=== PATIENT | female | born 1945 ===

== ENCOUNTER 2016-06-13 15:13 | Emergency (ER) | payer MEDICARE, OTHER ==
[2016-06-13 15:14] VITALS: BMI 19.8
[2016-06-13 15:20] VITALS: BP 151/53; PULSE 75; RESP 16; TEMP 98.3; O2SAT 98
--- NOTE | 2016-06-13 15:47 | ED PDOC ---
HPI: Trauma/Fall - HPI Time Seen by Provider: 06/13/16 15:22 Chief Complaint (Nursing): Lower Extremity Problem/Injury Chief Complaint (Provider): left hand pain History Per: Patient, Family (daughter) History/Exam Limitations: no limitations Onset/Duration Of Symptoms: Days (x3) Location Of Injury: Right: Knee, Left: Elbow, Hand, Knee Severity: Mild Additional Complaint(s): Patient is a 71 year old female presenting to the ED complaining left hand pain status post fall x3 days ago. Patient reports she fell onto her left outstretched arm. Hand pain is associated with elbow pain, bilateral knee pain, and rib pain. Denies head injury, dizziness, headache, numbness, or tingling. PMD: Jhoan Anthony Past Medical History Reviewed: Historical Data, Nursing Documentation, Vital Signs Vital Signs: Last Vital Signs Temp 98.3 F 06/13/16 15:17 Pulse 75 06/13/16 15:17 Resp 16 06/13/16 15:17 BP 151/53 H 06/13/16 15:17 Pulse Ox 98 06/13/16 15:17 - Medical History PMH: Arthritis, HTN, Hypercholesterolemia, Chronic Kidney Disease (HD M/W/F) Denies: CHF, COPD, HIV, Hypothyroidism, Rheumatoid Arthritis - Surgical History Surgical History: Appendectomy, Cholecystectomy, Coronary Stent - Family History Family History: States: No Known Family Hx - Home Medications Home Medications: Ambulatory Orders Medication Instructions Recorded Clopidogrel [Plavix] 75 mg PO DAILY #0 tab 01/23/15 Folic Acid 1 mg PO DAILY #0 tab 01/23/15 Gabapentin [Neurontin] 300 mg PO TID #0 cap 01/23/15 Aspirin [Ecotrin] 81 mg PO DAILY 09/09/15 Isosorbide Dinitrate 30 mg PO DAILY 09/09/15 Lisinopril [Zestril] 10 mg PO DAILY 09/09/15 Repaglinide [Prandin] 0.5 mg PO ACTID 09/09/15 Sevelamer Carbonate [Renvela] 2,400 mg PO TID 09/09/15 amLODIPine [Norvasc] 10 mg PO DAILY 09/09/15 Acetaminophen/Codeine 1 tab PO Q8 PRN 11/27/15 [Tylenol/Codeine 300 MG/30 MG] Ferrous Sulfate [Feosol] 1 tab PO DAILY 11/27/15 Isosorbide Mononitrate [Imdur] 1 tab PO DAILY 11/27/15 Labetalol [Trandate] 100 mg PO DAILY 11/27/15 [id number] Ethyl Esters 1 GM 1 gm PO DAILY 11/27/15 [Lovaza] Sucralfate [Carafate Tab] 1 tab PO TID 11/27/15 Ciprofloxacin [Cipro] 1 tab PO BID 11/28/15 Famotidine [Heartburn Prevention] 1 tab PO DAILY 11/28/15 levoFLOXacin [Levaquin] 500 mg PO DAILY #0 tab 11/29/15 Acetaminophen [Tylenol 325mg tab] 325 mg PO BID #30 tab 06/13/16 - Allergies Allergies/Adverse Reactions: Allergies Allergy/AdvReac Type Severity Reaction Status Date / Time No Known Allergies Allergy Verified 06/13/16 15:16 Review of Systems ROS Statement: Except As Marked, All Systems Reviewed And Found Negative Constitutional: Negative for: Fever Musculoskeletal: Positive for: Hand Pain (left), Other (bilateral knee pain left elbow pain rib pain ) Neurological: Negative for: Numbness Physical Exam - Reviewed Nursing Documentation Reviewed: Yes Vital Signs Reviewed: Yes - Physical Exam Appears: Positive for: Well, Non-toxic, No Acute Distress Head Exam: Positive for: ATRAUMATIC, NORMAL INSPECTION, NORMOCEPHALIC Skin: Positive for: Normal Color, Warm, DRY Eye Exam: Positive for: Normal appearance, EOMI Neck: Positive for: Normal, Painless ROM, Supple Cardiovascular/Chest: Positive for: Regular Rate, Rhythm. Negative for: Chest Non Tender (tenderness to anterior rib 6 and rib 7), Gallop, Murmur Respiratory: Positive for: Normal Breath Sounds. Negative for: Accessory Muscle Use, Rhonchi, Respiratory Distress Pulses-Dorsalis Pedis (L): 2+ Pulses-Dorsalis Pedis (R): 2+ Pulses-Radial (L): 2+ Pulses-Radial (R): 2+ Extremity: Positive for: Tenderness (to left hand ), Capillary Refill (less than 2 seconds), Swelling (left hand swelling to the ulnar aspect), Other (knee bilateral full ROM no tenderness no erythema ). Negative for: Normal ROM ( limited ROM to left hand ) Neurologic/Psych: Positive for: Alert, Oriented - ECG O2 Sat by Pulse Oximetry: 98 (RA) Pulse Ox Interpretation: Normal - Radiology X-Ray: Interpreted by Me (no fx to hand and to ribs) Medical Decision Making Medical Decision Making: Time: 15:25 Impression: 71 y/o female multi-trauma s/p fall Plan: XR Ribs XR left hand no acute fracture noted ribs or hand pt given splint velcro for hand support and advised to f.u with pmd warm compress to area for bruising and ahces pt advised against anything binding to ribs. though no fx noted on xray sm fx may be missed advised to continue f.u with pmd for PFTs if needed Scribe Attestation: Documented by Misha Patel acting as a scribe for HORACIO Reese. Provider Attestation: All medical record entries made by the Scribe were at my direction and personally dictated by me. I have reviewed the chart and agree that the record accurately reflects my personal performance of the history, physical exam, medical decision making, and the department course for this patient. I have also personally directed, reviewed, and agree with the discharge instructions and disposition. Disposition - Clinical Impression Clinical Impression: Hand injury, Rib contusion - Patient ED Disposition Is Patient to be Admitted: No Counseled Patient/Family Regarding: Studies Performed, Diagnosis, Need For Followup, Rx Given - Disposition Disposition: Routine/Home Disposition Time: 16:43 Condition: STABLE Prescriptions: Acetaminophen [Tylenol 325mg tab] 325 mg PO BID #30 tab Instructions: Rib Contusion (ED), Hematoma (ED) Print Language: SAUDI ARABIAN
--- NOTE | 2016-06-13 16:53 | RAD ---
PROCEDURE: Left Hand Radiographs. HISTORY: FOOSH injury 4d ago COMPARISON: None. FINDINGS: BONES: No apparent fracture. Osteopenia. Old fracture of the base of the 5th proximal phalanx JOINTS: [id number] degenerative changes. SOFT TISSUES: Vascular calcifications. Mild generalized soft tissue swelling. OTHER FINDINGS: None. IMPRESSION: No apparent fracture.
--- NOTE | 2016-06-13 17:12 | RAD ---
PROCEDURE: Radiographs of the chest and bilateral ribs HISTORY: rib injury after fall 4dago/pain with deep breath COMPARISON: 11/29/2015. TECHNIQUE: Frontal radiograph of the chest and multiple oblique radiographs of the bilateral ribs were obtained. FINDINGS: RIGHT RIBS: No fracture or focal lesion visualized. LEFT RIBS: No fracture or focal lesion visualized. LUNGS: Clear. PLEURA: No pneumothorax or pleural fluid. CARDIOVASCULAR: Normal sized heart. No pulmonary vascular congestion. OTHER FINDINGS: Eft presumed vascular stent in the left axilla. Possible coronary artery stent. IMPRESSION: No definite rib fracture.
== END 2016-06-13 17:15 | disposition home or self-care (01) ==
LOC: H.ER 15:13
DX: S69.92XA Unspecified injury of left wrist, hand and finger(s), initial encounter (principal); M25.561 Pain in right knee; M25.562 Pain in left knee; S20.219A Contusion of unspecified front wall of thorax, initial encounter; W19.XXXA Unspecified fall, initial encounter; Y92.89 Other specified places as the place of occurrence of the external cause; E78.00 Pure hypercholesterolemia, unspecified; I12.9 Hypertensive chronic kidney disease with stage 1 through stage 4 chronic kidney disease, or unspecified chronic kidney disease; Z79.82 Long term (current) use of aspirin; Z95.5 Presence of coronary angioplasty implant and graft

== ENCOUNTER 2016-07-29 15:52 | Emergency (ER) | payer MEDICARE, OTHER ==
[2016-07-29 19:55] VITALS: BMI 23.0
[2016-07-29 20:04] VITALS: BP 132/55; PULSE 68; RESP 16; TEMP 97.9; O2SAT 99
--- NOTE | 2016-07-29 20:13 | ED PDOC ---
HPI: Abdomen Time Seen by Provider: 07/29/16 19:00 Chief Complaint (Nursing): Abdominal Pain Chief Complaint (Provider): abdominal pain History Per: Patient History/Exam Limitations: no limitations Onset/Duration Of Symptoms: Days (4x) Current Symptoms Are (Timing): Still Present Severity: Moderate Associated Symptoms: denies: Fever, Nausea, Vomiting Additional Complaint(s): 71 year old female with a pertinent medical history of HTN, diabetes, and end stage renal disease (dialysis Tuesday, Tuesday, and Tuesday) presents to the ED with complaints of abdominal pain accompanied by distension that started 4x days ago. She denies having a fever, nausea, and vomiting. back hematoma PMD: Jhoan Anthony MD Past Medical History Reviewed: Historical Data, Nursing Documentation, Vital Signs Vital Signs: Last Vital Signs Temp 97.9 F 07/29/16 20:00 Pulse 68 07/29/16 20:00 Resp 16 07/29/16 20:00 BP 132/55 L 07/29/16 20:00 Pulse Ox 99 07/29/16 23:30 - Medical History PMH: Arthritis, HTN, Hypercholesterolemia, Chronic Kidney Disease (HD M/W/F) Denies: CHF, COPD, HIV, Hypothyroidism, Rheumatoid Arthritis - Surgical History Surgical History: Appendectomy, Cholecystectomy, Coronary Stent - Family History Family History: States: Unknown Family Hx - Social History Current smoker - smoking cessation education provided: No Alcohol: None Drugs: Denies - Home Medications Home Medications: Ambulatory Orders Medication Instructions Recorded Clopidogrel [Plavix] 75 mg PO DAILY #0 tab 01/23/15 Folic Acid 1 mg PO DAILY #0 tab 01/23/15 Gabapentin [Neurontin] 300 mg PO TID #0 cap 01/23/15 Aspirin [Ecotrin] 81 mg PO DAILY 09/09/15 Isosorbide Dinitrate 30 mg PO DAILY 09/09/15 Lisinopril [Zestril] 10 mg PO DAILY 09/09/15 Repaglinide [Prandin] 0.5 mg PO ACTID 09/09/15 Sevelamer Carbonate [Renvela] 2,400 mg PO TID 09/09/15 amLODIPine [Norvasc] 10 mg PO DAILY 09/09/15 Acetaminophen/Codeine 1 tab PO Q8 PRN 11/27/15 [Tylenol/Codeine 300 MG/30 MG] Ferrous Sulfate [Feosol] 1 tab PO DAILY 11/27/15 Isosorbide Mononitrate [Imdur] 1 tab PO DAILY 11/27/15 Labetalol [Trandate] 100 mg PO DAILY 11/27/15 [id number] Ethyl Esters 1 GM 1 gm PO DAILY 11/27/15 [Lovaza] Sucralfate [Carafate Tab] 1 tab PO TID 11/27/15 Ciprofloxacin [Cipro] 1 tab PO BID 11/28/15 Famotidine [Heartburn Prevention] 1 tab PO DAILY 11/28/15 levoFLOXacin [Levaquin] 500 mg PO DAILY #0 tab 11/29/15 Acetaminophen [Tylenol 325mg tab] 325 mg PO BID #30 tab 06/13/16 Naproxen [Naprosyn Tab] 375 mg PO TID #30 tab 06/13/16 - Allergies Allergies/Adverse Reactions: Allergies Allergy/AdvReac Type Severity Reaction Status Date / Time No Known Allergies Allergy Verified 06/13/16 15:16 Review of Systems ROS Statement: Except As Marked, All Systems Reviewed And Found Negative Constitutional: Negative for: Fever Gastrointestinal: Positive for: Abdominal Pain (distension). Negative for: Nausea, Vomiting, Diarrhea Physical Exam - Reviewed Nursing Documentation Reviewed: Yes Vital Signs Reviewed: Yes - Physical Exam Appears: Positive for: Well, Non-toxic, No Acute Distress Head Exam: Positive for: ATRAUMATIC, NORMOCEPHALIC Skin: Positive for: Normal Color, Warm, Dry Cardiovascular/Chest: Positive for: Regular Rate, Rhythm Respiratory: Positive for: Normal Breath Sounds. Negative for: Respiratory Distress Gastrointestinal/Abdominal: Positive for: Tenderness (diffuse tenderness), Distended Extremity: Positive for: Other (left upper extremity: fistula) Neurologic/Psych: Positive for: Alert, Oriented (3x) - Laboratory Results Result Diagrams: 07/29/16 21:47 07/29/16 21:47 - ECG O2 Sat by Pulse Oximetry: 99 (RA) Pulse Ox Interpretation: Normal Medical Decision Making Medical Decision Makin:00 Initial impression: 71 year old female with abdominal pain and distension Initial plan: * labs * CT abdomen and pelvis w/o PO or IV contrast * reevaluation Scribe Attestation: Documented by Teresa Nguyễn, acting as a scribe for Virginia Herrera MD. Provider Scribe Attestation: All medical record entries made by the Scribe were at my direction and personally dictated by me. I have reviewed the chart and agree that the record accurately reflects my personal performance of the history, physical exam, medical decision making, and the department course for this patient. I have also personally directed, reviewed, and agree with the discharge instructions and disposition. Disposition - Clinical Impression Clinical Impression: Abdominal pain - Disposition Referrals: Jhoan Anthony MD [Primary Care Provider] - Condition: IMPROVED Additional Instructions: follow up with your primary doctor tomorrow return to the ED with any worsening or concerning symptoms Instructions: Abdominal Pain (ED) Print Language: RWANDAN
[2016-07-29 21:51] LABS: BASO % 0.8 % (0.0-2.0); EOS # 0.2 K/uL (0.0-0.7); EOS % 6.6 % (0.0-4.0); HEMATOCRIT 33.8 % (34.0-47.0); LYMPH # 1.3 K/uL (1.0-4.3); LYMPH % 37.4 % (20.0-40.0); MEAN CELL VOLUME 93.6 fl (81.0-99.0); MEAN CORPUSCULAR HEMOGLOBIN 30.1 pg (27.0-31.0); MEAN CORPUSCULAR HGB CONC 32.2 g/dL (33.0-37.0); MONO # 0.3 K/uL (0.0-0.8); MONO % 9.8 % (0.0-10.0); NEUT # 1.6 K/uL (1.8-7.0); NEUT % 45.4 % (50.0-75.0); NRBC % 0.1 % (0.0-0.0); RED CELL DISTRIBUTION WIDTH 15.9 % (11.5-14.5); WHITE BLOOD COUNT 3.4 K/uL (4.8-10.8)
[2016-07-29 22:05] LABS: ALB/GLOB RATIO 1.5 (1.0-2.1); BILIRUBIN,TOTAL 0.6 mg/dl (0.2-1.3); CALCIUM 9.4 mg/dL (8.4-10.2); POTASSIUM 4.2 MMOL/L (3.6-5.0); TOTAL PROTEIN 8.1 G/DL (6.3-8.2)
--- NOTE | 2016-07-29 22:58 | CT ---
EXAM: CT Abdomen and Pelvis Without Intravenous Contrast CLINICAL HISTORY: 71 years old, female; Pain; Abdominal pain; Generalized; Additional info: Abd pain TECHNIQUE: Axial computed tomography images of the abdomen and pelvis without intravenous contrast. This CT exam was performed using one or more of the following dose reduction techniques: automated exposure control, adjustment of the mA and/or kV according to patient size, and/or use of iterative reconstruction technique. Coronal and sagittal reformatted images were created and reviewed. EXAM DATE/TIME: 07/29/2016 9:39 PM COMPARISON: CT - ABD PELVIS W/O PO OR IV CONT 11/27/2015 9:28:30 PM FINDINGS: Cholecystectomy clips are present. There is intrahepatic duct dilation similar to prior likely secondary to cholecystectomy. The spleen and pancreas appear grossly normal on this non-contrast study. There is mild bilateral perinephric stranding similar to prior. There are non obstructing renal calculi.No hydronephrosis. No obstructing calculi. There is air in the urinary bladder. The colon is distended with stool consistent with constipation. The patient appears to be status post appendectomy. Evidence of prior surgery at L4-5 unchanged from prior. Compression fracture with anterior wedging L1 unchanged from prior. There are atherosclerotic changes of the aorta similar to prior. Again seen are calcifications in the subcutaneous fat of buttocks presumably injection granulomas. On images 138 through 146, series 4, there is a rounded approximately 4 x 2 cm soft tissue density in the subcutaneous fat of the right buttock with stranding in the adjacent fat. I suspect hematoma. Correlation with history of trauma to this region is recommended. IMPRESSION: Cholecystectomy with mild intrahepatic duct dilation similar to prior. Air in urinary bladder.Recommend correlation with urinalysis to exclude infectious etiology. Constipation. Probable small subcutaneous hematoma right buttock as discussed above.
== END 2016-07-30 00:05 | disposition home or self-care (01) ==
LOC: H.ER 15:52
DX: R10.84 Generalized abdominal pain (principal); I10 Essential (primary) hypertension; E11.9 Type 2 diabetes mellitus without complications; N18.6 End stage renal disease; Z90.49 Acquired absence of other specified parts of digestive tract

== ENCOUNTER 2016-08-09 14:05 | Inpatient (IN) | payer MEDICARE, OTHER ==
[2016-08-09 14:06] VITALS: BMI 23.0
[2016-08-09 15:17] LABS: BASO % 0.7 % (0.0-2.0); EOS # 0.2 K/uL (0.0-0.7); EOS % 5.1 % (0.0-4.0); HEMATOCRIT 29.5 % (34.0-47.0); LYMPH # 1.4 K/uL (1.0-4.3); LYMPH % 30.9 % (20.0-40.0); MEAN CELL VOLUME 93.9 fl (81.0-99.0); MEAN CORPUSCULAR HEMOGLOBIN 30.7 pg (27.0-31.0); MEAN CORPUSCULAR HGB CONC 32.8 g/dL (33.0-37.0); MEAN PLATELET VOLUME 8.4 fl (7.2-11.7); MONO # 0.3 K/uL (0.0-0.8); MONO % 6.6 % (0.0-10.0); NEUT # 2.7 K/uL (1.8-7.0); NEUT % 56.7 % (50.0-75.0); NRBC % 0.1 % (0.0-0.0); RED CELL DISTRIBUTION WIDTH 15.8 % (11.5-14.5); WHITE BLOOD COUNT 4.7 K/uL (4.8-10.8)
[2016-08-09 15:21] LABS: ALB/GLOB RATIO 1.6 (1.0-2.1); ALKALINE PHOSPHATASE 79 U/L (38-126); ALT/SGPT 34 U/L (9-52); AST/SGOT 48 U/L (14-36); BILIRUBIN,TOTAL 0.5 mg/dl (0.2-1.3); CALCIUM 8.9 mg/dL (8.4-10.2); CARBON DIOXIDE 21 mmol/L (22-30); CHLORIDE 102 mmol/L (98-107); GFR AFRICAN-AMERICAN 7; GLUCOSE,RANDOM 91 mg/dL (65-105); SODIUM 137 mmol/l (132-148); TOTAL PROTEIN 6.8 G/DL (6.3-8.2)
--- NOTE | 2016-08-09 15:23 | RAD ---
HISTORY: CP COMPARISON: 06/13/2016 FINDINGS: LUNGS: Mild increased pulmonary vascular congestion. PLEURA: No significant pleural effusion identified, no pneumothorax apparent.Biapical pleural parenchymal thickening noted. CARDIOVASCULAR: Mildly enlarged cardiomediastinal silhouette. Coronary artery stent. These findings are stable since the prior radiograph from 06/13/2016. OSSEOUS STRUCTURES: The osseous structures demonstrate degenerative changes. VISUALIZED UPPER ABDOMEN: Upper abdomen is suboptimally evaluated. OTHER FINDINGS: Presumed vascular stent in the left axilla. IMPRESSION: Mild increased pulmonary vascular congestion. Other findings as above.
[2016-08-09 15:25] LABS: BLOOD UREA NITROGEN 100 mg/dl (7-17)
[2016-08-09 15:26] LABS: PARTIAL THROMBOPLASTIN TIME 20.9 SECONDS (23.3-32.5)
[2016-08-09] MEDS ORDERED: Sod Polystyrene Sulf 15 gm/60 ml Oral Susp PO STA (15:35)
[2016-08-09] MEDS ORDERED: Albuterol 0.083% Inhal Sol (2.5 mg/3 mL) UD INH STA (15:35)
[2016-08-09 15:36] LABS: POTASSIUM 6.1 MMOL/L (3.6-5.0)
[2016-08-09] MEDS ORDERED: Dextrose 50% SYRINGE Inj (50 ml) IVP STA ×3 (15:36→18:16)
[2016-08-09] MEDS ORDERED: Insulin Regular 100 units/ml IVP STA (15:36)
[2016-08-09] MEDS ORDERED: Albuterol 0.083% Inhal Sol (2.5 mg/3 mL) UD ONE (15:55)
[2016-08-09] MEDS ORDERED: Insulin Regular 100 units/ml ONE (15:56)
[2016-08-09] MEDS ORDERED: Dextrose 50% SYRINGE Inj (50 ml) ONE ×3 (15:57→18:05)
[2016-08-09] MEDS ORDERED: Sod Polystyrene Sulf 15 gm/60 ml Oral Susp ONE (15:57)
--- NOTE | 2016-08-09 16:04 | ED PDOC ---
HPI: Chest Pain Time Seen by Provider: 08/09/16 14:30 Chief Complaint (Nursing): Chest Pain Chief Complaint (Provider): Chest Pain History Per: Patient History/Exam Limitations: no limitations Onset/Duration Of Symptoms: Days (ongoing for a few months) Current Symptoms Are (Timing): Still Present Severity: Moderate Associated Symptoms: Other (lower back pain; denies weakness, paresthesias, or recent trauma). denies: Dyspnea Exacerbating Factors: Movement, Other (ambulation) Additional Complaint(s): Geraldine Nash is a 71 year old female, with a past medical history of chronic renal disease, in which she is scheduled for dialysis every Tuesday, Tuesday, and Tuesday, coronary artery disease, inclusive of a coronary stent placement, and hypertension, who presents to the emergency department for the evaluation of chest pain, radiating to her lower back since 1 week ago, that the patient has been experiencing for a few months. Ambulation and movement reportedly exacerbate her lower back pain. Denies dyspnea, weakness, paresthesias, or recent trauma. Of note, patient was due for dialysis today; however, came into the emergency room instead for her pain. PMD: Jhoan Anthony Past Medical History Reviewed: Historical Data, Nursing Documentation, Vital Signs Vital Signs: Last Vital Signs Temp 97.7 F 08/09/16 14:12 Pulse 64 08/09/16 14:35 Resp 18 08/09/16 14:12 BP 122/57 L 08/09/16 16:12 Pulse Ox 99 08/09/16 16:32 - Medical History PMH: Arthritis, CAD, HTN, Hypercholesterolemia, Chronic Kidney Disease (HD M/W/F ) Denies: CHF, COPD, HIV, Hypothyroidism, Rheumatoid Arthritis Other PMH: Myocardial Infarction (x2), Pyelonephritis - Surgical History Surgical History: Appendectomy, Cholecystectomy, Coronary Stent Other surgeries: Hysterectomy - Family History Family History: States: No Known Family Hx - Social History Current smoker - smoking cessation education provided: No Ex-Smoker (has not smoked in the last 12 months): No Alcohol: None Drugs: Denies - Home Medications Home Medications: Ambulatory Orders Medication Instructions Recorded amLODIPine [Norvasc] 10 mg PO DAILY 08/09/16 - Allergies Allergies/Adverse Reactions: Allergies Allergy/AdvReac Type Severity Reaction Status Date / Time No Known Allergies Allergy Verified 06/13/16 15:16 PRAKASH Risk Score for UA/NSTEMI - PRAKASH Risk Score Age > 64: YES 3 or more CAD Risk Factors: YES Known CAD (Stenosis greater than 50%): YES Aspirin use in past 7 days: YES Severe Angina: NO EKG ST changes greater than 0.5mm: NO Positive Cardiac Marker: NO PRAKASH Score: 4 Risk %: 20% Review of Systems ROS Statement: Except As Marked, All Systems Reviewed And Found Negative Cardiovascular: Positive for: Chest Pain Respiratory: Negative for: Shortness of Breath Musculoskeletal: Positive for: Back Pain (lower) Neurological: Negative for: Weakness, Other (paresthesias) Physical Exam - Reviewed Nursing Documentation Reviewed: Yes Vital Signs Reviewed: Yes - Physical Exam Appears: Positive for: Well, Non-toxic, No Acute Distress Head Exam: Positive for: ATRAUMATIC, NORMOCEPHALIC Skin: Positive for: Normal Color, Warm Cardiovascular/Chest: Positive for: Regular Rate, Rhythm. Negative for: Chest Non Tender (midsternal tenderness to palpations), Murmur Respiratory: Positive for: Normal Breath Sounds. Negative for: Wheezing, Respiratory Distress Gastrointestinal/Abdominal: Positive for: Normal Exam, Soft. Negative for: Tenderness, Guarding, Rebound Back: Positive for: Normal Inspection, Other (b/l lower back tenderness to palpations). Negative for: L CVA Tenderness, R CVA Tenderness, Vertebral Tenderness Extremity: Positive for: Normal ROM. Negative for: Tenderness, Swelling Neurologic/Psych: Positive for: Alert, Oriented. Negative for: Motor/Sensory Deficits - Laboratory Results Result Diagrams: 08/09/16 14:55 08/09/16 14:55 - ECG Interpretation Of ECG: SR @ 64, LAD, RBBB (unchanged from 11/27/15). O2 Sat by Pulse Oximetry: 99 (RA) Pulse Ox Interpretation: Normal - Radiology X-Ray: Read By Radiologist (Mild increased pulmonary vascular congestion. Other findings as above.) - CT Scan/US CT L-spine Other Rad Studies (CT/US): Read By Radiologist Other Rad Interpretation: Pending. - Physician Consult Information Physician Contacted: Jm Ta Outcome Of Conversation: Call RN for emergent HD. Medical Decision Making Medical Decision Makin:30 Initial Impression: Chest wall pain, lower back pain Initial Plan: * CT Lumbar Spine w/o Contrast * Chest X-Ray * Electrocardiogram (x2) * Complete Blood Count * Comprehensive Metabolic Panel * Prothrombin Time * Partial Thromboplastin Time * Troponin I * Urinalysis * Albuterol 0.083% 2.5 mg INH * Aspirin 325 mg PO * Dextrose 50% ml IVP * HumuLIN R 10 units IVP * Lasix 40 mg IVP * Sodium Polystyrene Sulfonate 30 gm PO * Peak Flow Pre/Post Treatment * Reevaluation 15:21 Chest X-Ray Results FINDINGS: Lungs: Mild increased pulmonary vascular congestion. Pleura: No significant pleural effusion identified, no pneumothorax apparent. Biapical pleural parenchymal thickening noted. Cardiovascular: Mildly enlarged cardiomediastinal silhouette. Coronary artery stent. These findings are stable since the prior radiograph from 06/13/2016. Osseous Structures: The osseous structures demonstrate degenerative changes. Visualed Upper Abdomen: Upper abdomen is suboptimally evaluated. OTHER FINDINGS: Presumed vascular stent in the left axilla. IMPRESSION: Mild increased pulmonary vascular congestion. Other findings as above. 17:08 CT Lumbar Spine Results FINDINGS: Vertebrae: Mildly exaggerated lumbar lordosis. Disruption of the superior endplate of the vertebral body remains unchanged since 11/27/2015. Near complete effacement of the T12-L1 intervertebral disc space. Intervertebral disc spacer noted at L4- L5. Vacuum disc phenomenon at L5-S1. Discs/Spinal Canal/Neural Foramina: L1-2: Posterior disc osteophyte ridge. No definite foraminal narrowing. L2-3: Concentric disc bulge without definite neural foraminal narrowing. L3-4: Concentric disc bulge with mild bilateral neural foraminal narrowing. L4-5: Postsurgical changes. L5-S1: Concentric disc bulge associated with osteophytic ridge leading to mild to moderate bilateral neural foraminal narrowing. Paraspinal Soft Tissues: Paraspinal musculature appears relatively unremarkable. OTHER FINDINGS: Extensive atherosclerotic calcification throughout the abdominal aorta. Atrophic kidneys seen bilaterally. Possible cysts in the right kidney. Both adrenal glands appear unremarkable. Partially visualized hiatal hernia. Visualized portions of the liver appears unremarkable. Visualized portions of the bowel appears unremarkable. Surgical material in the right lower quadrant of the abdomen. IMPRESSION: Degenerative changes as described above involving the lumbar spine. Intervertebral disc spaces noted at L4-L5. Disruption of superior endplate of the L1 vertebral body, stable since 11/27/2015. Scribe Attestation: Documented by Livan Lyman, acting as a scribe for Mary Membreno MD. Provider Scribe Attestation: All medical record entries made by the Scribe were at my direction and personally dictated by me. I have reviewed the chart and agree that the record accurately reflects my personal performance of the history, physical exam, medical decision making, and the department course for this patient. I have also personally directed, reviewed, and agree with the discharge instructions and disposition. Disposition - Clinical Impression Clinical Impression: Chest pain, Low back pain, Hyperkalemia, ESRD on dialysis - Patient ED Disposition Is Patient to be Admitted: Yes - Disposition Disposition Time: 16:32 Condition: STABLE
--- NOTE | 2016-08-09 17:09 | CT ---
PROCEDURE: CT Lumbar Spine without contrast HISTORY: Bilateral low back pain COMPARISON: CT abdomen pelvis from 07/29/2016 and from 11/27/2015. TECHNIQUE: Axial computed tomography images were obtained of the lumbar spine without the use of intravenous contrast. Coronal and sagittal reformatted images were created and reviewed. Radiation dose: Total exam DLP = 725.96 mGy-cm. This CT exam was performed using one or more of the following dose reduction techniques: Automated exposure control, adjustment of the mA and/or kV according to patient size, and/or use of iterative reconstruction technique. FINDINGS: VERTEBRAE: Mildly exaggerated lumbar lordosis. Disruption of the superior endplate of the vertebral body remains unchanged since 11/27/2015. Near complete effacement of the T12-L1 intervertebral disc space. Intervertebral disc spacer noted at L4-L5. Vacuum disc phenomenon at L5-S1. DISCS/SPINAL CANAL/NEURAL FORAMINA: L1-2: Posterior disc osteophyte ridge. No definite foraminal narrowing. L2-3: Concentric disc bulge without definite neural foraminal narrowing. L3-4: Concentric disc bulge with mild bilateral neural foraminal narrowing. L4-5: Postsurgical changes. L5-S1: Concentric disc bulge associated with osteophytic ridge leading to mild to moderate bilateral neural foraminal narrowing. PARASPINAL SOFT TISSUES: Paraspinal musculature appears relatively unremarkable. OTHER FINDINGS: Extensive atherosclerotic calcification throughout the abdominal aorta. Atrophic kidneys seen bilaterally. Possible cysts in the right kidney. Both adrenal glands appear unremarkable. Partially visualized hiatal hernia. Visualized portions of the liver appears unremarkable. Visualized portions of the bowel appears unremarkable. Surgical material in the right lower quadrant of the abdomen. IMPRESSION: Degenerative changes as described above involving the lumbar spine. Intervertebral disc spaces noted at L4-L5. Disruption of superior endplate of the L1 vertebral body, stable since 11/27/2015.
[2016-08-10 05:27] LABS: ABG ALLEN TEST YES; ARTERIAL BLOOD GAS HCO3 29.6 mmol/L (21-28); ARTERIAL BLOOD GAS O2 CAPACITY 14.5 mL/dL (16-24); ARTERIAL BLOOD GAS PH 7.39 (7.35-7.45); ARTERIAL BLOOD GAS PO2 68 mm/Hg (80-100); ARTERIAL BLOOD HGB O2 SAT 93.9 % (95.0-98.0); CARBOXYHEMOGLOBIN 1.2 % (0.5-1.5); HHB 3.4 % (0.0-5.0); METHEMOGLOBIN 1.5 % (0.0-3.0)
[2016-08-10 06:54] LABS: BASO % 0.7 % (0.0-2.0); EOS # 0.2 K/uL (0.0-0.7); EOS % 3.9 % (0.0-4.0); LYMPH # 0.9 K/uL (1.0-4.3); LYMPH % 19.7 % (20.0-40.0); MEAN CELL VOLUME 92.8 fl (81.0-99.0); MEAN CORPUSCULAR HEMOGLOBIN 30.9 pg (27.0-31.0); MEAN CORPUSCULAR HGB CONC 33.4 g/dL (33.0-37.0); MEAN PLATELET VOLUME 8.4 fl (7.2-11.7); MONO # 0.3 K/uL (0.0-0.8); MONO % 5.8 % (0.0-10.0); NEUT # 3.2 K/uL (1.8-7.0); NEUT % 69.9 % (50.0-75.0); NRBC % 0.1 % (0.0-0.0); RED CELL DISTRIBUTION WIDTH 15.7 % (11.5-14.5); WHITE BLOOD COUNT 4.6 K/uL (4.8-10.8)
[2016-08-10 07:10] LABS: ALB/GLOB RATIO 1.5 (1.0-2.1); BILIRUBIN,TOTAL 0.6 mg/dl (0.2-1.3); CALCIUM 8.6 mg/dL (8.4-10.2); TOTAL PROTEIN 6.9 G/DL (6.3-8.2)
--- NOTE | 2016-08-10 08:06 | CARD ---
APPROVED REPORT EKG Measurement Heart [id number] <Conclusion> Sinus rhythm with 1st degree AV block Left axis deviation Right bundle branch block Abnormal ECG
[2016-08-10] MEDS ORDERED: Patient's Own Med (Isosorbide Dinitrate [Isosorbide Dinitrate] 30 MG) PO SCH (09:00)
[2016-08-10] MEDS: Omega-3-Acid Ethyl Esters 1 GM Cap PO SCH (10:29)
--- NOTE | 2016-08-10 10:30 | CP.PCM.CON ---
History of Present Illness - History of Present Illness History of Present Illness: Patient is a 71 years of age female came to the emergency room complaining of low back pain and atypical chest pain patient did not go for dialysis and she came to the emergency room. She was fond to have high potassium I BUN/ creatinine and admitted for further evaluation. Patient known to me with end- stage renal disease on maintenance dialysis Tuesday. And emergency dialysis was called then last night because of the hyperkalemia and perform uncompleted and tolerated very well. Eric has long history complaining of low back pain with history of osteoarthritis of the spine and perhaps disc disease she has been follow-up by her primary doctor and I'm not sure if she has been seen by orthopedic as well. He has history of coronary artery disease was a previous stent placement and history of hypertension Review of Systems - Constitutional Constitutional: Fatigue, Weakness. absent: Anorexia, Daytime Sleepiness - EENT Eyes: As Per HPI Ears: As Per HPI Nose/Mouth/Throat: As Per HPI - Cardiovascular Cardiovascular: Chest Pain. absent: Chest Pain at Rest, Dyspnea, Dyspnea on Exertion, Edema, Leg Edema, Syncope - Respiratory Respiratory: Chest Congestion. absent: Excessive Mucous Production - Gastrointestinal Gastrointestinal: absent: Abdominal Pain, Bloating, Coffee Ground Emesis, Diarrhea, Nausea - Musculoskeletal Musculoskeletal: Arthralgias, Back Pain, Neck Pain - Integumentary Integumentary: As Per HPI - Neurological Neurological: As Per HPI. absent: Confusion, Focal Weakness, Tremor, Vertigo - Psychiatric Psychiatric: As Per HPI Past Patient History - Past Medical History & Family History Past Medical History?: Yes - Past Social History Smoking Status: Former Smoker - CARDIAC Hx Congestive Heart Failure: No Hx Hypercholesterolemia: Yes Hx Hypertension: Yes - PULMONARY Hx Chronic Obstructive Pulmonary Disease (COPD): No - NEUROLOGICAL HX Cerebrovascular Accident: No - HEENT Hx HEENT Problems: No - RENAL Hx Chronic Kidney Disease: Yes (HD M/W/F) - ENDOCRINE/METABOLIC Hx Hypothyroidism: No - HEMATOLOGICAL/ONCOLOGICAL Hx Human Immunodeficiency Virus (HIV): No - INTEGUMENTARY Hx Dermatological Problems: No - MUSCULOSKELETAL/RHEUMATOLOGICAL Hx Arthritis: Yes Hx Falls: Yes Hx Rheumatoid Arthritis: No - GASTROINTESTINAL Hx Gastrointestinal Disorders: No - GENITOURINARY/GYNECOLOGICAL Hx Genitourinary Disorders: No - PSYCHIATRIC Hx Psychophysiologic Disorder: No Hx Substance Use: No - SURGICAL HISTORY Hx Appendectomy: Yes Hx Cholecystectomy: Yes Hx Coronary Stent: Yes - ANESTHESIA Hx Anesthesia: Yes Hx Anesthesia Reactions: No Hx Malignant Hyperthermia: No Meds Allergies/Adverse Reactions: Allergies Allergy/AdvReac Type Severity Reaction Status Date / Time No Known Allergies Allergy Verified 06/13/16 15:16 - Medications Medications: Current Medications Amlodipine Besylate (Norvasc) 10 mg PO DAILY [facility] Aspirin (Aspirin Chewable) 81 mg PO DAILY [facility] Famotidine (Pepcid) 20 mg PO DAILY [facility] Ferrous Sulfate (Feosol) 325 mg PO DAILY [facility] Folic Acid (Folic Acid) 1 mg PO DAILY [facility] Gabapentin (Neurontin) 300 mg PO TID [facility] Heparin Sodium (Porcine) (Heparin) 5,000 units SC Q8 [facility] PRN Reason: Protocol Last Admin: 08/10/16 01:08 Dose: 5,000 units Isosorbide Mononitrate (Imdur) 30 mg PO DAILY [facility] Labetalol HCl (Trandate) 100 mg PO BID [facility] Lisinopril (Zestril) 10 mg PO DAILY [facility] [id number] Ethyl Esters (Lovaza) 1 gm PO DAILY [facility] Oxycodone/Acetaminophen (Percocet 5/325 Mg Tab) 1 tab PO DAILY PRN PRN Reason: Pain, Mild (1-3) Stop: 08/13/16 09:01 Repaglinide (Prandin) 0.5 mg PO DAILY [facility] Sevelamer HCl (Renagel) 2,400 mg PO TID [facility] Sucralfate (Carafate Tab) 1 gm PO TID [facility] Temazepam (Restoril) 30 mg PO HS [facility] Last Admin: 08/10/16 01:20 Dose: 30 mg Physical Exam - Constitutional Appears: No Acute Distress - ENT Exam ENT Exam: Mucous Membranes Moist - Respiratory Exam Respiratory Exam: NORMAL BREATHING PATTERN. absent: Chest Wall Tenderness - Cardiovascular Exam Cardiovascular Exam: REGULAR RHYTHM. absent: Rubs - GI/Abdominal Exam GI & Abdominal Exam: Normal Bowel Sounds - Extremities Exam Extremities exam: Negative for: calf tenderness - Back Exam Back exam: absent: CVA tenderness (L), CVA tenderness (R) - Neurological Exam Neurological exam: Alert Results - Vital Signs Recent Vital Signs: Last Vital Signs Temp 98.2 F 08/10/16 08:16 Pulse 84 08/10/16 08:16 Resp 18 08/10/16 08:16 BP 149/66 08/10/16 08:16 Pulse Ox 100 08/10/16 08:16 - Labs Result Diagrams: 08/10/16 05:15 08/10/16 05:15 Labs: Laboratory Results - last 24 hr 08/09/16 08/09/16 08/09/16 18:10 18:35 21:37 WBC RBC Hgb Hct MCV MCH MCHC RDW Plt Count MPV Neut % (Auto) Lymph % (Auto) Duval % (Auto) Eos % (Auto) Baso % (Auto) Neut # Lymph # Duval # Eos # Baso # APTT pCO2 pO2 HCO3 ABG pH ABG Total CO2 ABG O2 Saturation ABG O2 Content ABG Base Excess ABG Hemoglobin ABG Carboxyhemoglobin POC ABG HHb (Measured) ABG Methemoglobin ABG O2 Capacity Zac Test A-a O2 Difference Hgb O2 Saturation FiO2 Sodium Potassium Chloride Carbon Dioxide Anion Gap BUN Creatinine Est GFR ( Amer) Est GFR (Non-Af Amer) POC Glucose (mg/dL) 36 L* 226 H 139 H Random Glucose Calcium Total Bilirubin AST ALT Alkaline Phosphatase Troponin I Total Protein Albumin Globulin Albumin/Globulin Ratio 08/10/16 08/10/16 08/10/16 00:30 05:15 05:15 WBC 4.6 L RBC 3.45 L Hgb 10.7 L Hct 32.0 L MCV 92.8 MCH 30.9 MCHC 33.4 RDW 15.7 H Plt Count 144 MPV 8.4 Neut % (Auto) 69.9 Lymph % (Auto) 19.7 L Duval % (Auto) 5.8 Eos % (Auto) 3.9 Baso % (Auto) 0.7 Neut # 3.2 Lymph # 0.9 L Duval # 0.3 Eos # 0.2 Baso # 0.0 APTT 21.3 L pCO2 pO2 HCO3 ABG pH ABG Total CO2 ABG O2 Saturation ABG O2 Content ABG Base Excess ABG Hemoglobin ABG Carboxyhemoglobin POC ABG HHb (Measured) ABG Methemoglobin ABG O2 Capacity Zac Test A-a O2 Difference Hgb O2 Saturation FiO2 Sodium Potassium Chloride Carbon Dioxide Anion Gap BUN Creatinine Est GFR ( Amer) Est GFR (Non-Af Amer) POC Glucose (mg/dL) Random Glucose Calcium Total Bilirubin AST ALT Alkaline Phosphatase Troponin I < 0.0120 Total Protein Albumin Globulin Albumin/Globulin Ratio 08/10/16 08/10/16 08/10/16 05:15 05:15 05:24 WBC RBC Hgb Hct MCV MCH MCHC RDW Plt Count MPV Neut % (Auto) Lymph % (Auto) Duval % (Auto) Eos % (Auto) Baso % (Auto) Neut # Lymph # Duval # Eos # Baso # APTT pCO2 53 H pO2 68 L HCO3 29.6 H ABG pH 7.39 ABG Total CO2 33.7 H ABG O2 Saturation 96.5 ABG O2 Content 14.0 L ABG Base Excess 6.0 H ABG Hemoglobin 10.6 L ABG Carboxyhemoglobin 1.2 POC ABG HHb (Measured) 3.4 ABG Methemoglobin 1.5 ABG O2 Capacity 14.5 L Zac Test Yes A-a O2 Difference 15.0 Hgb O2 Saturation 93.9 L FiO2 21.0 Sodium 137 Potassium 4.0 Chloride 96 L Carbon Dioxide 29 Anion Gap 16 BUN 35 H Creatinine 3.7 H Est GFR ( Amer) 15 Est GFR (Non-Af Amer) 12 POC Glucose (mg/dL) Random Glucose 101 Calcium 8.6 Total Bilirubin 0.6 AST 269 H D ALT 145 H D Alkaline Phosphatase 141 H D Troponin I < 0.0120 Total Protein 6.9 Albumin 4.2 Globulin 2.8 Albumin/Globulin Ratio 1.5 08/10/16 05:54 WBC RBC Hgb Hct MCV MCH MCHC RDW Plt Count MPV Neut % (Auto) Lymph % (Auto) Duval % (Auto) Eos % (Auto) Baso % (Auto) Neut # Lymph # Duval # Eos # Baso # APTT pCO2 pO2 HCO3 ABG pH ABG Total CO2 ABG O2 Saturation ABG O2 Content ABG Base Excess ABG Hemoglobin ABG Carboxyhemoglobin POC ABG HHb (Measured) ABG Methemoglobin ABG O2 Capacity Zac Test A-a O2 Difference Hgb O2 Saturation FiO2 Sodium Potassium Chloride Carbon Dioxide Anion Gap BUN Creatinine Est GFR ( Amer) Est GFR (Non-Af Amer) POC Glucose (mg/dL) 105 Random Glucose Calcium Total Bilirubin AST ALT Alkaline Phosphatase Troponin I Total Protein Albumin Globulin Albumin/Globulin Ratio Assessment & Plan (1) ESRD on dialysis Assessment and Plan: Patient with end stage renal disease she missed her dialysis yesterday as outpatient and she came with hyperkalemia high BUN/creatinine and creatinine required dialysis to be done with ultrafiltration approximately 2500 mL potassium bath 2 mEq Patient tolerated hemodialysis well Repeat chemistry today potassium is okay and BU and creatinine came down I believe patient to be seen by [address] she has CT scan of the lumbosacral spine see the report also noted that liver enzyme became abnormal overnight has to be repeated and the proceed from there Status: Chronic (2) Low back pain Status: Acute
[2016-08-10 12:30] LABS: ALB/GLOB RATIO 1.5 (1.0-2.1); BILIRUBIN,TOTAL 0.6 mg/dl (0.2-1.3); CALCIUM 8.1 mg/dL (8.4-10.2); POTASSIUM 4.6 MMOL/L (3.6-5.0); TOTAL PROTEIN 6.9 G/DL (6.3-8.2)
--- NOTE | 2016-08-10 16:04 | CARD ---
APPROVED REPORT EKG Measurement Heart [id number] <Conclusion> Normal sinus rhythm Right bundle branch block Left anterior fascicular block Bifascicular block Abnormal ECG
[2016-08-10] MEDS: Insulin Lispro (humaLOG) 100 Units/ml Inj SC SCH ×2 (16:52→22:09)
[2016-08-10] MEDS: Oxycodone/Acetaminophen 5/325 mg Tab PO PRN (21:00)
--- NOTE | 2016-08-10 23:34 | CP.PCM.HP ---
History of Present Illness - History of Present Illness History of Present Illness: A 71 yr old female with hx of DM, HTN, ESRD on HD , who is dependant on ADL\ IDLS uses walker at home came with hx of feeling tired and chest pain for few days, no radiation , left side ,sudden onset, dull ache denies fall\travel, SOB. denies leg swelling,fever. labs noted-high LFTS., K-6.2,due for HD last night. son at bed side Present on Admission - Present on Admission Any Indicators Present on Admission: No Review of Systems - Constitutional Constitutional: Fatigue. absent: Anorexia, Fever, Frequent Falls, Weight Loss - EENT Nose/Mouth/Throat: absent: Nasal Congestion, Dysphagia, Sore Throat - Cardiovascular Cardiovascular: Chest Pain. absent: Edema, Leg Edema, Paroxysmal Nocturnal Dyspnea - Respiratory Respiratory: absent: Cough, Wheezing, Chest Congestion, Excessive Mucous Production - Gastrointestinal Gastrointestinal: Dysphagia. absent: Abdominal Pain, Diarrhea, Dyspepsia, Nausea, Vomiting - Musculoskeletal Musculoskeletal: Arthralgias, Limited Range of Motion, Myalgias. absent: Neck Pain - Integumentary Integumentary: absent: Sores - Neurological Neurological: Disequilibrium. absent: Focal Weakness, Headaches, Paresthesias, Vertigo - Psychiatric Psychiatric: absent: Hallucinations, Mood Swings - Endocrine Endocrine: absent: Flushing, Palpitations - Hematologic/Lymphatic Hematologic: absent: Easy Bleeding, Lymphadenopathy Past Patient History - Past Medical History & Family History Past Medical History?: Yes - Past Social History Smoking Status: Former Smoker - CARDIAC Hx Congestive Heart Failure: No Hx Hypercholesterolemia: Yes Hx Hypertension: Yes - PULMONARY Hx Chronic Obstructive Pulmonary Disease (COPD): No - NEUROLOGICAL HX Cerebrovascular Accident: No - HEENT Hx HEENT Problems: No - RENAL Hx Chronic Kidney Disease: Yes (HD M/W/F) - ENDOCRINE/METABOLIC Hx Hypothyroidism: No - HEMATOLOGICAL/ONCOLOGICAL Hx Human Immunodeficiency Virus (HIV): No - INTEGUMENTARY Hx Dermatological Problems: No - MUSCULOSKELETAL/RHEUMATOLOGICAL Hx Arthritis: Yes Hx Falls: Yes Hx Rheumatoid Arthritis: No - GASTROINTESTINAL Hx Gastrointestinal Disorders: No - GENITOURINARY/GYNECOLOGICAL Hx Genitourinary Disorders: No - PSYCHIATRIC Hx Psychophysiologic Disorder: No Hx Substance Use: No - SURGICAL HISTORY Hx Appendectomy: Yes Hx Cholecystectomy: Yes Hx Coronary Stent: Yes - ANESTHESIA Hx Anesthesia: Yes Hx Anesthesia Reactions: No Hx Malignant Hyperthermia: No Meds Allergies/Adverse Reactions: Allergies Allergy/AdvReac Type Severity Reaction Status Date / Time No Known Allergies Allergy Verified 06/13/16 15:16 Physical Exam - Constitutional Appears: No Acute Distress - Head Exam Head Exam: NORMAL INSPECTION - Eye Exam Eye Exam: EOMI, PERRL. absent: Scleral icterus Pupil Exam: PERRL - ENT Exam ENT Exam: Normal Exam - Neck Exam Neck exam: Negative for: Lymphadenopathy - Respiratory Exam Respiratory Exam: Clear to Auscultation Bilateral, NORMAL BREATHING PATTERN. absent: Rales, Wheezes - Cardiovascular Exam Cardiovascular Exam: REGULAR RHYTHM, +S1, +S2, Systolic Murmur - GI/Abdominal Exam GI & Abdominal Exam: Normal Bowel Sounds, Soft. absent: Tenderness - Extremities Exam Extremities exam: Negative for: pedal edema Additional comments: 1 + b\l pedal pulse left [id number] - Psychiatric Exam Psychiatric exam: Normal Affect, Normal Mood - Skin Skin Exam: Intact Results - Vital Signs Recent Vital Signs: Last Vital Signs Temp 98.5 F 08/10/16 20:03 Pulse 71 08/10/16 20:03 Resp 18 08/10/16 20:03 BP 97/57 L 08/10/16 20:03 Pulse Ox 96 08/10/16 20:03 - Labs Result Diagrams: 08/10/16 05:15 08/10/16 11:50 Labs: Laboratory Results - last 24 hr 08/09/16 08/09/16 08/10/16 18:10 18:35 00:30 WBC RBC Hgb Hct MCV MCH MCHC RDW Plt Count MPV Neut % (Auto) Lymph % (Auto) Fisher % (Auto) Eos % (Auto) Baso % (Auto) Neut # Lymph # Fisher # Eos # Baso # APTT pCO2 pO2 HCO3 ABG pH ABG Total CO2 ABG O2 Saturation ABG O2 Content ABG Base Excess ABG Hemoglobin ABG Carboxyhemoglobin POC ABG HHb (Measured) ABG Methemoglobin ABG O2 Capacity Zac Test A-a O2 Difference Hgb O2 Saturation FiO2 Sodium Potassium Chloride Carbon Dioxide Anion Gap BUN Creatinine Est GFR ( Amer) Est GFR (Non-Af Amer) POC Glucose (mg/dL) 36 L* 226 H Random Glucose Hemoglobin A1c Calcium Total Bilirubin AST ALT Alkaline Phosphatase Troponin I Total Protein Albumin Globulin Albumin/Globulin Ratio Hepatitis A IgM Ab Negative Hep Bs Antigen Negative Hep B Core IgM Ab Negative Hepatitis C Antibody Negative 08/10/16 08/10/16 08/10/16 00:30 04:20 05:15 WBC RBC Hgb Hct MCV MCH MCHC RDW Plt Count MPV Neut % (Auto) Lymph % (Auto) Fisher % (Auto) Eos % (Auto) Baso % (Auto) Neut # Lymph # Fisher # Eos # Baso # APTT 21.3 L pCO2 pO2 HCO3 ABG pH ABG Total CO2 ABG O2 Saturation ABG O2 Content ABG Base Excess ABG Hemoglobin ABG Carboxyhemoglobin POC ABG HHb (Measured) ABG Methemoglobin ABG O2 Capacity Zac Test A-a O2 Difference Hgb O2 Saturation FiO2 Sodium Potassium Chloride Carbon Dioxide Anion Gap BUN Creatinine Est GFR ( Amer) Est GFR (Non-Af Amer) POC Glucose (mg/dL) Random Glucose Hemoglobin A1c Calcium Total Bilirubin AST ALT Alkaline Phosphatase Troponin I < 0.0120 < 0.0120 Total Protein Albumin Globulin Albumin/Globulin Ratio Hepatitis A IgM Ab Hep Bs Antigen Hep B Core IgM Ab Hepatitis C Antibody 08/10/16 08/10/16 08/10/16 05:15 05:15 05:15 WBC 4.6 L RBC 3.45 L Hgb 10.7 L Hct 32.0 L MCV 92.8 MCH 30.9 MCHC 33.4 RDW 15.7 H Plt Count 144 MPV 8.4 Neut % (Auto) 69.9 Lymph % (Auto) 19.7 L Fisher % (Auto) 5.8 Eos % (Auto) 3.9 Baso % (Auto) 0.7 Neut # 3.2 Lymph # 0.9 L Fisher # 0.3 Eos # 0.2 Baso # 0.0 APTT pCO2 pO2 HCO3 ABG pH ABG Total CO2 ABG O2 Saturation ABG O2 Content ABG Base Excess ABG Hemoglobin ABG Carboxyhemoglobin POC ABG HHb (Measured) ABG Methemoglobin ABG O2 Capacity Zac Test A-a O2 Difference Hgb O2 Saturation FiO2 Sodium 137 Potassium 4.0 Chloride 96 L Carbon Dioxide 29 Anion Gap 16 BUN 35 H Creatinine 3.7 H Est GFR ( Amer) 15 Est GFR (Non-Af Amer) 12 POC Glucose (mg/dL) Random Glucose 101 Hemoglobin A1c 5.9 Calcium 8.6 Total Bilirubin 0.6 AST 269 H D ALT 145 H D Alkaline Phosphatase 141 H D Troponin I Total Protein 6.9 Albumin 4.2 Globulin 2.8 Albumin/Globulin Ratio 1.5 Hepatitis A IgM Ab Hep Bs Antigen Hep B Core IgM Ab Hepatitis C Antibody 08/10/16 08/10/16 08/10/16 05:15 05:24 05:54 WBC RBC Hgb Hct MCV MCH MCHC RDW Plt Count MPV Neut % (Auto) Lymph % (Auto) Fisher % (Auto) Eos % (Auto) Baso % (Auto) Neut # Lymph # Fisher # Eos # Baso # APTT pCO2 53 H pO2 68 L HCO3 29.6 H ABG pH 7.39 ABG Total CO2 33.7 H ABG O2 Saturation 96.5 ABG O2 Content 14.0 L ABG Base Excess 6.0 H ABG Hemoglobin 10.6 L ABG Carboxyhemoglobin 1.2 POC ABG HHb (Measured) 3.4 ABG Methemoglobin 1.5 ABG O2 Capacity 14.5 L Zac Test Yes A-a O2 Difference 15.0 Hgb O2 Saturation 93.9 L FiO2 21.0 Sodium Potassium Chloride Carbon Dioxide Anion Gap BUN Creatinine Est GFR ( Amer) Est GFR (Non-Af Amer) POC Glucose (mg/dL) 105 Random Glucose Hemoglobin A1c Calcium Total Bilirubin AST ALT Alkaline Phosphatase Troponin I < 0.0120 Total Protein Albumin Globulin Albumin/Globulin Ratio Hepatitis A IgM Ab Hep Bs Antigen Hep B Core IgM Ab Hepatitis C Antibody 08/10/16 08/10/16 08/10/16 11:50 12:14 15:53 WBC RBC Hgb Hct MCV MCH MCHC RDW Plt Count MPV Neut % (Auto) Lymph % (Auto) Fisher % (Auto) Eos % (Auto) Baso % (Auto) Neut # Lymph # Fisher # Eos # Baso # APTT pCO2 pO2 HCO3 ABG pH ABG Total CO2 ABG O2 Saturation ABG O2 Content ABG Base Excess ABG Hemoglobin ABG Carboxyhemoglobin POC ABG HHb (Measured) ABG Methemoglobin ABG O2 Capacity Zac Test A-a O2 Difference Hgb O2 Saturation FiO2 Sodium 136 Potassium 4.6 Chloride 96 L Carbon Dioxide 28 Anion Gap 17 BUN 38 H Creatinine 4.0 H Est GFR ( Amer) 13 Est GFR (Non-Af Amer) 11 POC Glucose (mg/dL) 247 H 340 H Random Glucose 186 H Hemoglobin A1c Calcium 8.1 L Total Bilirubin 0.6 AST 189 H D ALT 162 H Alkaline Phosphatase 150 H Troponin I Total Protein 6.9 Albumin 4.1 Globulin 2.8 Albumin/Globulin Ratio 1.5 Hepatitis A IgM Ab Hep Bs Antigen Hep B Core IgM Ab Hepatitis C Antibody 08/10/16 21:23 WBC RBC Hgb Hct MCV MCH MCHC RDW Plt Count MPV Neut % (Auto) Lymph % (Auto) Fisher % (Auto) Eos % (Auto) Baso % (Auto) Neut # Lymph # Fisher # Eos # Baso # APTT pCO2 pO2 HCO3 ABG pH ABG Total CO2 ABG O2 Saturation ABG O2 Content ABG Base Excess ABG Hemoglobin ABG Carboxyhemoglobin POC ABG HHb (Measured) ABG Methemoglobin ABG O2 Capacity Zac Test A-a O2 Difference Hgb O2 Saturation FiO2 Sodium Potassium Chloride Carbon Dioxide Anion Gap BUN Creatinine Est GFR ( Amer) Est GFR (Non-Af Amer) POC Glucose (mg/dL) 104 Random Glucose Hemoglobin A1c Calcium Total Bilirubin AST ALT Alkaline Phosphatase Troponin I Total Protein Albumin Globulin Albumin/Globulin Ratio Hepatitis A IgM Ab Hep Bs Antigen Hep B Core IgM Ab Hepatitis C Antibody - EKG Data EKG Interpreted by: Other EKG shows normal: Sinus rhythm Rate: Normal - Imaging and Cardiology Chest x-ray Status: Report reviewed by me Assessment & Plan (1) Chest pain Status: Acute (2) Hepatitis Status: Acute (3) HTN (hypertension) Status: Chronic (4) Hyperkalemia Status: Acute (5) Diabetes mellitus Status: Chronic (6) ESRD (end stage renal disease) on dialysis Status: Chronic - Assessment and Plan (Free Text) Plan: 1. likley muscular pain meds trops\EKG 2. resume meds RISS renal diet 3. u\s abdomen- hep B\C negative moitor LFTS 4. k- HD. Decision To Admit - Pt Status Changed To: Hospital Disposition Of: Inpatient - Admit Certification Admit to Inpatient:: After my assessment, the patient will require hospitalization for at least two midnights. This is because of the severity of symptoms shown, intensity of services needed, and/or the medical risk in this patient being treated as an outpatient. - . Bed Request Type: Telemetry Admitting Physician: Katy Reyes
[2016-08-11] MEDS: Insulin Lispro (humaLOG) 100 Units/ml Inj SC SCH ×4 (06:55→22:35)
[2016-08-11] MEDS ORDERED: Dextrose 50% SYRINGE Inj (50 ml) ONE (08:26)
[2016-08-11] MEDS ORDERED: Dextrose 50% SYRINGE Inj (50 ml) IVP ONE (08:34)
--- NOTE | 2016-08-11 09:03 | PCM.RRTMUL ---
[employer] Nurse Assessment - Situation [employer] Responder Arrival Time:: 08:31 Location:: telemetry 4 cassatt - IV IV Inserted during [employer]?: No - Respiratory Oxygen Delivery Method:: Room Air Was the Patient Ventilated with Bag/Mask 100% O2?: No Secretions Suctioned?: No Was the Patient Intubated?: No Was the Patient Placed on a Ventilator?: No - Vital Signs Blood Pressure:: 125/70 Pulse Rate:: 86 Respiratory Rate:: 18 Temperature:: 98.2 F - Jevon Coma Scale Coma Scale Eye Opening:: Spontaneous Coma Scale Motor:: Obeys Commands Movement Coma Scale Verbal:: Oriented Coma Scale Total:: 15 I.Reason for [employer] - A) Acute Change in Patient: Subjective: [employer] was called today in the morning for a 71 yo , f, PMhx/o DM, HTN, ESRD on HD admitted for chest pain, who was NPO last night for US study today in the morning. When patient was brought back to her bed inside her room , nurse noticed that patient was unresponsive and Blood sugar was 37 mg/dl. On responder arrival patient was lethargic, unresponsive to verbal stimuli, and mild responsive to sternal rub. Nurse denies patient's symptoms before the event like chest pain, SOB, N, V, D, dizziness. las hemodyalisis on tuesday Initial VS: BP: 151/53 HR: 105 b/min RR: 16 resp / min. PE GA: lethargic, unresponsive to verbal stimuli, and mild responsive to sternal rub. CV: RRR. + S1, S2, No M/R/G. Chest: CTA, no rhonchi, wheezing, rales Abd: Soft, No TD, no guarding, no rebound TD Neuro: Lethargic, unresponsive to verbal stimuli, and mild responsive to sternal rub. unable to detect motor deficit now. no facial droop Impression: AMS associated to Hypoglycemia Plan: D50 % IV x 1 stat After D50 % infusion patient awake, alert, oriented, speech fluid requesting breakfast and states that had hypoglycemia. Denies chest pain, SOB, palpitation. Accucheck post D50 %: 225mg/dl End [employer] - A) Initial Vital Signs: Blood Pressure: 151/53 Pulse Rate: 105 Respiratory Rate: 16 - B) Neurological Status (Select all that apply): Lethargic - C) Respiratory Oxygen Delivery Method: Room Air - Head Head Exam: ATRAUMATIC, NORMOCEPHALIC - Cardiovascular Exam Cardiovascular Exam: REGULAR RHYTHM, +S1, +S2. absent: Murmur - GI/Abdominal Exam GI & Abdominal Exam: Soft, Normal Bowel Sounds. absent: Tenderness - Extremities Exam Extremities Exam: Normal Inspection
[2016-08-11] MEDS: Omega-3-Acid Ethyl Esters 1 GM Cap PO SCH (10:24)
[2016-08-11] MEDS ORDERED: Epoetin Alfa 20000 UNIT/ML Inj IV SCH (11:25)
--- NOTE | 2016-08-11 11:31 | CP.PCM.PN ---
Subjective - Date & Time of Evaluation Date of Evaluation: 08/11/16 Time of Evaluation: 11:29 - Subjective Subjective: Patient sitting in bed appeared to be comfortable Patient complaining of low back pain chronic in nature CT scan of the lumbosacral spine noted , see the report No chest pain no shortness of breath Objective - Vital Signs/Intake and Output Vital Signs (last 24 hours): Temp Pulse Resp BP Pulse Ox 98.2 F 105 H 16 151/53 H 98 08/11/16 10:30 08/11/16 10:30 08/11/16 10:30 08/11/16 10:30 08/11/16 08:02 Intake and Output: 08/11/16 08/11/16 06:59 18:59 Intake Total 600 Balance 600 - Medications Medications: Current Medications Amlodipine Besylate (Norvasc) 10 mg PO DAILY [facility] Last Admin: 08/11/16 10:25 Dose: 10 mg Aspirin (Aspirin Chewable) 81 mg PO DAILY [facility] Last Admin: 08/11/16 10:23 Dose: 81 mg Docusate Sodium (Colace) 100 mg PO BID [facility] Last Admin: 08/11/16 10:22 Dose: 100 mg Epoetin Suraj (Procrit) 8,000 unit IV F [facility] Famotidine (Pepcid) 20 mg PO DAILY [facility] Last Admin: 08/11/16 10:23 Dose: 20 mg Ferrous Sulfate (Feosol) 325 mg PO DAILY [facility] Last Admin: 08/11/16 10:25 Dose: 325 mg Folic Acid (Folic Acid) 1 mg PO DAILY [facility] Last Admin: 08/11/16 10:25 Dose: 1 mg Gabapentin (Neurontin) 300 mg PO TID [facility] Last Admin: 08/11/16 10:24 Dose: 300 mg Heparin Sodium (Porcine) (Heparin) 5,000 units SC Q8 [facility] PRN Reason: Protocol Last Admin: 08/11/16 01:12 Dose: 5,000 units Insulin Human Lispro (Humalog) 0 units SC ACHS [facility] PRN Reason: Protocol Last Admin: 08/11/16 06:55 Dose: 2 u Isosorbide Mononitrate (Imdur) 30 mg PO DAILY [facility] Last Admin: 08/11/16 10:25 Dose: 30 mg Labetalol HCl (Trandate) 100 mg PO BID [facility] Last Admin: 08/11/16 10:23 Dose: 100 mg Lisinopril (Zestril) 10 mg PO DAILY [facility] Last Admin: 08/11/16 10:25 Dose: 10 mg Idvjz-3-Oqqi Ethyl Esters (Lovaza) 1 gm PO DAILY [facility] Last Admin: 08/11/16 10:24 Dose: 1 gm Oxycodone/Acetaminophen (Percocet 5/325 Mg Tab) 1 tab PO DAILY PRN PRN Reason: Pain, Mild (1-3) Stop: 08/13/16 09:01 Last Admin: 08/10/16 21:00 Dose: 1 tab Repaglinide (Prandin) 0.5 mg PO DAILY [facility] Last Admin: 08/11/16 10:23 Dose: 0.5 mg Sevelamer HCl (Renagel) 2,400 mg PO TID [facility] Last Admin: 08/11/16 10:24 Dose: 2,400 mg Sucralfate (Carafate Tab) 1 gm PO TID [facility] Last Admin: 08/10/16 16:52 Dose: 1 gm Temazepam (Restoril) 30 mg PO HS [facility] Last Admin: 08/10/16 22:11 Dose: 30 mg - Labs Labs: 08/10/16 05:15 08/10/16 11:50 PT 10.5 SECONDS (9.6-11.2) 08/09/16 14:55 INR 1.01 (0.92-1.08) 08/09/16 14:55 APTT 21.3 SECONDS (23.3-32.5) L 08/10/16 05:15 - Constitutional Appears: No Acute Distress - ENT Exam ENT Exam: Mucous Membranes Moist - Respiratory Exam Respiratory Exam: NORMAL BREATHING PATTERN - Cardiovascular Exam Cardiovascular Exam: REGULAR RHYTHM. absent: Rubs - GI/Abdominal Exam GI & Abdominal Exam: Normal Bowel Sounds - Extremities Exam Extremities Exam: absent: Calf Tenderness - Back Exam Back Exam: absent: CVA tenderness (L), CVA tenderness (R) - Neurological Exam Neurological Exam: Alert Assessment and Plan (1) ESRD on dialysis Assessment & Plan: End stage renal disease patient receiving hemodialysis right now tolerating well ultrafiltration about 2000 mL as tolerated Serum bath 2 mEq No back pain patient has CT scan of the lumbosacral spine as the primary team for follow-up and management Abnormal liver enzyme which a new finding she came was normal liver function test and became elevated. Patient has ultrasound of the abdomen also need hepatitis profile including B and C Status: Chronic (2) Low back pain Status: Chronic
--- NOTE | 2016-08-11 12:14 | US ---
HISTORY: elevated lft COMPARISON: 11/30/2015. TECHNIQUE: Sonographic evaluation of the abdomen. FINDINGS: LIVER: Measures cm. Normal echogenicity of the liver parenchyma. No mass. No intrahepatic bile duct dilatation. GALLBLADDER: Absent. COMMON BILE DUCT: Measures 13 millimeters mm. No stones. No dilatation. PANCREAS: Unremarkable as visualized. No mass. 3 millimeter pancreatic duct. RIGHT KIDNEY: Measures cm. Normal echogenicity. No calculus, mass, or hydronephrosis. 1.2 centimeter right upper pole renal cyst. LEFT KIDNEY: Measures cm. Normal echogenicity. No calculus, mass, or hydronephrosis. SPLEEN: Normal in size and contour. No mass. AORTA: No aneurysmal dilatation. IVC: Unremarkable. OTHER FINDINGS: None. IMPRESSION: Dilated common bile duct which may be secondary to post cholecystectomy state, there is slight prominence of the pancreatic duct as well. No significant change since prior exam
[2016-08-11] MEDS: Oxycodone/Acetaminophen 5/325 mg Tab PO PRN (12:30)
[2016-08-11 14:50] LABS: ALB/GLOB RATIO 1.4 (1.0-2.1); BILIRUBIN,TOTAL 0.4 mg/dl (0.2-1.3); TOTAL PROTEIN 6.5 G/DL (6.3-8.2)
--- NOTE | 2016-08-11 22:44 | CP.PCM.PN ---
Subjective - Date & Time of Evaluation Date of Evaluation: 08/11/16 Time of Evaluation: 15:00 - Subjective Subjective: events noted, hypoglycemic episodic .feeling better. denies other complaints. u\s abdomen- mild CBD dialation, no acute pathology. suraj-FP- normal. LFTS-coming down you3r-5.9, on RISS,prandin Objective - Vital Signs/Intake and Output Vital Signs (last 24 hours): Temp Pulse Resp BP Pulse Ox 97.9 F 83 18 124/66 97 08/11/16 20:00 08/11/16 20:00 08/11/16 20:00 08/11/16 20:00 08/11/16 20:00 Intake and Output: 08/11/16 08/12/16 18:59 06:59 Intake Total 2440 Balance 2440 - Medications Medications: Current Medications Amlodipine Besylate (Norvasc) 10 mg PO DAILY [facility] Last Admin: 08/11/16 10:25 Dose: 10 mg Aspirin (Aspirin Chewable) 81 mg PO DAILY [facility] Last Admin: 08/11/16 10:23 Dose: 81 mg Docusate Sodium (Colace) 100 mg PO BID [facility] Last Admin: 08/11/16 17:08 Dose: 100 mg Epoetin Suraj (Procrit) 8,000 unit IV MWF [facility] Last Admin: 08/11/16 14:43 Dose: 8,000 unit Famotidine (Pepcid) 20 mg PO DAILY [facility] Last Admin: 08/11/16 10:23 Dose: 20 mg Ferrous Sulfate (Feosol) 325 mg PO DAILY [facility] Last Admin: 08/11/16 10:25 Dose: 325 mg Folic Acid (Folic Acid) 1 mg PO DAILY [facility] Last Admin: 08/11/16 10:25 Dose: 1 mg Gabapentin (Neurontin) 300 mg PO TID [facility] Last Admin: 08/11/16 17:08 Dose: 300 mg Heparin Sodium (Porcine) (Heparin) 5,000 units SC Q8 [facility] PRN Reason: Protocol Last Admin: 08/11/16 17:09 Dose: 5,000 units Insulin Human Lispro (Humalog) 0 units SC ACHS [facility] PRN Reason: Protocol Last Admin: 08/11/16 22:35 Dose: Not Given Isosorbide Mononitrate (Imdur) 30 mg PO DAILY [facility] Last Admin: 08/11/16 10:25 Dose: 30 mg Labetalol HCl (Trandate) 100 mg PO BID [facility] Last Admin: 08/11/16 17:09 Dose: Not Given Lisinopril (Zestril) 10 mg PO DAILY [facility] Last Admin: 08/11/16 10:25 Dose: 10 mg Tzqkx-2-Ydwr Ethyl Esters (Lovaza) 1 gm PO DAILY [facility] Last Admin: 08/11/16 10:24 Dose: 1 gm Oxycodone/Acetaminophen (Percocet 5/325 Mg Tab) 1 tab PO DAILY PRN PRN Reason: Pain, Mild (1-3) Stop: 08/13/16 09:01 Last Admin: 08/11/16 12:30 Dose: 1 tab Sevelamer HCl (Renagel) 2,400 mg PO TID [facility] Last Admin: 08/11/16 17:09 Dose: 2,400 mg Sitagliptin Phosphate (Januvia) 25 mg PO DAILY [facility] Sucralfate (Carafate Tab) 1 gm PO TID [facility] Last Admin: 08/11/16 17:08 Dose: 1 gm Temazepam (Restoril) 30 mg PO HS [facility] Last Admin: 08/11/16 22:37 Dose: 30 mg - Labs Labs: 08/10/16 05:15 08/10/16 11:50 PT 10.5 SECONDS (9.6-11.2) 08/09/16 14:55 INR 1.01 (0.92-1.08) 08/09/16 14:55 APTT 21.3 SECONDS (23.3-32.5) L 08/10/16 05:15 Assessment and Plan (1) Chest pain Status: Resolved (2) Hepatitis Status: Acute (3) HTN (hypertension) Status: Chronic (4) Hyperkalemia Status: Resolved (5) Diabetes mellitus Assessment & Plan: d\c prandin and coverage add januvia monitor BS Status: Chronic (6) ESRD (end stage renal disease) on dialysis Status: Chronic
[2016-08-12] MEDS: Oxycodone/Acetaminophen 5/325 mg Tab PO PRN (05:05)
[2016-08-12] MEDS: Insulin Lispro (humaLOG) 100 Units/ml Inj SC SCH (06:34)
[2016-08-12 07:22] LABS: ALB/GLOB RATIO 1.4 (1.0-2.1); BILIRUBIN,TOTAL 0.4 mg/dl (0.2-1.3); CALCIUM 8.6 mg/dL (8.4-10.2); TOTAL PROTEIN 6.7 G/DL (6.3-8.2)
[2016-08-12 08:21] VITALS: RESP 18
[2016-08-12] MEDS: Omega-3-Acid Ethyl Esters 1 GM Cap PO SCH (08:31)
--- NOTE | 2016-08-12 09:19 | CP.PCM.PN ---
Subjective - Date & Time of Evaluation Date of Evaluation: 08/12/16 Time of Evaluation: 09:17 - Subjective Subjective: Patient feeling good she completed hemodialysis yesterday again No significant changes Vital signs stable Chronic low back pain and related to radiculopathy perhaps Significant improvement in liver enzyme , near-normal Physical exam Vital sign noted in stable Chest clear Heart no rubs Abdomen soft Extremity no edema Impression and plan Continue hemodialysis as outpatient Tuesday Improving liver enzyme almost near normal No back pain need to chronic management and referral to pain management as outpatient patient stated that she has been seen primary care physician as outpatient Objective - Vital Signs/Intake and Output Vital Signs (last 24 hours): Temp Pulse Resp BP Pulse Ox 98.5 F 72 18 132/56 L 98 08/12/16 08:21 08/12/16 08:34 08/12/16 08:21 08/12/16 08:34 08/12/16 08:21 Intake and Output: 08/12/16 08/12/16 06:59 18:59 Intake Total 2440 Balance 2440 - Medications Medications: Current Medications Amlodipine Besylate (Norvasc) 10 mg PO DAILY [facility] Last Admin: 08/12/16 08:32 Dose: 10 mg Aspirin (Aspirin Chewable) 81 mg PO DAILY [facility] Last Admin: 08/12/16 08:29 Dose: 81 mg Docusate Sodium (Colace) 100 mg PO BID [facility] Last Admin: 08/12/16 08:29 Dose: 100 mg Epoetin Suraj (Procrit) 8,000 unit IV MWF [facility] Last Admin: 08/11/16 14:43 Dose: 8,000 unit Famotidine (Pepcid) 20 mg PO DAILY [facility] Last Admin: 08/12/16 08:33 Dose: 20 mg Ferrous Sulfate (Feosol) 325 mg PO DAILY [facility] Last Admin: 08/12/16 08:29 Dose: 325 mg Folic Acid (Folic Acid) 1 mg PO DAILY [facility] Last Admin: 08/12/16 08:30 Dose: 1 mg Gabapentin (Neurontin) 300 mg PO TID [facility] Last Admin: 08/12/16 08:32 Dose: 300 mg Heparin Sodium (Porcine) (Heparin) 5,000 units SC Q8 [facility] PRN Reason: Protocol Last Admin: 08/12/16 08:30 Dose: 5,000 units Insulin Human Lispro (Humalog) 0 units SC ACHS [facility] PRN Reason: Protocol Last Admin: 08/12/16 06:34 Dose: Not Given Isosorbide Mononitrate (Imdur) 30 mg PO DAILY [facility] Last Admin: 08/12/16 08:31 Dose: 30 mg Labetalol HCl (Trandate) 100 mg PO BID [facility] Last Admin: 08/12/16 08:33 Dose: 100 mg Lisinopril (Zestril) 10 mg PO DAILY [facility] Last Admin: 08/12/16 08:34 Dose: 10 mg Ugzhd-5-Mynx Ethyl Esters (Lovaza) 1 gm PO DAILY [facility] Last Admin: 08/12/16 08:31 Dose: 1 gm Oxycodone/Acetaminophen (Percocet 5/325 Mg Tab) 1 tab PO DAILY PRN PRN Reason: Pain, Mild (1-3) Stop: 08/13/16 09:01 Last Admin: 08/12/16 05:05 Dose: 1 tab Sevelamer HCl (Renagel) 2,400 mg PO TID [facility] Last Admin: 08/12/16 08:33 Dose: 2,400 mg Sitagliptin Phosphate (Januvia) 25 mg PO DAILY [facility] Last Admin: 08/12/16 08:31 Dose: 25 mg Sucralfate (Carafate Tab) 1 gm PO TID [facility] Last Admin: 08/12/16 08:29 Dose: 1 gm Temazepam (Restoril) 30 mg PO HS [facility] Last Admin: 08/11/16 22:37 Dose: 30 mg - Labs Labs: 08/10/16 05:15 08/12/16 06:30 PT 10.5 SECONDS (9.6-11.2) 08/09/16 14:55 INR 1.01 (0.92-1.08) 08/09/16 14:55 APTT 21.3 SECONDS (23.3-32.5) L 08/10/16 05:15 Assessment and Plan (1) ESRD on dialysis Status: Chronic (2) Low back pain Status: Chronic
[2016-08-12 12:31] VITALS: BP 131/57; PULSE 88; TEMP 97.9; O2SAT 99
--- NOTE | 2016-08-12 20:21 | CP.PCM.DIS ---
Provider - Provider Date of Admission: 08/09/16 16:20 Attending physician: Katy Reyes MD Time Spent in preparation of Discharge (in minutes): 30 Diagnosis - Discharge Diagnosis (1) Chest pain Status: Resolved (2) Hepatitis Status: Acute (3) HTN (hypertension) Status: Chronic (4) Hyperkalemia Status: Resolved (5) Diabetes mellitus Status: Chronic (6) ESRD (end stage renal disease) on dialysis Status: Chronic Hospital Course - Lab Results Lab Results: Most Recent Lab Values WBC 4.6 K/uL (4.8-10.8) L 08/10/16 05:15 RBC 3.45 Mil/uL (3.80-5.20) L 08/10/16 05:15 Hgb 10.7 g/dL (12.0-16.0) L 08/10/16 05:15 Hct 32.0 % (34.0-47.0) L 08/10/16 05:15 MCV 92.8 fl (81.0-99.0) 08/10/16 05:15 MCH 30.9 pg (27.0-31.0) 08/10/16 05:15 MCHC 33.4 g/dL (33.0-37.0) 08/10/16 05:15 RDW 15.7 % (11.5-14.5) H 08/10/16 05:15 Plt Count 144 K/uL (130-400) 08/10/16 05:15 MPV 8.4 fl (7.2-11.7) 08/10/16 05:15 Neut % (Auto) 69.9 % (50.0-75.0) 08/10/16 05:15 Lymph % (Auto) 19.7 % (20.0-40.0) L 08/10/16 05:15 Addison % (Auto) 5.8 % (0.0-10.0) 08/10/16 05:15 Eos % (Auto) 3.9 % (0.0-4.0) 08/10/16 05:15 Baso % (Auto) 0.7 % (0.0-2.0) 08/10/16 05:15 Neut # 3.2 K/uL (1.8-7.0) 08/10/16 05:15 Lymph # 0.9 K/uL (1.0-4.3) L 08/10/16 05:15 Addison # 0.3 K/uL (0.0-0.8) 08/10/16 05:15 Eos # 0.2 K/uL (0.0-0.7) 08/10/16 05:15 Baso # 0.0 K/uL (0.0-0.2) 08/10/16 05:15 PT 10.5 SECONDS (9.6-11.2) 08/09/16 14:55 INR 1.01 (0.92-1.08) 08/09/16 14:55 APTT 21.3 SECONDS (23.3-32.5) L 08/10/16 05:15 pCO2 53 mm/Hg (35-45) H 08/10/16 05:24 pO2 68 mm/Hg (80-100) L 08/10/16 05:24 HCO3 29.6 mmol/L (21-28) H 08/10/16 05:24 ABG pH 7.39 (7.35-7.45) 08/10/16 05:24 ABG Total CO2 33.7 mmol/L (22-28) H 08/10/16 05:24 ABG O2 Saturation 96.5 % (95-98) 08/10/16 05:24 ABG O2 Content 14.0 ML/dL (15-23) L 08/10/16 05:24 ABG Base Excess 6.0 mmol/L (-2.0-3.0) H 08/10/16 05:24 ABG Hemoglobin 10.6 g/dL (11.7-17.4) L 08/10/16 05:24 ABG Carboxyhemoglobin 1.2 % (0.5-1.5) 08/10/16 05:24 POC ABG HHb (Measured) 3.4 % (0.0-5.0) 08/10/16 05:24 ABG Methemoglobin 1.5 % (0.0-3.0) 08/10/16 05:24 ABG O2 Capacity 14.5 mL/dL (16-24) L 08/10/16 05:24 Zac Test Yes 08/10/16 05:24 A-a O2 Difference 15.0 mm/Hg 08/10/16 05:24 Hgb O2 Saturation 93.9 % (95.0-98.0) L 08/10/16 05:24 FiO2 21.0 % 08/10/16 05:24 Sodium 138 mmol/l (132-148) 08/12/16 06:30 Potassium 4.0 MMOL/L (3.6-5.0) 08/12/16 06:30 Chloride 101 mmol/L (98-107) 08/12/16 06:30 Carbon Dioxide 25 mmol/L (22-30) 08/12/16 06:30 Anion Gap 16 (10-20) 08/12/16 06:30 BUN 28 mg/dl (7-17) H 08/12/16 06:30 Creatinine 3.8 mg/dL (0.7-1.2) H 08/12/16 06:30 Est GFR ( Amer) 14 08/12/16 06:30 Est GFR (Non-Af Amer) 12 08/12/16 06:30 POC Glucose (mg/dL) 203 mg/dL (65-110) H 08/12/16 11:54 Random Glucose 104 mg/dL (65-105) 08/12/16 06:30 Hemoglobin A1c 5.9 % (4.2-6.5) 08/11/16 07:29 Calcium 8.6 mg/dL (8.4-10.2) 08/12/16 06:30 Total Bilirubin 0.4 mg/dl (0.2-1.3) 08/12/16 06:30 Direct Bilirubin 0.4 mg/ml (0.0-0.4) 08/11/16 14:39 AST 54 U/L (14-36) H D 08/12/16 06:30 ALT 94 U/L (9-52) H 08/12/16 06:30 Alkaline Phosphatase 122 U/L (38-126) 08/12/16 06:30 Troponin I < 0.0120 ng/mL (0.00-0.120) 08/10/16 23:45 Total Protein 6.7 G/DL (6.3-8.2) 08/12/16 06:30 Albumin 3.9 g/dL (3.5-5.0) 08/12/16 06:30 Globulin 2.8 gm/dL (2.2-3.9) 08/12/16 06:30 Albumin/Globulin Ratio 1.4 (1.0-2.1) 08/12/16 06:30 Alpha Fetoprotein 1.2 IU/mL (0.0-7.22) 08/11/16 07:29 Hepatitis A IgM Ab Negative (NEGATIVE) 08/10/16 00:30 Hep Bs Antigen Negative (NEGATIVE) 08/10/16 00:30 Hep Bs Antibody Positive (NEGATIVE) 08/10/16 04:00 Hep B Core IgM Ab Negative (NEGATIVE) 08/10/16 00:30 Hepatitis C Antibody Negative (NEGATIVE) 08/10/16 04:00 Discharge Exam - Head Exam Head Exam: ATRAUMATIC, NORMOCEPHALIC Discharge Plan - Discharge Medications Prescriptions: SITagliptin [Januvia] 25 mg PO DAILY #30 tab - Follow Up Plan Condition: STABLE Disposition: HOME/ ROUTINE Instructions: Chest Pain (DC), Hyperkalemia (DC) Additional Instructions: patient cleared for discharge to Home today by and pt. will f/u with PMD and , dialysis reinstated by SW, MWF Rx for meds provided Referrals: Jm Ta MD [Staff Provider] - Jhoan Anthony MD [Family Provider] -
[2016-08-13] MEDS ORDERED: Epoetin Alfa 20000 UNIT/ML Inj IV SCH (09:00)
== END 2016-08-12 13:05 | disposition home or self-care (01) | DRG 640 ==
LOC: H.ER 14:05 → H.ERHOLD 16:20 → H.TEL 21:22
PROVIDERS: ADMIT Internal Medicine; ATTEND Internal Medicine
DX: E87.5 Hyperkalemia (principal); N18.6 End stage renal disease; I12.0 Hypertensive chronic kidney disease with stage 5 chronic kidney disease or end stage renal disease; E11.22 Type 2 diabetes mellitus with diabetic chronic kidney disease; K75.9 Inflammatory liver disease, unspecified; M54.10 Radiculopathy, site unspecified; R07.89 Other chest pain; I25.2 Old myocardial infarction; E11.649 Type 2 diabetes mellitus with hypoglycemia without coma; E78.00 Pure hypercholesterolemia, unspecified; I25.10 Atherosclerotic heart disease of native coronary artery without angina pectoris; Z95.5 Presence of coronary angioplasty implant and graft; Z99.2 Dependence on renal dialysis; M47.9 Spondylosis, unspecified; G89.29 Other chronic pain; R74.8 Abnormal levels of other serum enzymes

== ENCOUNTER 2017-05-19 16:52 | Observation (INO) | payer OTHER ==
[2017-05-19 16:52] VITALS: BMI 23.0
[2017-05-19 18:34] LABS: BASO % 0.2 % (0.0-2.0); EOS # 0.2 K/uL (0.0-0.7); EOS % 3.2 % (0.0-4.0); HEMOGLOBIN 9.2 g/dL (12.0-16.0); LYMPH # 0.7 K/uL (1.0-4.3); LYMPH % 12.2 % (20.0-40.0); MEAN CELL VOLUME 89.9 fl (81.0-99.0); MEAN CORPUSCULAR HGB CONC 33.4 g/dL (33.0-37.0); MEAN PLATELET VOLUME 8.7 fl (7.2-11.7); MONO # 0.4 K/uL (0.0-0.8); MONO % 6.6 % (0.0-10.0); NEUT # 4.7 K/uL (1.8-7.0); NEUT % 77.8 % (50.0-75.0); RBC 3.05 Mil/uL (3.80-5.20); WHITE BLOOD COUNT 6.1 K/uL (4.8-10.8)
[2017-05-19 18:40] LABS: ALB/GLOB RATIO 1.3 (1.0-2.1); ALBUMIN 4.3 g/dL (3.5-5.0); CALCIUM 9.3 mg/dL (8.4-10.2)
[2017-05-19 18:58] LABS: TROPONIN I 0.199 ng/mL (0.00-0.120)
--- NOTE | 2017-05-19 19:35 | CT ---
EXAM: CT Head Without Intravenous Contrast EXAM DATE/TIME: 05/19/2017 6:13 PM CLINICAL HISTORY: 72 years old, female; Signs and symptoms; Altered mental status/memory loss; Other: Medical eval; Additional info: AMS TECHNIQUE: Axial computed tomography images of the head/brain without intravenous contrast. All CT scans at this facility use one or more dose reduction techniques, viz.: automated exposure control; ma/kV adjustment per patient size (including targeted exams where dose is matched to indication; i.e. head); or iterative reconstruction technique. Coronal and sagittal reformatted images were created and reviewed. COMPARISON: CT - HEAD W/O CONTRAST 2015-09-09 15:42 FINDINGS: Brain: There is mild prominence of sulci, gyri and ventricles. There is no midline shift. There is a cavum septum pellucida. There is patchy decrease attenuation in periventricular white matter. There are basal ganglia calcifications bilaterally. There is an old left basal ganglia lacunar infarct. There is increased conspicuity of a lacunar infarct in the anterior limb of the left internal capsule. There is a small age-indeterminate lacunar infarct in the right basal ganglia. There are no intra-axial or extra-axial mass lesions or areas of hemorrhage. There are no abnormal fluid collections. Wise-white differentiation is maintained. Ventricles: See above Bones: Cranial vault is intact. Soft tissues: unremarkable Sinuses: There is left ethmoid sinus disease Ears and mastoids: Middle ears and mastoids are unremarkable.There is streak artifact from a hearing aids. Orbits: Orbital contents are unremarkable. IMPRESSION: Atrophy and small vessel disease, no bleed; age indeterminate lacunar infarct right basal ganglia; old left basal ganglia region lacunar infarcts
--- NOTE | 2017-05-19 19:49 | ED PDOC ---
HPI: General Adult Time Seen by Provider: 05/19/17 17:50 Chief Complaint (Nursing): Weakness/Neurological Deficit History Per: Patient Additional Complaint(s): Pt. presents with son and states since yesterday they've noticed pt. has developed auditory and visual hallucinations. States that they've also noticed pt. has been increasingly more somnolent since yesterday. Furthermore 2 weeks ago pt. was admitted into [facility] as she lost consciousness and was "shaking." Pt. stayed in the hospital for [address] of the head done and was also found to have elevated potassium levels. Today while at dialysis her candle molder informed the daughter and son that pt. was acting bizarre and seemed to be very sleepy. Also states that pt. was found to have pneumonia during her hospital stay in [facility] Currently c/o nasal congestion with facial pain, gradual onset bitemporal headache which began today. Denies fever, headache, abdominal pain, N/V/D, head injury, SI/HI, chest pain, SOB.. Pt. describes hallucinations as if her son and daughter are talking even though they are not present. Pt.'s son also states that she admits to seeing 2 children running in the house but as per son pt. is not around any children. Past Medical History Reviewed: Historical Data, Nursing Documentation, Vital Signs Vital Signs: Last Vital Signs Temp 97.9 F 05/19/17 19:45 Pulse 93 H 05/19/17 19:53 Resp 16 05/19/17 19:45 BP 152/78 H 05/19/17 19:45 Pulse Ox 99 05/19/17 19:53 - Medical History PMH: Arthritis, CAD, Depression, Diabetes (type II), HTN, Hypercholesterolemia, Pneumonia, End Stage Renal Disease, Chronic Kidney Disease (HD M/W/F) Denies: CHF, COPD, HIV, Hypothyroidism, Rheumatoid Arthritis - Surgical History Surgical History: Appendectomy, Cholecystectomy, Coronary Stent - Family History Family History: States: No Known Family Hx - Home Medications Home Medications: Ambulatory Orders Medication Instructions Recorded Acetaminophen [Tylenol 325mg tab] 325 mg PO BID 08/09/16 Acetaminophen/Cod NO 4 1 tab PO Q8 PRN 08/09/16 [Tylenol/Cod 300 mg-60 mg] Aspirin 81 mg PO DAILY 08/09/16 Clopidogrel [Plavix] 75 mg PO DAILY 08/09/16 Famotidine [Pepcid] 20 mg PO DAILY 08/09/16 Ferrous Sulfate [Feosol] 325 mg PO DAILY 08/09/16 Folic Acid 1 mg PO DAILY 08/09/16 Gabapentin [Neurontin] 300 mg PO TID 08/09/16 Isosorbide Dinitrate 30 mg PO DAILY 08/09/16 Isosorbide Mononitrate ER [Imdur 30 mg PO DAILY 08/09/16 ER] Labetalol [Trandate] 100 mg PO DAILY 08/09/16 Lisinopril [Zestril] 10 mg PO DAILY 08/09/16 [id number] Ethyl Esters 1 GM 1 gm PO DAILY 08/09/16 [Lovaza] Sevelamer Carbonate [Renvela] 2,400 mg PO TID 08/09/16 Sucralfate [Carafate] 1 gm PO TID 08/09/16 Temazepam [Restoril] 30 mg PO HS 08/09/16 amLODIPine [Norvasc] 10 mg PO DAILY 08/09/16 Epoetin Suraj [Procrit] 8,000 unit IV MWF ml 08/12/16 SITagliptin [Januvia] 25 mg PO DAILY #30 tab 08/12/16 - Allergies Allergies/Adverse Reactions: Allergies Allergy/AdvReac Type Severity Reaction Status Date / Time No Known Allergies Allergy Verified 06/13/16 15:16 Review of Systems ROS Statement: Except As Marked, All Systems Reviewed And Found Negative ENT: Positive for: Nose Congestion Neurological: Positive for: Headache Physical Exam - Reviewed Nursing Documentation Reviewed: Yes Vital Signs Reviewed: Yes - Physical Exam Appears: Positive for: Well, Non-toxic, No Acute Distress Head Exam: Positive for: ATRAUMATIC, NORMAL INSPECTION, NORMOCEPHALIC Skin: Positive for: Normal Color, Warm. Negative for: Rash Eye Exam: Positive for: EOMI, Normal appearance, PERRL ENT: Positive for: TM Is/Are (WNL), Sinus Pain/Drainage (b/l malar tenderness), Nasal Congestion. Negative for: Pharyngeal Erythema, Tonsillar Exudate Neck: Positive for: Normal, Painless ROM Cardiovascular/Chest: Positive for: Regular Rate, Rhythm. Negative for: Tachycardia Respiratory: Positive for: Normal Breath Sounds. Negative for: Rales, Rhonchi, Wheezing, Respiratory Distress Gastrointestinal/Abdominal: Positive for: Normal Exam, Bowel Sounds, Soft. Negative for: Tenderness Back: Positive for: Normal Inspection Extremity: Positive for: Normal ROM Neurologic/Psych: Positive for: Alert, Oriented. Negative for: Aphasia, Facial Droop - Laboratory Results Result Diagrams: 05/19/17 18:01 05/19/17 18:01 - ECG ECG: Positive for: Interpreted By Me (and Dr. Rivera) ECG Rhythm: Positive for: Sinus Rhythm Rate: 93 O2 Sat by Pulse Oximetry: 99 - Radiology X-Ray: Interpreted by Me (CXR) X-Ray Interpretation: No Acute Disease - Progress ED Course And Treament: Case d/w Dr. Rivera who agrees with care. Labs ordered. CT head w/o contrast ordered. 1939 CT head w/o contrast: Atrophy and small vessel disease, no bleed; age indeterminate lacunar infarct right basal ganglia; old left basal ganglia region lacunar infarcts ASA 324mg PO chew. 2015 Case d/w Dr. Soria who recommends observation. Case d/w ASHOK Browne, and arrangements made for 23 hour telemetry observation. Disposition - Clinical Impression Clinical Impression: Altered mental status, Elevated troponin - Patient ED Disposition Is Patient to be Admitted: Yes - Disposition Disposition Time: 20:15 Condition: STABLE Forms: [employer] ([place])
[2017-05-20] MEDS: Insulin Regular 100 units/ml SC SCH ×5 (00:34→22:00)
[2017-05-20 01:09] LABS: SQUAMOUS EPITHIAL 10 /hpf (0-5); URINE AMORPHOUS SEDIMENT RARE /ul (<OCC); URINE BACTERIA MOD (<OCC); URINE BILIRUBIN NEGATIVE (NEGATIVE); URINE BLOOD SMALL (NEGATIVE); URINE CLARITY TURBID (Clear); URINE COLOR AMBER (YELLOW); URINE GLUCOSE (UA) NEG (Normal); URINE LEUKOCYTE ESTERASE LARGE Leu/uL (Negative); URINE PROTEIN 100 mg/dL (NEGATIVE); URINE UROBILINOGEN 0.2-1.0 mg/dL (0.2-1.0)
[2017-05-20 06:33] LABS: BASO % 0.5 % (0.0-2.0); EOS # 0.2 K/uL (0.0-0.7); EOS % 4.1 % (0.0-4.0); HEMOGLOBIN 8.6 g/dL (12.0-16.0); LYMPH # 1.5 K/uL (1.0-4.3); LYMPH % 25.8 % (20.0-40.0); MEAN CELL VOLUME 89.8 fl (81.0-99.0); MEAN CORPUSCULAR HEMOGLOBIN 30.3 pg (27.0-31.0); MEAN CORPUSCULAR HGB CONC 33.7 g/dL (33.0-37.0); MEAN PLATELET VOLUME 8.6 fl (7.2-11.7); MONO # 0.7 K/uL (0.0-0.8); MONO % 11.4 % (0.0-10.0); NEUT # 3.5 K/uL (1.8-7.0); NEUT % 58.2 % (50.0-75.0); NRBC % 0.1 % (0.0-0.0); RBC 2.85 Mil/uL (3.80-5.20)
[2017-05-20 06:41] LABS: ALB/GLOB RATIO 1.3 (1.0-2.1); ALBUMIN 3.7 g/dL (3.5-5.0); ALT/SGPT 45 U/L (9-52); AST/SGOT 34 U/L (14-36); BLOOD UREA NITROGEN 51 mg/dl (7-17); CALCIUM 9.2 mg/dL (8.4-10.2); GFR AFRICAN-AMERICAN 13; GFR NON-AFRICAN AMERICAN 11
[2017-05-20] MEDS ORDERED: Patient's Own Med (Oxycodone Hcl/Acetaminophen [Percocet 10-325 Mg Tablet] 1 TAB) PO PRN (06:50)
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
[2017-05-20] MEDS: Lidocaine/Prilocaine CREAM 5GM TP SCH ×2 (08:25→16:26)
[2017-05-20] MEDS ORDERED: MENTH TOP SCH (09:00)
[2017-05-20] MEDS ORDERED: CICLOPIROX TOP SCH (09:00)
[2017-05-20] MEDS ORDERED: CAMPH TOP SCH (09:00)
[2017-05-20] MEDS ORDERED: [UNRECOGNIZED DRUG - OTHER] TOP SCH (09:00)
[2017-05-20] MEDS ORDERED: APPL TOP SCH (09:00)
[2017-05-20] MEDS ORDERED: EUC TOP SCH (09:00)
[2017-05-20] MEDS ORDERED: DICLOFENAC SODIUM APPL TOP SCH (09:00)
--- NOTE | 2017-05-20 10:02 | RAD ---
HISTORY: clearance COMPARISON: Comparison chest 08/09/2016 FINDINGS: LUNGS: Minor right basilar atelectasis or scarring. PLEURA: No significant pleural effusion identified, no pneumothorax apparent. CARDIOVASCULAR: Heart appears mildly enlarged. Apparent coronary artery calcifications. OSSEOUS STRUCTURES: Minor multilevel degenerative spondylosis of the thoracic spine VISUALIZED UPPER ABDOMEN: Normal. OTHER FINDINGS: None. IMPRESSION: Minor right basilar atelectasis or scarring.
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
[2017-05-20 11:06] LABS: IRON 118 ug/dL (37-170)
[2017-05-20 11:16] LABS: % IRON SATURATION 47 % (20-55); TOTAL IRON BINDING CAPACITY 253 ug/dL (250-450)
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
[2017-05-20] MEDS ORDERED: Epoetin Alfa 20000 UNIT/ML Inj IV ONE (13:07)
--- NOTE | 2017-05-20 13:23 | CARD ---
APPROVED REPORT EKG Measurement Heart [id number] <Conclusion> Normal sinus rhythm Right bundle branch block Left anterior fascicular block Bifascicular block Abnormal ECG
--- NOTE | 2017-05-20 14:21 | CP.PCM.CON ---
History of Present Illness - History of Present Illness History of Present Illness: Psychiatry consult called for AMS and hallucinations CC: "My daughter told me I wasn't make sense before, but I'm okay now." HPI: 72 yo female w/ PMH of HTN, ESRD on HD, DM, no significant past psychiatric history, presented w/ AMS and hallucinations in the context of missing dialysis, having an active UTI and taking narcotic pain medication. Patient now has improved mental status, is A + O x 3, no current hallucinations/ paranoia, no depression/anxiety. No SI/HI. No other acute psychiatric complaints. PPHx: Patient denies any significant psychiatric history PMHx: HTN, ESRN on HD, DM, current UTI ALL: NKDA SHx: From [place], lives w/ her daughter, no drugs/etoh. MSE: A + O x 3, calm, cooperative, no acute distress, speech normal, mood/affect - neutral, thought process- linear/coherent, thought content- no delusions, no AH/VH/SI/HI, fair I/J Impression: 72 yo female w/ PMH of HTN, ESRD on HD, DM, presented w/ acute episode of AMS and brief psychosis in the context of missing dialysis, taking narcotic medication and having a UTI. Patient has improved with treatment of UTI and dialysis treatment. -No acute psychiatric intervention or medications indicated at this time -Would recommend to hold narcotic medication at this time if possible Past Patient History - Past Medical History & Family History Past Medical History?: Yes - Past Social History Smoking Status: Never Smoked - CARDIAC Hx Cardiac Disorders: Yes - PULMONARY Hx Chronic Obstructive Pulmonary Disease (COPD): No Hx Pneumonia: Yes - NEUROLOGICAL HX Cerebrovascular Accident: No - HEENT Hx HEENT Problems: No - RENAL Hx Chronic Kidney Disease: Yes (HD M/W/F) - ENDOCRINE/METABOLIC Hx Endocrine Disorders: Yes - HEMATOLOGICAL/ONCOLOGICAL Hx Human Immunodeficiency Virus (HIV): No - INTEGUMENTARY Hx Dermatological Problems: No - MUSCULOSKELETAL/RHEUMATOLOGICAL Hx Musculoskeletal Disorders: Yes - GASTROINTESTINAL Hx Gastrointestinal Disorders: No - GENITOURINARY/GYNECOLOGICAL Hx Genitourinary Disorders: No - PSYCHIATRIC Hx Substance Use: No - SURGICAL HISTORY Hx Appendectomy: Yes Hx Cholecystectomy: Yes Hx Coronary Stent: Yes - ANESTHESIA Hx Anesthesia: Yes Hx Anesthesia Reactions: No Hx Malignant Hyperthermia: No Meds Allergies/Adverse Reactions: Allergies Allergy/AdvReac Type Severity Reaction Status Date / Time No Known Allergies Allergy Verified 06/13/16 15:16 - Medications Medications: Current Medications Amlodipine Besylate (Norvasc) 10 mg PO DAILY [facility] Last Admin: 05/20/17 08:26 Dose: Not Given Aspirin (Aspirin Chewable) 81 mg PO DAILY [facility] Last Admin: 05/20/17 08:24 Dose: 81 mg Ferrous Sulfate (Feosol) 325 mg PO DAILY [facility] Last Admin: 05/20/17 08:23 Dose: 325 mg Gabapentin (Neurontin) 300 mg PO DAILY [facility] Last Admin: 05/20/17 08:24 Dose: 300 mg Home Med (Ciclopirox/Ure/Camph/Menth/Euc [Ciclopirox 8% Treatment Kit]) 1 appl TOP BID [facility] Home Med (Diclofenac Sodium [Diclo Gel]) 1 appl TOP BID [facility] Home Med (Meloxicam [Mobic]) 7.5 mg PO DAILY [facility] Home Med (Raloxifene [Evista]) 60 mg PO DAILY [facility] Ceftriaxone Sodium 1 gm/ (Sodium Chloride) 100 mls @ 100 mls/hr IVPB DAILY@ 0100 [facility] PRN Reason: Protocol Insulin Human Regular (Humulin R) 0 units SC ACHS [facility] PRN Reason: Protocol Last Admin: 05/20/17 12:39 Dose: 6 units Isosorbide Mononitrate (Imdur Er) 30 mg PO DAILY [facility] Last Admin: 05/20/17 08:24 Dose: 30 mg Lidocaine/Prilocaine (Lidocaine/Prilocaine 2.5%-2.5%) 1 applic TP BID [facility] Last Admin: 05/20/17 08:25 Dose: 1 applic Lisinopril (Zestril) 10 mg PO DAILY [facility] Last Admin: 05/20/17 08:26 Dose: Not Given Sevelamer HCl (Renagel) 800 mg PO DAILY [facility] Last Admin: 05/20/17 08:24 Dose: 800 mg Temazepam (Restoril) 30 mg PO HS PRN PRN Reason: Insomnia Last Admin: 05/20/17 01:39 Dose: 30 mg Tramadol HCl (Ultram) 50 mg PO Q6 PRN PRN Reason: Pain, moderate (4-7) Results - Vital Signs Recent Vital Signs: Last Vital Signs Temp 97.8 F 05/20/17 08:00 Pulse 87 05/20/17 08:00 Resp 18 05/20/17 08:00 BP 132/57 L 05/20/17 08:00 Pulse Ox 100 05/20/17 08:00 - Labs Result Diagrams: 05/20/17 05:35 05/20/17 05:35 Labs: Laboratory Results - last 24 hr 05/19/17 05/19/17 05/19/17 18:01 18:01 18:01 WBC 6.1 RBC 3.05 L Hgb 9.2 L Hct 27.4 L MCV 89.9 D MCH 30.0 MCHC 33.4 RDW 15.0 H Plt Count 122 L D MPV 8.7 Neut % (Auto) 77.8 H Lymph % (Auto) 12.2 L [place] % (Auto) 6.6 Eos % (Auto) 3.2 Baso % (Auto) 0.2 Neut # (Auto) 4.7 Lymph # (Auto) 0.7 L [place] # (Auto) 0.4 Eos # (Auto) 0.2 Baso # (Auto) 0.0 Sodium 139 Potassium 4.1 Chloride 95 L Carbon Dioxide 26 Anion Gap 22 H BUN 36 H Creatinine 3.1 H Est GFR ( Amer) 18 Est GFR (Non-Af Amer) 15 POC Glucose (mg/dL) Random Glucose 293 H Calcium 9.3 Phosphorus Magnesium Iron TIBC % Saturation Ferritin Total Bilirubin 0.5 AST 35 ALT 43 Alkaline Phosphatase 84 Troponin I 0.1990 H* Total Protein 7.7 Albumin 4.3 Globulin 3.4 Albumin/Globulin Ratio 1.3 Vitamin B12 TSH 3rd Generation Urine Color Urine Clarity Urine pH Ur Specific [place] Urine Protein Urine Glucose (UA) Urine Ketones Urine Blood Urine Nitrate Urine Bilirubin Urine Urobilinogen Ur Leukocyte Esterase Urine RBC (Auto) Urine Microscopic WBC Ur Squamous Epith Cells Amorphous Sediment Urine Bacteria Influenza Typ A,B (EIA) Negative for flu a/b 05/20/17 05/20/17 05/20/17 00:13 00:26 05:24 WBC RBC Hgb Hct MCV MCH MCHC RDW Plt Count MPV Neut % (Auto) Lymph % (Auto) [place] % (Auto) Eos % (Auto) Baso % (Auto) Neut # (Auto) Lymph # (Auto) [place] # (Auto) Eos # (Auto) Baso # (Auto) Sodium Potassium Chloride Carbon Dioxide Anion Gap BUN Creatinine Est GFR ( Amer) Est GFR (Non-Af Amer) POC Glucose (mg/dL) 303 H 75 Random Glucose Calcium Phosphorus Magnesium Iron TIBC % Saturation Ferritin Total Bilirubin AST ALT Alkaline Phosphatase Troponin I Total Protein Albumin Globulin Albumin/Globulin Ratio Vitamin B12 TSH 3rd Generation Urine Color Wanda Urine Clarity Turbid Urine pH 5.0 Ur Specific [place] 1.014 Urine Protein 100 Urine Glucose (UA) Neg Urine Ketones Negative Urine Blood Small Urine Nitrate Negative Urine Bilirubin Negative Urine Urobilinogen 0.2-1.0 Ur Leukocyte Esterase Large Urine RBC (Auto) 12 H Urine Microscopic WBC 387 H Ur Squamous Epith Cells 10 H Amorphous Sediment Rare H Urine Bacteria Mod H Influenza Typ A,B (EIA) 05/20/17 05/20/17 05/20/17 05:35 05:35 07:07 WBC 6.0 RBC 2.85 L Hgb 8.6 L Hct 25.6 L MCV 89.8 MCH 30.3 MCHC 33.7 RDW 15.0 H Plt Count 112 L MPV 8.6 Neut % (Auto) 58.2 Lymph % (Auto) 25.8 [place] % (Auto) 11.4 H Eos % (Auto) 4.1 H Baso % (Auto) 0.5 Neut # (Auto) 3.5 Lymph # (Auto) 1.5 [place] # (Auto) 0.7 Eos # (Auto) 0.2 Baso # (Auto) 0.0 Sodium 142 Potassium 4.5 Chloride 98 Carbon Dioxide 27 Anion Gap 22 H BUN 51 H Creatinine 4.0 H Est GFR ( Amer) 13 Est GFR (Non-Af Amer) 11 POC Glucose (mg/dL) 108 Random Glucose 111 H Calcium 9.2 Phosphorus 3.6 Magnesium 2.1 Iron TIBC % Saturation Ferritin Total Bilirubin 0.4 AST 34 ALT 45 Alkaline Phosphatase 73 Troponin I 0.3530 H* Total Protein 6.7 Albumin 3.7 Globulin 3.0 Albumin/Globulin Ratio 1.3 Vitamin B12 781 TSH 3rd Generation 0.30 L Urine Color Urine Clarity Urine pH Ur Specific [place] Urine Protein Urine Glucose (UA) Urine Ketones Urine Blood Urine Nitrate Urine Bilirubin Urine Urobilinogen Ur Leukocyte Esterase Urine RBC (Auto) Urine Microscopic WBC Ur Squamous Epith Cells Amorphous Sediment Urine Bacteria Influenza Typ A,B (EIA) 05/20/17 05/20/17 05/20/17 10:10 10:10 10:56 WBC RBC Hgb Hct MCV MCH MCHC RDW Plt Count MPV Neut % (Auto) Lymph % (Auto) [place] % (Auto) Eos % (Auto) Baso % (Auto) Neut # (Auto) Lymph # (Auto) [place] # (Auto) Eos # (Auto) Baso # (Auto) Sodium Potassium Chloride Carbon Dioxide Anion Gap BUN Creatinine Est GFR ( Amer) Est GFR (Non-Af Amer) POC Glucose (mg/dL) 320 H Random Glucose Calcium Phosphorus Magnesium Iron 118 TIBC 253 % Saturation 47 Ferritin 1680.0 H Total Bilirubin AST ALT Alkaline Phosphatase Troponin I Total Protein Albumin Globulin Albumin/Globulin Ratio Vitamin B12 TSH 3rd Generation Urine Color Urine Clarity Urine pH Ur Specific [place] Urine Protein Urine Glucose (UA) Urine Ketones Urine Blood Urine Nitrate Urine Bilirubin Urine Urobilinogen Ur Leukocyte Esterase Urine RBC (Auto) Urine Microscopic WBC Ur Squamous Epith Cells Amorphous Sediment Urine Bacteria Influenza Typ A,B (EIA)
--- NOTE | 2017-05-20 16:51 | CP.PCM.PN ---
Subjective - Date & Time of Evaluation Date of Evaluation: 05/20/17 Time of Evaluation: 16:47 - Subjective Subjective: Dialysis note Patient seen again in the afternoon for the dialysis. Vital signs stable She was seen by neurologist and psychiatrist Patient appeared to be stable on dialysis No chest pain no shortness of breath Objective - Vital Signs/Intake and Output Vital Signs (last 24 hours): Temp Pulse Resp BP Pulse Ox 98.7 F 81 16 125/67 100 05/20/17 15:57 05/20/17 15:57 05/20/17 15:57 05/20/17 15:57 05/20/17 15:57 - Medications Medications: Current Medications Amlodipine Besylate (Norvasc) 10 mg PO DAILY [facility] Last Admin: 05/20/17 08:26 Dose: Not Given Aspirin (Aspirin Chewable) 81 mg PO DAILY [facility] Last Admin: 05/20/17 08:24 Dose: 81 mg Ferrous Sulfate (Feosol) 325 mg PO DAILY [facility] Last Admin: 05/20/17 08:23 Dose: 325 mg Gabapentin (Neurontin) 300 mg PO DAILY [facility] Last Admin: 05/20/17 08:24 Dose: 300 mg Home Med (Ciclopirox/Ure/Camph/Menth/Euc [Ciclopirox 8% Treatment Kit]) 1 appl TOP BID [facility] Home Med (Diclofenac Sodium [Diclo Gel]) 1 appl TOP BID [facility] Home Med (Meloxicam [Mobic]) 7.5 mg PO DAILY [facility] Home Med (Raloxifene [Evista]) 60 mg PO DAILY [facility] Ceftriaxone Sodium 1 gm/ (Sodium Chloride) 100 mls @ 100 mls/hr IVPB DAILY@ 0100 [facility] PRN Reason: Protocol Insulin Human Regular (Humulin R) 0 units SC [facility] PRN Reason: Protocol Last Admin: 05/20/17 16:26 Dose: Not Given Isosorbide Mononitrate (Imdur Er) 30 mg PO DAILY [facility] Last Admin: 05/20/17 08:24 Dose: 30 mg Lidocaine/Prilocaine (Lidocaine/Prilocaine 2.5%-2.5%) 1 applic TP BID [facility] Last Admin: 05/20/17 16:26 Dose: 1 applic Lisinopril (Zestril) 10 mg PO DAILY [facility] Last Admin: 05/20/17 08:26 Dose: Not Given Sevelamer HCl (Renagel) 800 mg PO DAILY [facility] Last Admin: 05/20/17 08:24 Dose: 800 mg Temazepam (Restoril) 30 mg PO HS PRN PRN Reason: Insomnia Last Admin: 05/20/17 01:39 Dose: 30 mg Tramadol HCl (Ultram) 50 mg PO Q6 PRN PRN Reason: Pain, moderate (4-7) - Labs Labs: 05/20/17 05:35 05/20/17 05:35 - Constitutional Appears: No Acute Distress - ENT Exam ENT Exam: Mucous Membranes Moist - Neck Exam Neck Exam: absent: Lymphadenopathy - Cardiovascular Exam Cardiovascular Exam: REGULAR RHYTHM. absent: Gallop, Rubs - GI/Abdominal Exam GI & Abdominal Exam: Soft, Normal Bowel Sounds - Extremities Exam Extremities Exam: absent: Calf Tenderness - Back Exam Back Exam: absent: CVA tenderness (L) - Neurological Exam Neurological Exam: Alert - Psychiatric Exam Psychiatric exam: Anxious - Skin Skin Exam: absent: Cyanosis Assessment and Plan (1) CKD (chronic kidney disease) requiring chronic dialysis Assessment & Plan: End stage renal disease receiving hemodialysis now. From left AV fistula Discussed with the dialysis nurse at the bedside Sodium bath 138 Bicarbonate bath 34 K bath 2 mEq Ultrafiltration 2500 mL Vital signs stable on dialysis Patient tolerating very well hemodialysis No cramping Hemodynamically stable Patient may be going home tomorrow morning because she was cleared by the neurologist. Status: Acute (2) Altered mental status Status: Acute (3) Diabetes type 2, uncontrolled Status: Acute (4) Elevated troponin Status: Acute (5) UTI (urinary tract infection) Status: Acute
[2017-05-20 20:01] VITALS: RESP 18
[2017-05-20 22:31] LABS: HEPATITIS B SURFACE AG Negative (NEGATIVE)
[2017-05-20 22:36] LABS: HEPATITIS B CORE AB NEGATIVE (NEGATIVE)
[2017-05-21] MEDS: Insulin Regular 100 units/ml SC SCH (06:36)
[2017-05-21 08:02] VITALS: BP 130/70; PULSE 89; TEMP 98.2; O2SAT 98
[2017-05-21 08:05] LABS: BASO % 0.5 % (0.0-2.0); EOS # 0.2 K/uL (0.0-0.7); EOS % 3.7 % (0.0-4.0); LYMPH # 1.4 K/uL (1.0-4.3); LYMPH % 25.9 % (20.0-40.0); MEAN CELL VOLUME 89.8 fl (81.0-99.0); MEAN CORPUSCULAR HEMOGLOBIN 30.3 pg (27.0-31.0); MEAN CORPUSCULAR HGB CONC 33.7 g/dL (33.0-37.0); MEAN PLATELET VOLUME 8.8 fl (7.2-11.7); MONO # 0.6 K/uL (0.0-0.8); MONO % 11.3 % (0.0-10.0); NEUT # 3.2 K/uL (1.8-7.0); NEUT % 58.6 % (50.0-75.0); NRBC % 0.3 % (0.0-0.0); RBC 2.97 Mil/uL (3.80-5.20); RED CELL DISTRIBUTION WIDTH 14.6 % (11.5-14.5); WHITE BLOOD COUNT 5.4 K/uL (4.8-10.8)
[2017-05-21 08:18] LABS: ALB/GLOB RATIO 1.2 (1.0-2.1); ALBUMIN 3.7 g/dL (3.5-5.0)
--- NOTE | 2017-05-21 10:12 | CP.PCM.PN ---
Subjective - Date & Time of Evaluation Date of Evaluation: 05/21/17 Time of Evaluation: 10:10 - Subjective Subjective: pt doing well. no f/c, n/v/d. had mri today. mentating well. no hallucinations. no complaints. all consults appriciated. Objective - Vital Signs/Intake and Output Vital Signs (last 24 hours): Temp Pulse Resp BP Pulse Ox 98.2 F 89 18 130/70 98 05/21/17 08:01 05/21/17 08:01 05/21/17 08:01 05/21/17 08:01 05/21/17 08:01 - Medications Medications: Current Medications Amlodipine Besylate (Norvasc) 10 mg PO DAILY [facility] Last Admin: 05/20/17 08:26 Dose: Not Given Aspirin (Aspirin Chewable) 81 mg PO DAILY [facility] Last Admin: 05/20/17 08:24 Dose: 81 mg Ferrous Sulfate (Feosol) 325 mg PO DAILY [facility] Last Admin: 05/20/17 08:23 Dose: 325 mg Gabapentin (Neurontin) 300 mg PO DAILY [facility] Last Admin: 05/20/17 08:24 Dose: 300 mg Home Med (Ciclopirox/Ure/Camph/Menth/Euc [Ciclopirox 8% Treatment Kit]) 1 appl TOP BID [facility] Home Med (Diclofenac Sodium [Diclo Gel]) 1 appl TOP BID [facility] Home Med (Meloxicam [Mobic]) 7.5 mg PO DAILY [facility] Home Med (Raloxifene [Evista]) 60 mg PO DAILY [facility] Ceftriaxone Sodium 1 gm/ (Sodium Chloride) 100 mls @ 100 mls/hr IVPB DAILY@ 0100 [facility] PRN Reason: Protocol Last Admin: 05/21/17 00:32 Dose: 100 mls/hr Insulin Human Regular (Humulin R) 0 units SC [facility] PRN Reason: Protocol Last Admin: 05/21/17 06:36 Dose: Not Given Isosorbide Mononitrate (Imdur Er) 30 mg PO DAILY [facility] Last Admin: 05/20/17 08:24 Dose: 30 mg Lidocaine/Prilocaine (Lidocaine/Prilocaine 2.5%-2.5%) 1 applic TP BID [facility] Last Admin: 05/20/17 16:26 Dose: 1 applic Lisinopril (Zestril) 10 mg PO DAILY [facility] Last Admin: 05/20/17 08:26 Dose: Not Given Sevelamer HCl (Renagel) 800 mg PO DAILY [facility] Last Admin: 05/20/17 08:24 Dose: 800 mg Tramadol HCl (Ultram) 50 mg PO Q6 PRN PRN Reason: Pain, moderate (4-7) Last Admin: 05/20/17 21:23 Dose: 50 mg - Labs Labs: 05/21/17 06:24 05/21/17 06:24 - Constitutional Appears: Well, Non-toxic, No Acute Distress - Head Exam Head Exam: ATRAUMATIC, NORMAL INSPECTION, NORMOCEPHALIC - Eye Exam Eye Exam: EOMI, Normal appearance, PERRL Pupil Exam: NORMAL ACCOMODATION, PERRL - ENT Exam ENT Exam: Mucous Membranes Moist, Normal Exam - Neck Exam Neck Exam: Full ROM, Normal Inspection. absent: Lymphadenopathy - Respiratory Exam Respiratory Exam: Clear to Ausculation Bilateral, NORMAL BREATHING PATTERN - Cardiovascular Exam Cardiovascular Exam: REGULAR RHYTHM, RRR, +S1, +S2. absent: Murmur - GI/Abdominal Exam GI & Abdominal Exam: Soft, Normal Bowel Sounds. absent: Tenderness - Extremities Exam Extremities Exam: Full ROM, Normal Capillary Refill, Normal Inspection. absent : Joint Swelling, Pedal Edema - Back Exam Back Exam: NORMAL INSPECTION - Neurological Exam Neurological Exam: Alert, Awake, CN II-XII Intact, Normal Gait, Oriented x3 - Psychiatric Exam Psychiatric exam: Normal Affect, Normal Mood - Skin Skin Exam: Dry, Intact, Normal Color, Warm Assessment and Plan (1) Diabetes type 2, uncontrolled Status: Acute (2) DVT prophylaxis Status: Acute (3) Altered mental status Status: Acute (4) Elevated troponin Status: Acute (5) ESRD (end stage renal disease) on dialysis Status: Chronic (6) UTI (urinary tract infection) Status: Acute - Assessment and Plan (Free Text) Assessment: (1) Diabetes type 2, uncontrolled Assessment and Plan: fsbg, riss, home meds diet control Status: Acute (2) DVT prophylaxis Assessment and Plan: scd and aehose ambulation lovenox if admitted over 24h-for dc today Status: Acute (3) Altered mental status Assessment and Plan: likely r/t uti eeg negative as per neuro mri brain, neuro Status: Acute (4) Elevated troponin Assessment and Plan: likely r/t esrd status, cardio cleare dby cardio Status: Acute (5) ESRD (end stage renal disease) on dialysis Assessment and Plan: dialysis, nephro Status: Chronic Priority: Medium (6) UTI (urinary tract infection) Assessment and Plan: rocephin, f/u c/s dc augmentin Status: Acute
[2017-05-21] MEDS: Lidocaine/Prilocaine CREAM 5GM TP SCH (10:48)
--- NOTE | 2017-05-21 12:42 | MRI ---
EXAM: MR Head Without Intravenous Contrast EXAM DATE/TIME: Examination ordered 05/20/2017 9:38 AM. Image number total count reviewed 216 CLINICAL HISTORY: The patient is 72 years old and is female; Signs and symptoms; Altered mental status/memory loss; Age related cognitive decline; Additional info: [facility] Facility exam id and description: Mri br s brain without contrast TECHNIQUE: Magnetic resonance images of the head/brain without intravenous contrast in multiple planes. COMPARISON: CT - HEAD W/O CONTRAST 2017-05-19 19:06 FINDINGS: BRAIN: There is no restricted diffusion identified. There is no mass, mass-effect or midline shift. There are no intra-or extra-axial fluid collections. No intracranial hemorrhage is identified on gradient echo. The stoll/white matter differentiation is intact. There are mild confluent and patchy T2 hyperintensities on T2 and FLAIR imaging in the periventricular white matter, extending into the centrum semiovale and the love radiata, bilaterally. These hyperintensities do not exert mass effect or restricted diffusion. These are felt to represent the sequela of small vessel ischemic disease (microangiopathy). To the extent that they may be viewed on routine MR images, the intracranial vascular flow-voids have a normal appearance. VENTRICLES: Ventricles: The ventricles, sulci, and basilar cisterns are prominent, compatible with mild global atrophy. There is a cavum septum pellucidum which is a developmental variant. BONES/JOINTS: Unremarkable. SINUSES: There is patchy LEFT sided ethmoid opacification and moderate LEFT maxillary sinus opacification. No acute sinusitis. MASTOID AIR CELLS: Unremarkable as visualized. No mastoid effusion. ORBITS: The globes and orbits are intact. SELLA: The midline structures including the clivus, corpus callosum, superior sagittal sinus and cerebellar tonsils are normal. There is a partially empty sella. IMPRESSION: There is no restricted diffusion identified. NO evidence of acute ischemia.
--- NOTE | 2017-05-21 13:42 | CP.PCM.DIS ---
Provider - Provider Date of Admission: 05/19/17 20:10 Attending physician: Mohit Cali MD Time Spent in preparation of Discharge (in minutes): 15 Diagnosis - Discharge Diagnosis (1) Diabetes type 2, uncontrolled Status: Acute (2) DVT prophylaxis Status: Acute (3) Altered mental status Status: Acute (4) Elevated troponin Status: Acute (5) ESRD (end stage renal disease) on dialysis Status: Chronic Priority: Medium (6) UTI (urinary tract infection) Status: Acute Hospital Course - Lab Results Lab Results: Most Recent Lab Values WBC 5.4 K/uL (4.8-10.8) 05/21/17 06:24 RBC 2.97 Mil/uL (3.80-5.20) L 05/21/17 06:24 Hgb 9.0 g/dL (12.0-16.0) L 05/21/17 06:24 Hct 26.6 % (34.0-47.0) L 05/21/17 06:24 MCV 89.8 fl (81.0-99.0) 05/21/17 06:24 MCH 30.3 pg (27.0-31.0) 05/21/17 06:24 MCHC 33.7 g/dL (33.0-37.0) 05/21/17 06:24 RDW 14.6 % (11.5-14.5) H 05/21/17 06:24 Plt Count 110 K/uL (130-400) L 05/21/17 06:24 MPV 8.8 fl (7.2-11.7) 05/21/17 06:24 Neut % (Auto) 58.6 % (50.0-75.0) 05/21/17 06:24 Lymph % (Auto) 25.9 % (20.0-40.0) 05/21/17 06:24 [place] % (Auto) 11.3 % (0.0-10.0) H 05/21/17 06:24 Eos % (Auto) 3.7 % (0.0-4.0) 05/21/17 06:24 Baso % (Auto) 0.5 % (0.0-2.0) 05/21/17 06:24 Neut # (Auto) 3.2 K/uL (1.8-7.0) 05/21/17 06:24 Lymph # (Auto) 1.4 K/uL (1.0-4.3) 05/21/17 06:24 [place] # (Auto) 0.6 K/uL (0.0-0.8) 05/21/17 06:24 Eos # (Auto) 0.2 K/uL (0.0-0.7) 05/21/17 06:24 Baso # (Auto) 0.0 K/uL (0.0-0.2) 05/21/17 06:24 Sodium 139 mmol/l (132-148) 05/21/17 06:24 Potassium 3.9 MMOL/L (3.6-5.0) 05/21/17 06:24 Chloride 95 mmol/L (98-107) L 05/21/17 06:24 Carbon Dioxide 29 mmol/L (22-30) 05/21/17 06:24 Anion Gap 19 (10-20) 05/21/17 06:24 BUN 31 mg/dl (7-17) H 05/21/17 06:24 Creatinine 3.3 mg/dl (0.7-1.2) H 05/21/17 06:24 Est GFR ( Amer) 17 05/21/17 06:24 Est GFR (Non-Af Amer) 14 05/21/17 06:24 POC Glucose (mg/dL) 137 mg/dL (65-110) H 05/21/17 05:36 Random Glucose 150 mg/dL (65-105) H 05/21/17 06:24 Calcium 9.0 mg/dL (8.4-10.2) 05/21/17 06:24 Phosphorus 3.6 mg/dl (2.5-4.5) 05/20/17 05:35 Magnesium 2.1 MG/DL (1.6-2.3) 05/20/17 05:35 Iron 118 ug/dL (37-170) 05/20/17 10:10 TIBC 253 ug/dL (250-450) 05/20/17 10:10 % Saturation 47 % (20-55) 05/20/17 10:10 Ferritin 1680.0 ng/Ml (11.1-264.0) H 05/20/17 10:10 Total Bilirubin 0.4 mg/dl (0.2-1.3) 05/21/17 06:24 AST 31 U/L (14-36) 05/21/17 06:24 ALT 41 U/L (9-52) 05/21/17 06:24 Alkaline Phosphatase 73 U/L (38-126) 05/21/17 06:24 Troponin I 0.3530 ng/mL (0.00-0.120) H* 05/20/17 05:35 Total Protein 6.8 G/DL (6.3-8.2) 05/21/17 06:24 Albumin 3.7 g/dL (3.5-5.0) 05/21/17 06:24 Globulin 3.2 gm/dL (2.2-3.9) 05/21/17 06:24 Albumin/Globulin Ratio 1.2 (1.0-2.1) 05/21/17 06:24 Vitamin B12 781 pg/mL (239-931) 05/20/17 05:35 TSH 3rd Generation 0.30 mIU/ML (0.46-4.68) L 05/20/17 05:35 Urine Color Wanda (YELLOW) 05/20/17 00:26 Urine Clarity Turbid (Clear) 05/20/17 00:26 Urine pH 5.0 (5.0-8.0) 05/20/17 00:26 Ur Specific [place] 1.014 (1.003-1.030) 05/20/17 00:26 Urine Protein 100 mg/dL (NEGATIVE) 05/20/17 00:26 Urine Glucose (UA) Neg mg/dL (Normal) 05/20/17 00:26 Urine Ketones Negative mg/dL (NEGATIVE) 05/20/17 00:26 Urine Blood Small (NEGATIVE) 05/20/17 00:26 Urine Nitrate Negative (NEGATIVE) 05/20/17 00:26 Urine Bilirubin Negative (NEGATIVE) 05/20/17 00:26 Urine Urobilinogen 0.2-1.0 mg/dL (0.2-1.0) 05/20/17 00:26 Ur Leukocyte Esterase Large Alec/uL (Negative) 05/20/17 00:26 Urine RBC (Auto) 12 /hpf (0-3) H 05/20/17 00:26 Urine Microscopic WBC 387 /hpf (0-5) H 05/20/17 00:26 Ur Squamous Epith Cells 10 /hpf (0-5) H 05/20/17 00:26 Amorphous Sediment Rare /ul (<OCC) H 05/20/17 00:26 Urine Bacteria Mod (<OCC) H 18 00:26 RPR Nonreactive (NONREACTIVE) 05/20/17 07:30 Hep Bs Antigen Negative (NEGATIVE) 05/20/17 15:27 Hep Bs Antibody Positive (NEGATIVE) 05/20/17 15:27 Hep B Core IgM Ab Negative (NEGATIVE) 05/20/17 15:27 Influenza Typ A,B (EIA) Negative for flu a/b (NEGATIVE) 05/19/17 18:01 - Hospital Course Hospital Course: cardio, kjjkja Discharge Exam - Head Exam Head Exam: ATRAUMATIC, NORMAL INSPECTION, NORMOCEPHALIC - Eye Exam Eye Exam: EOMI, Normal appearance, PERRL Pupil Exam: NORMAL ACCOMODATION, PERRL - GI/Abdominal Exam GI & Abdominal Exam: Normal Bowel Sounds - Neurological Exam Neurological exam: Alert, CN II-XII Intact, Normal Gait, Oriented x3, Reflexes Normal - Psychiatric Exam Psychiatric exam: Normal Affect, Normal Mood - Skin Skin Exam: Dry, Intact, Normal Color, Warm Discharge Plan - Discharge Medications Prescriptions: Amoxicillin/Clavulanate [Augmentin 875 MG-125 MG] 1 tab PO DAILY #7 tab - Follow Up Plan Condition: STABLE Disposition: HOME/ ROUTINE Instructions: Kidney Failure (DC), Altered Mental Status (DC) Additional Instructions: continue dialysis mwf follow up with pmd in 1 week final dx-ams, uti, esrd rted prn, meds per med rec cleared by consultants for dc ams r/t uti Referrals: Jm Ta MD [Staff Provider] - Jhoan Anthony MD [Family Provider] - Sudhir Hi MD [Staff Provider] -
--- NOTE | 2017-05-23 11:03 | EEG ---
DATE: Technical Information: Electrodes were placed according to the 10-20 International electrode system by special procedures technologist. Total of 23 electrodes (21 EEG and 2 EKG) were placed. EEG activity was digitally recorded referentially to P1/P2 or A1/A2 electrodes. Continuous monitoring with EEG was performed using digital analysis for spike detection. The [employer] spike and seizure detection algorithms were used for digital EEG analysis throughout the monitoring period to screen the EEG in real-time and chidi the data file with pointers to electrographic seizures and interictal discharges. EEG was screened for electrographic seizures and interictal discharges by a technologist. Physician, epileptologist reviewed detections as well as extensive random samples and whole EEG study in detail. Digital EEG Analysis: Was carried out including FFT (Fast Fourier Transform), R2D2 (Rhythmicity Run Detection and Display), Relative Asymmetry Spectrogram, and voltage plot by the [employer]. The qualitative EEG analysis and the voltage plot mapping were used for detection of foci of paroxysmal and abnormal electrical cortical activity. General Description: Background Rhythm: There is a well-formed, 8-10 Hz posterior dominant rhythm that is reactive, symmetric, and attenuates with eye opening. There was a normal amount of frontal beta noted bilaterally. There is no sleep recorded. Activation Procedures: Photic stimulation: There is no driving noted. Hyperventilation: There is slowing noted that is self-remitted. Abnormal Activity: There are no focal epileptiform discharges noted. No clinical or subclinical seizures noted. IMPRESSION: This is a normal awake and drowsy electroencephalogram. Clinical correlation is required. Ching Christianson MD
[2017-05-23 17:40] LABS: FOLATE > 20.0 ng/mL
== END 2017-05-21 11:57 | disposition home or self-care (01) ==
LOC: H.ER 16:52 → H.ERHOLD 20:10 → H.TEL 05-20 00:52
PROVIDERS: ADMIT Family Medicine; ATTEND Family Medicine
DX: R41.82 Altered mental status, unspecified (principal); N39.0 Urinary tract infection, site not specified; N18.6 End stage renal disease; E11.65 Type 2 diabetes mellitus with hyperglycemia; E78.00 Pure hypercholesterolemia, unspecified; F29 Unspecified psychosis not due to a substance or known physiological condition; I12.0 Hypertensive chronic kidney disease with stage 5 chronic kidney disease or end stage renal disease; I25.10 Atherosclerotic heart disease of native coronary artery without angina pectoris; Z87.01 Personal history of pneumonia (recurrent); Z79.02 Long term (current) use of antithrombotics/antiplatelets; Z79.82 Long term (current) use of aspirin; Z90.49 Acquired absence of other specified parts of digestive tract; Z95.5 Presence of coronary angioplasty implant and graft; Z99.2 Dependence on renal dialysis; F32.9 Major depressive disorder, single episode, unspecified; G89.29 Other chronic pain; M19.90 Unspecified osteoarthritis, unspecified site; Z79.84 Long term (current) use of oral hypoglycemic drugs; Z79.899 Other long term (current) drug therapy; R74.8 Abnormal levels of other serum enzymes; D64.9 Anemia, unspecified; E11.22 Type 2 diabetes mellitus with diabetic chronic kidney disease
CPT/HCPCS: 36415; 70450; 70551; 71045; 80053; 81003; 82607; 82728; 82746; 82803; 82948; 83540; 83550; 83735; 83970; 84100; 84443; 84484; 85025; 86592; 86705; 86706; 87086; 87181; 87340; 87804; 93005; 95816; 96372; 99285; G0378; J0696; Q4081

== ENCOUNTER 2017-06-06 18:25 | Observation (INO) | payer OTHER ==
[2017-06-06 18:25] VITALS: BMI 23.0
[2017-06-06 19:42] LABS: BASO % 1.4 % (0.0-2.0); EOS # 0.2 K/uL (0.0-0.7); EOS % 6.8 % (0.0-4.0); HEMOGLOBIN 10.5 g/dL (12.0-16.0); LYMPH # 0.9 K/uL (1.0-4.3); LYMPH % 29.9 % (20.0-40.0); MEAN CELL VOLUME 96.6 fl (81.0-99.0); MEAN CORPUSCULAR HEMOGLOBIN 30.5 pg (27.0-31.0); MEAN CORPUSCULAR HGB CONC 31.5 g/dL (33.0-37.0); MEAN PLATELET VOLUME 8.1 fl (7.2-11.7); MONO # 0.3 K/uL (0.0-0.8); MONO % 9.2 % (0.0-10.0); NEUT # 1.5 K/uL (1.8-7.0); NEUT % 52.7 % (50.0-75.0); NRBC % 0.2 % (0.0-0.0); RBC 3.44 Mil/uL (3.80-5.20); RED CELL DISTRIBUTION WIDTH 18.9 % (11.5-14.5); WHITE BLOOD COUNT 2.9 K/uL (4.8-10.8)
[2017-06-06 19:45] LABS: ALB/GLOB RATIO 1.3 (1.0-2.1); ALBUMIN 4.3 g/dL (3.5-5.0); ALT/SGPT 32 U/L (9-52); AST/SGOT 41 U/L (14-36); BLOOD UREA NITROGEN 24 mg/dl (7-17); CALCIUM 9.3 mg/dL (8.4-10.2); GFR AFRICAN-AMERICAN 14; GFR NON-AFRICAN AMERICAN 12
[2017-06-06 20:07] LABS: PARTIAL THROMBOPLASTIN TIME 31.7 Seconds (25.6-37.1); PROTHROMBIN TIME 10.5 Seconds (9.8-13.1)
--- NOTE | 2017-06-06 21:35 | ED PDOC ---
Syncope/Near Syncope/Dizziness Time Seen by Provider: 06/06/17 18:56 Chief Complaint (Nursing): Dizziness/Lightheaded Chief Complaint (Provider): weakness History/Exam Limitations: no limitations Onset/Duration Of Symptoms: Sudden Onset Current Symptoms Are (Timing): Better Past Medical History Vital Signs: Last Vital Signs Temp 97.5 F L 06/06/17 18:32 Pulse 86 06/06/17 18:32 Resp 18 06/06/17 18:32 BP 172/77 H 06/06/17 18:32 Pulse Ox 97 06/06/17 18:32 - Medical History PMH: Arthritis, CAD, Depression, Diabetes (type II), HTN, Hypercholesterolemia, Pneumonia, End Stage Renal Disease, Chronic Kidney Disease (HD M/W/F) Denies: CHF, COPD, HIV, Hypothyroidism, Rheumatoid Arthritis - Surgical History Surgical History: Appendectomy, Cholecystectomy, Coronary Stent - Family History Family History: States: Unknown Family Hx - Immunization History Hx Tetanus Toxoid Vaccination: No Hx Influenza Vaccination: No Hx Pneumococcal Vaccination: No - Home Medications Home Medications: Ambulatory Orders Medication Instructions Recorded Aspirin 81 mg PO DAILY 08/09/16 Ferrous Sulfate [Feosol] 325 mg PO DAILY 08/09/16 Gabapentin [Neurontin] 300 mg PO DAILY 08/09/16 Isosorbide Dinitrate 30 mg PO DAILY 08/09/16 Lisinopril [Zestril] 10 mg PO DAILY 08/09/16 Sevelamer Carbonate [Renvela] 800 mg PO DAILY 08/09/16 Temazepam [Restoril] 30 mg PO HS 08/09/16 amLODIPine [Norvasc] 10 mg PO DAILY 08/09/16 Ciclopirox/Ure/Camph/Menth/Euc 1 appl TOP BID 05/19/17 [Ciclopirox 8% Treatment Kit] Diclofenac Sodium [Diclo Gel] 1 appl TOP BID 05/19/17 Lidocaine/Prilocaine 2.5%-2.5% 1 appl TOP BID 05/19/17 [Emla] Meloxicam [Mobic] 7.5 mg PO DAILY 05/19/17 Oxycodone HCl/Acetaminophen 1 tab PO Q6 PRN 05/19/17 [Percocet 10-325 mg Tablet] Raloxifene [Evista] 60 mg PO DAILY 05/19/17 Tramadol HCl [Ultram] 50 mg PO Q6 PRN 05/19/17 Amoxicillin/Clavulanate [Augmentin 1 tab PO DAILY #7 tab 05/21/17 875 MG-125 MG] - Allergies Allergies/Adverse Reactions: Allergies Allergy/AdvReac Type Severity Reaction Status Date / Time No Known Allergies Allergy Verified 06/13/16 15:16 - Laboratory Results Result Diagrams: 06/06/17 19:24 06/06/17 19:24 - ECG O2 Sat by Pulse Oximetry: 97 Disposition - Disposition
[2017-06-06] MEDS ORDERED: Oxycodone/Acetaminophen 5/325 mg Tab PO PRN (21:53)
[2017-06-07] MEDS ORDERED: Insulin Regular 100 units/ml SC STA (00:10)
--- NOTE | 2017-06-07 00:14 | CT ---
EXAM: CT Head Without Intravenous Contrast CLINICAL HISTORY: 72 years old, female; Pain and signs and symptoms; Dizziness; Headache; Headache not specified; Additional info: Dizziness headache TECHNIQUE: Axial computed tomography images of the head/brain without intravenous contrast. All CT scans at this facility use one or more dose reduction techniques, viz.: automated exposure control; ma/kV adjustment per patient size (including targeted exams where dose is matched to indication; i.e. head); or iterative reconstruction technique. Coronal and sagittal reformatted images were created and reviewed. COMPARISON: CT - HEAD W/O CONTRAST 2017-05-19 19:06 FINDINGS: Brain: Aawa-il-kpfjmedi atrophy. No intracranial hemorrhage. No mass. Several scattered foci of decreased attenuation within periventricular/subcortical white matter. Probable chronic lacunar infarct about LEFT basal ganglia. No definite edema. Ventricles: No hydrocephalus. Bones/joints: No acute fracture. Soft tissues: Unremarkable. Vasculature: Atherosclerotic disease of intracranial arteries. Sinuses: No acute sinusitis. Mastoid air cells: No mastoid effusion. Orbits: Unremarkable as visualized. IMPRESSION: 1. Nonspecific white matter changes. Acute infarction may be CT occult within first 24 hours. If a focal deficit persists, consider followup CT or MRI for further evaluation. 2. Incidental/non-acute findings are described above.
[2017-06-07 06:03] LABS: ALB/GLOB RATIO 1.3 (1.0-2.1); ALBUMIN 3.6 g/dL (3.5-5.0)
[2017-06-07 06:07] LABS: TROPONIN I 0.017 ng/mL (0.00-0.120)
[2017-06-07 06:12] LABS: BASO % 1.2 % (0.0-2.0); EOS # 0.2 K/uL (0.0-0.7); EOS % 7.1 % (0.0-4.0); HEMOGLOBIN 9.9 g/dL (12.0-16.0); LYMPH # 1.3 K/uL (1.0-4.3); LYMPH % 39.1 % (20.0-40.0); MEAN CELL VOLUME 94.2 fl (81.0-99.0); MEAN CORPUSCULAR HEMOGLOBIN 31.3 pg (27.0-31.0); MEAN CORPUSCULAR HGB CONC 33.2 g/dL (33.0-37.0); MONO # 0.4 K/uL (0.0-0.8); MONO % 10.8 % (0.0-10.0); NEUT # 1.4 K/uL (1.8-7.0); NEUT % 41.8 % (50.0-75.0); NRBC % 0.2 % (0.0-0.0); RBC 3.15 Mil/uL (3.80-5.20); RED CELL DISTRIBUTION WIDTH 18.2 % (11.5-14.5); WHITE BLOOD COUNT 3.4 K/uL (4.8-10.8)
--- NOTE | 2017-06-07 07:21 | CP.PCM.HP ---
History of Present Illness - History of Present Illness History of Present Illness: pt admitted for near syncope. at present pt noted w/ r sided weakness to upper andlower ext. no facial droop or slurred speech noted. pt states feels rue asleep. ?? thrill/bruit to left carotid area. pt c/opain to left neck area. no f/c, n/v/d. bw noted. ct head from er noted. pt was recently admitted for ams r/t uti. urine studies pending Present on Admission - Present on Admission Any Indicators Present on Admission: Yes History of Uncontrolled Diabetes: Yes Review of Systems - Neurological Neurological: As Per HPI (d), Focal Weakness, Sensory Deficit Past Patient History - Past Medical History & Family History Past Medical History?: Yes - Past Social History Smoking Status: Former Smoker - CARDIAC Hx Congestive Heart Failure: No Hx Hypercholesterolemia: Yes Hx Hypertension: Yes - PULMONARY Hx Chronic Obstructive Pulmonary Disease (COPD): No Hx Pneumonia: Yes - NEUROLOGICAL HX Cerebrovascular Accident: No - HEENT Hx HEENT Problems: No - RENAL Hx Chronic Kidney Disease: Yes (HD M/W/F) Type of Dialysis Access: left AV shunt Date of Last Dialysis Treatment: 06/06/17 - ENDOCRINE/METABOLIC Hx Diabetes Mellitus Type 2: Yes Hx Hypothyroidism: No - HEMATOLOGICAL/ONCOLOGICAL Hx Anemia: Yes Hx Human Immunodeficiency Virus (HIV): No - INTEGUMENTARY Hx Dermatological Problems: No - MUSCULOSKELETAL/RHEUMATOLOGICAL Hx Arthritis: Yes Hx Falls: Yes Hx Rheumatoid Arthritis: Yes Hx Unsteady Gait: Yes - GASTROINTESTINAL Hx Gastrointestinal Disorders: No - GENITOURINARY/GYNECOLOGICAL Hx Genitourinary Disorders: No - PSYCHIATRIC Hx Substance Use: No - SURGICAL HISTORY Hx Appendectomy: Yes Hx Cholecystectomy: Yes Hx Coronary Stent: Yes Hx Herniorrhaphy: Yes - ANESTHESIA Hx Anesthesia: Yes Hx Anesthesia Reactions: No Hx Malignant Hyperthermia: No Meds Allergies/Adverse Reactions: Allergies Allergy/AdvReac Type Severity Reaction Status Date / Time No Known Allergies Allergy Verified 06/13/16 15:16 Physical Exam - Constitutional Appears: Well, Non-toxic, No Acute Distress - Head Exam Head Exam: ATRAUMATIC, NORMAL INSPECTION, NORMOCEPHALIC - Eye Exam Eye Exam: EOMI, Normal appearance, PERRL Pupil Exam: NORMAL ACCOMODATION, PERRL - ENT Exam ENT Exam: Mucous Membranes Moist, Normal Exam - Neck Exam Neck exam: Positive for: Normal Inspection - Respiratory Exam Respiratory Exam: Clear to Auscultation Bilateral, NORMAL BREATHING PATTERN - Cardiovascular Exam Cardiovascular Exam: REGULAR RHYTHM, RRR, +S1, +S2 - GI/Abdominal Exam GI & Abdominal Exam: Normal Bowel Sounds, Soft. absent: Tenderness - Extremities Exam Extremities exam: Positive for: full ROM, normal capillary refill, normal inspection, pedal pulses present - Back Exam Back exam: NORMAL INSPECTION - Neurological Exam Neurological exam: Alert, CN II-XII Intact, Normal Gait, Oriented x3, Reflexes Normal Additional comments: left carotid bruit/thrill noted - Psychiatric Exam Psychiatric exam: Normal Affect, Normal Mood - Skin Skin Exam: Dry, Intact, Normal Color, Warm Results - Vital Signs Recent Vital Signs: Last Vital Signs Temp 97.0 F L 06/07/17 05:29 Pulse 63 06/07/17 05:29 Resp 18 06/07/17 05:29 BP 142/69 06/07/17 05:29 Pulse Ox 99 06/07/17 05:29 - Labs Result Diagrams: 06/07/17 04:20 06/07/17 04:20 Labs: Laboratory Results - last 24 hr 06/06/17 06/06/17 06/06/17 19:20 19:24 19:24 WBC 2.9 L RBC 3.44 L Hgb 10.5 L Hct 33.3 L MCV 96.6 D MCH 30.5 MCHC 31.5 L RDW 18.9 H Plt Count 181 MPV 8.1 Neut % (Auto) 52.7 Lymph % (Auto) 29.9 [place] % (Auto) 9.2 Eos % (Auto) 6.8 H Baso % (Auto) 1.4 Neut # (Auto) 1.5 L Lymph # (Auto) 0.9 L [place] # (Auto) 0.3 Eos # (Auto) 0.2 Baso # (Auto) 0.0 PT INR APTT Sodium 138 Potassium 4.4 Chloride 99 Carbon Dioxide 26 Anion Gap 17 BUN 24 H Creatinine 3.8 H Est GFR ( Amer) 14 Est GFR (Non-Af Amer) 12 POC Glucose (mg/dL) Random Glucose 147 H Calcium 9.3 Phosphorus 3.3 Magnesium 2.3 Total Bilirubin 0.7 AST 41 H D ALT 32 Alkaline Phosphatase 82 Troponin I < 0.0120 Total Protein 7.6 Albumin 4.3 Globulin 3.2 Albumin/Globulin Ratio 1.3 Influenza Typ A,B (EIA) Blood Type A POSITIVE Antibody Screen Negative BBK History Checked Patient has bt 06/06/17 06/06/17 06/06/17 19:24 19:24 19:30 WBC RBC Hgb Hct MCV MCH MCHC RDW Plt Count MPV Neut % (Auto) Lymph % (Auto) [place] % (Auto) Eos % (Auto) Baso % (Auto) Neut # (Auto) Lymph # (Auto) [place] # (Auto) Eos # (Auto) Baso # (Auto) PT 10.5 INR 1.0 APTT 31.7 Sodium Potassium Chloride Carbon Dioxide Anion Gap BUN Creatinine Est GFR ( Amer) Est GFR (Non-Af Amer) POC Glucose (mg/dL) 130 H Random Glucose Calcium Phosphorus Magnesium Total Bilirubin AST ALT Alkaline Phosphatase Troponin I Total Protein Albumin Globulin Albumin/Globulin Ratio Influenza Typ A,B (EIA) Negative for flu a/b Blood Type Antibody Screen BBK History Checked 06/07/17 06/07/17 06/07/17 00:03 01:01 04:20 WBC 3.4 L RBC 3.15 L Hgb 9.9 L Hct 29.7 L MCV 94.2 D MCH 31.3 H MCHC 33.2 RDW 18.2 H Plt Count 184 MPV 8.0 Neut % (Auto) 41.8 L Lymph % (Auto) 39.1 [place] % (Auto) 10.8 H Eos % (Auto) 7.1 H Baso % (Auto) 1.2 Neut # (Auto) 1.4 L Lymph # (Auto) 1.3 [place] # (Auto) 0.4 Eos # (Auto) 0.2 Baso # (Auto) 0.0 PT INR APTT Sodium Potassium Chloride Carbon Dioxide Anion Gap BUN Creatinine Est GFR ( Amer) Est GFR (Non-Af Amer) POC Glucose (mg/dL) 248 H 239 H Random Glucose Calcium Phosphorus Magnesium Total Bilirubin AST ALT Alkaline Phosphatase Troponin I Total Protein Albumin Globulin Albumin/Globulin Ratio Influenza Typ A,B (EIA) Blood Type Antibody Screen BBK History Checked 06/07/17 06/07/17 04:20 07:13 WBC RBC Hgb Hct MCV MCH MCHC RDW Plt Count MPV Neut % (Auto) Lymph % (Auto) [place] % (Auto) Eos % (Auto) Baso % (Auto) Neut # (Auto) Lymph # (Auto) [place] # (Auto) Eos # (Auto) Baso # (Auto) PT INR APTT Sodium 140 Potassium 4.3 Chloride 99 Carbon Dioxide 28 Anion Gap 17 BUN 30 H Creatinine 4.6 H Est GFR ( Amer) 11 Est GFR (Non-Af Amer) 9 POC Glucose (mg/dL) 81 Random Glucose 87 Calcium 9.0 Phosphorus Magnesium Total Bilirubin 0.5 AST 27 ALT 32 Alkaline Phosphatase 67 Troponin I 0.0170 Total Protein 6.5 Albumin 3.6 Globulin 2.8 Albumin/Globulin Ratio 1.3 Influenza Typ A,B (EIA) Blood Type Antibody Screen BBK History Checked Assessment & Plan (1) Near syncope Assessment and Plan: cardio/neuro Status: Acute (2) CKD (chronic kidney disease) requiring chronic dialysis Assessment and Plan: npehro dialysis schedule mwf Status: Acute (3) DVT prophylaxis Assessment and Plan: scd and ae hose holdanticoag until imaging studies completed Status: Acute (4) Diabetes type 2, uncontrolled Assessment and Plan: fsbg, home meds diet control Status: Acute (5) Weakness Assessment and Plan: mri brain and cartoid us. Status: Acute - Assessment and Plan (Free Text) Assessment: [place] valenzuela pt and did not find any muscle weakness or parestheisas. will get imaging stat Decision To Admit - Pt Status Changed To: Hospital Disposition Of: Observation - . Bed Request Type: Telemetry Admitting Physician: Mohit Cali
[2017-06-07] MEDS ORDERED: Lidocaine/Prilocaine CREAM 5GM TP SCH (09:00)
[2017-06-07] MEDS ORDERED: APPL TOP SCH (09:00)
[2017-06-07] MEDS ORDERED: DICLOFENAC SODIUM APPL TOP SCH (09:00)
[2017-06-07] MEDS ORDERED: [UNRECOGNIZED DRUG - OTHER] TOP SCH (09:00)
[2017-06-07] MEDS ORDERED: CICLOPIROX TOP SCH (09:00)
[2017-06-07] MEDS ORDERED: EUC TOP SCH (09:00)
[2017-06-07] MEDS ORDERED: MENTH TOP SCH (09:00)
[2017-06-07] MEDS ORDERED: CAMPH TOP SCH (09:00)
--- NOTE | 2017-06-07 11:42 | CP.PCM.CON ---
History of Present Illness - History of Present Illness History of Present Illness: patient seen/examined. full consult to follow. EKG shoes SRS with RBBB. admitted for near syncope. recommend follow up carotids. no events on telemetry thus far. Patietn can be discharged with outpatient holter monitoring and stress test. Past Patient History - Past Medical History & Family History Past Medical History?: Yes - Past Social History Smoking Status: Former Smoker - CARDIAC Hx Congestive Heart Failure: No Hx Hypercholesterolemia: Yes Hx Hypertension: Yes - PULMONARY Hx Chronic Obstructive Pulmonary Disease (COPD): No Hx Pneumonia: Yes - NEUROLOGICAL HX Cerebrovascular Accident: No - HEENT Hx HEENT Problems: No - RENAL Hx Chronic Kidney Disease: Yes (HD M/W/F) Type of Dialysis Access: left AV shunt Date of Last Dialysis Treatment: 06/06/17 - ENDOCRINE/METABOLIC Hx Diabetes Mellitus Type 2: Yes Hx Hypothyroidism: No - HEMATOLOGICAL/ONCOLOGICAL Hx Anemia: Yes Hx Human Immunodeficiency Virus (HIV): No - INTEGUMENTARY Hx Dermatological Problems: No - MUSCULOSKELETAL/RHEUMATOLOGICAL Hx Arthritis: Yes Hx Falls: Yes Hx Rheumatoid Arthritis: Yes Hx Unsteady Gait: Yes - GASTROINTESTINAL Hx Gastrointestinal Disorders: No - GENITOURINARY/GYNECOLOGICAL Hx Genitourinary Disorders: No - PSYCHIATRIC Hx Substance Use: No - SURGICAL HISTORY Hx Appendectomy: Yes Hx Cholecystectomy: Yes Hx Coronary Stent: Yes Hx Herniorrhaphy: Yes - ANESTHESIA Hx Anesthesia: Yes Hx Anesthesia Reactions: No Hx Malignant Hyperthermia: No Meds Allergies/Adverse Reactions: Allergies Allergy/AdvReac Type Severity Reaction Status Date / Time No Known Allergies Allergy Verified 06/13/16 15:16 - Medications Medications: Current Medications Amlodipine Besylate (Norvasc) 10 mg PO DAILY [facility] Last Admin: 06/07/17 09:47 Dose: 10 mg Aspirin (Aspirin Chewable) 81 mg PO DAILY [facility] Last Admin: 06/07/17 09:43 Dose: 81 mg Ferrous Sulfate (Feosol) 325 mg PO DAILY [facility] Last Admin: 06/07/17 09:43 Dose: 325 mg Gabapentin (Neurontin) 300 mg PO DAILY [facility] Last Admin: 06/07/17 09:47 Dose: 300 mg Home Med (Ciclopirox/Ure/Camph/Menth/Euc [Ciclopirox 8% Treatment Kit]) 1 appl TOP BID [facility] Home Med (Diclofenac Sodium [Diclo Gel]) 1 appl TOP BID [facility] Home Med (Raloxifene [Evista]) 60 mg PO DAILY [facility] Isosorbide Dinitrate (Isordil) 30 mg PO DAILY [facility] Last Admin: 06/07/17 09:44 Dose: 30 mg Lidocaine/Prilocaine (Lidocaine/Prilocaine 2.5%-2.5%) 1 applic TP BID [facility] Lisinopril (Zestril) 10 mg PO DAILY [facility] Last Admin: 06/07/17 09:48 Dose: 10 mg Naproxen (Naprosyn Tab) 250 mg PO BID [facility] Last Admin: 06/07/17 09:44 Dose: 250 mg Oxycodone/Acetaminophen (Percocet 5/325 Mg Tab) 1 tab PO Q4 PRN PRN Reason: Pain, severe (8-10) Stop: 06/09/17 21:54 Sevelamer HCl (Renagel) 800 mg PO DAILY [facility] Last Admin: 06/07/17 09:48 Dose: 800 mg Temazepam (Restoril) 30 mg PO HS [facility] Tramadol HCl (Ultram) 50 mg PO Q6 PRN PRN Reason: Pain, moderate (4-7) Results - Vital Signs Recent Vital Signs: Last Vital Signs Temp 97.2 F L 06/07/17 08:00 Pulse 77 06/07/17 09:48 Resp 18 06/07/17 08:00 BP 145/66 06/07/17 09:48 Pulse Ox 98 06/07/17 08:00 - Labs Result Diagrams: 06/07/17 04:20 06/07/17 04:20 Labs: Laboratory Results - last 24 hr 06/06/17 06/06/17 06/06/17 19:20 19:24 19:24 WBC 2.9 L RBC 3.44 L Hgb 10.5 L Hct 33.3 L MCV 96.6 D MCH 30.5 MCHC 31.5 L RDW 18.9 H Plt Count 181 MPV 8.1 Neut % (Auto) 52.7 Lymph % (Auto) 29.9 Fisher % (Auto) 9.2 Eos % (Auto) 6.8 H Baso % (Auto) 1.4 Neut # (Auto) 1.5 L Lymph # (Auto) 0.9 L Fisher # (Auto) 0.3 Eos # (Auto) 0.2 Baso # (Auto) 0.0 PT INR APTT Sodium 138 Potassium 4.4 Chloride 99 Carbon Dioxide 26 Anion Gap 17 BUN 24 H Creatinine 3.8 H Est GFR ( Amer) 14 Est GFR (Non-Af Amer) 12 POC Glucose (mg/dL) Random Glucose 147 H Calcium 9.3 Phosphorus 3.3 Magnesium 2.3 Total Bilirubin 0.7 AST 41 H D ALT 32 Alkaline Phosphatase 82 Troponin I < 0.0120 Total Protein 7.6 Albumin 4.3 Globulin 3.2 Albumin/Globulin Ratio 1.3 Influenza Typ A,B (EIA) Blood Type A POSITIVE Antibody Screen Negative BBK History Checked Patient has bt 06/06/17 06/06/17 06/06/17 19:24 19:24 19:30 WBC RBC Hgb Hct MCV MCH MCHC RDW Plt Count MPV Neut % (Auto) Lymph % (Auto) Fisher % (Auto) Eos % (Auto) Baso % (Auto) Neut # (Auto) Lymph # (Auto) Fisher # (Auto) Eos # (Auto) Baso # (Auto) PT 10.5 INR 1.0 APTT 31.7 Sodium Potassium Chloride Carbon Dioxide Anion Gap BUN Creatinine Est GFR ( Amer) Est GFR (Non-Af Amer) POC Glucose (mg/dL) 130 H Random Glucose Calcium Phosphorus Magnesium Total Bilirubin AST ALT Alkaline Phosphatase Troponin I Total Protein Albumin Globulin Albumin/Globulin Ratio Influenza Typ A,B (EIA) Negative for flu a/b Blood Type Antibody Screen BBK History Checked 06/07/17 06/07/17 06/07/17 00:03 01:01 04:20 WBC 3.4 L RBC 3.15 L Hgb 9.9 L Hct 29.7 L MCV 94.2 D MCH 31.3 H MCHC 33.2 RDW 18.2 H Plt Count 184 MPV 8.0 Neut % (Auto) 41.8 L Lymph % (Auto) 39.1 Fisher % (Auto) 10.8 H Eos % (Auto) 7.1 H Baso % (Auto) 1.2 Neut # (Auto) 1.4 L Lymph # (Auto) 1.3 Fisher # (Auto) 0.4 Eos # (Auto) 0.2 Baso # (Auto) 0.0 PT INR APTT Sodium Potassium Chloride Carbon Dioxide Anion Gap BUN Creatinine Est GFR ( Amer) Est GFR (Non-Af Amer) POC Glucose (mg/dL) 248 H 239 H Random Glucose Calcium Phosphorus Magnesium Total Bilirubin AST ALT Alkaline Phosphatase Troponin I Total Protein Albumin Globulin Albumin/Globulin Ratio Influenza Typ A,B (EIA) Blood Type Antibody Screen BBK History Checked 06/07/17 06/07/17 04:20 07:13 WBC RBC Hgb Hct MCV MCH MCHC RDW Plt Count MPV Neut % (Auto) Lymph % (Auto) Fisher % (Auto) Eos % (Auto) Baso % (Auto) Neut # (Auto) Lymph # (Auto) Fisher # (Auto) Eos # (Auto) Baso # (Auto) PT INR APTT Sodium 140 Potassium 4.3 Chloride 99 Carbon Dioxide 28 Anion Gap 17 BUN 30 H Creatinine 4.6 H Est GFR ( Amer) 11 Est GFR (Non-Af Amer) 9 POC Glucose (mg/dL) 81 Random Glucose 87 Calcium 9.0 Phosphorus Magnesium Total Bilirubin 0.5 AST 27 ALT 32 Alkaline Phosphatase 67 Troponin I 0.0170 Total Protein 6.5 Albumin 3.6 Globulin 2.8 Albumin/Globulin Ratio 1.3 Influenza Typ A,B (EIA) Blood Type Antibody Screen BBK History Checked
--- NOTE | 2017-06-07 11:43 | CP.PCM.CON ---
Past Patient History - Past Medical History & Family History Past Medical History?: Yes - Past Social History Smoking Status: Former Smoker - CARDIAC Hx Congestive Heart Failure: No Hx Hypercholesterolemia: Yes Hx Hypertension: Yes - PULMONARY Hx Chronic Obstructive Pulmonary Disease (COPD): No Hx Pneumonia: Yes - NEUROLOGICAL HX Cerebrovascular Accident: No - HEENT Hx HEENT Problems: No - RENAL Hx Chronic Kidney Disease: Yes (HD M/W/F) Type of Dialysis Access: left AV shunt Date of Last Dialysis Treatment: 06/06/17 - ENDOCRINE/METABOLIC Hx Diabetes Mellitus Type 2: Yes Hx Hypothyroidism: No - HEMATOLOGICAL/ONCOLOGICAL Hx Anemia: Yes Hx Human Immunodeficiency Virus (HIV): No - INTEGUMENTARY Hx Dermatological Problems: No - MUSCULOSKELETAL/RHEUMATOLOGICAL Hx Arthritis: Yes Hx Falls: Yes Hx Rheumatoid Arthritis: Yes Hx Unsteady Gait: Yes - GASTROINTESTINAL Hx Gastrointestinal Disorders: No - GENITOURINARY/GYNECOLOGICAL Hx Genitourinary Disorders: No - PSYCHIATRIC Hx Substance Use: No - SURGICAL HISTORY Hx Appendectomy: Yes Hx Cholecystectomy: Yes Hx Coronary Stent: Yes Hx Herniorrhaphy: Yes - ANESTHESIA Hx Anesthesia: Yes Hx Anesthesia Reactions: No Hx Malignant Hyperthermia: No Meds Allergies/Adverse Reactions: Allergies Allergy/AdvReac Type Severity Reaction Status Date / Time No Known Allergies Allergy Verified 06/13/16 15:16 - Medications Medications: Current Medications Amlodipine Besylate (Norvasc) 10 mg PO DAILY [facility] Last Admin: 06/07/17 09:47 Dose: 10 mg Aspirin (Aspirin Chewable) 81 mg PO DAILY [facility] Last Admin: 06/07/17 09:43 Dose: 81 mg Ferrous Sulfate (Feosol) 325 mg PO DAILY [facility] Last Admin: 06/07/17 09:43 Dose: 325 mg Gabapentin (Neurontin) 300 mg PO DAILY [facility] Last Admin: 06/07/17 09:47 Dose: 300 mg Home Med (Ciclopirox/Ure/Camph/Menth/Euc [Ciclopirox 8% Treatment Kit]) 1 appl TOP BID [facility] Home Med (Diclofenac Sodium [Diclo Gel]) 1 appl TOP BID [facility] Home Med (Raloxifene [Evista]) 60 mg PO DAILY [facility] Isosorbide Dinitrate (Isordil) 30 mg PO DAILY [facility] Last Admin: 06/07/17 09:44 Dose: 30 mg Lidocaine/Prilocaine (Lidocaine/Prilocaine 2.5%-2.5%) 1 applic TP BID [facility] Lisinopril (Zestril) 10 mg PO DAILY [facility] Last Admin: 06/07/17 09:48 Dose: 10 mg Naproxen (Naprosyn Tab) 250 mg PO BID [facility] Last Admin: 06/07/17 09:44 Dose: 250 mg Oxycodone/Acetaminophen (Percocet 5/325 Mg Tab) 1 tab PO Q4 PRN PRN Reason: Pain, severe (8-10) Stop: 06/09/17 21:54 Sevelamer HCl (Renagel) 800 mg PO DAILY [facility] Last Admin: 06/07/17 09:48 Dose: 800 mg Temazepam (Restoril) 30 mg PO HS [facility] Tramadol HCl (Ultram) 50 mg PO Q6 PRN PRN Reason: Pain, moderate (4-7) Results - Vital Signs Recent Vital Signs: Last Vital Signs Temp 97.2 F L 06/07/17 08:00 Pulse 77 06/07/17 09:48 Resp 18 06/07/17 08:00 BP 145/66 06/07/17 09:48 Pulse Ox 98 06/07/17 08:00 - Labs Result Diagrams: 06/07/17 04:20 06/07/17 04:20 Labs: Laboratory Results - last 24 hr 06/06/17 06/06/17 06/06/17 19:20 19:24 19:24 WBC 2.9 L RBC 3.44 L Hgb 10.5 L Hct 33.3 L MCV 96.6 D MCH 30.5 MCHC 31.5 L RDW 18.9 H Plt Count 181 MPV 8.1 Neut % (Auto) 52.7 Lymph % (Auto) 29.9 Hanson % (Auto) 9.2 Eos % (Auto) 6.8 H Baso % (Auto) 1.4 Neut # (Auto) 1.5 L Lymph # (Auto) 0.9 L Hanson # (Auto) 0.3 Eos # (Auto) 0.2 Baso # (Auto) 0.0 PT INR APTT Sodium 138 Potassium 4.4 Chloride 99 Carbon Dioxide 26 Anion Gap 17 BUN 24 H Creatinine 3.8 H Est GFR ( Amer) 14 Est GFR (Non-Af Amer) 12 POC Glucose (mg/dL) Random Glucose 147 H Calcium 9.3 Phosphorus 3.3 Magnesium 2.3 Total Bilirubin 0.7 AST 41 H D ALT 32 Alkaline Phosphatase 82 Troponin I < 0.0120 Total Protein 7.6 Albumin 4.3 Globulin 3.2 Albumin/Globulin Ratio 1.3 Influenza Typ A,B (EIA) Blood Type A POSITIVE Antibody Screen Negative BBK History Checked Patient has bt 06/06/17 06/06/17 06/06/17 19:24 19:24 19:30 WBC RBC Hgb Hct MCV MCH MCHC RDW Plt Count MPV Neut % (Auto) Lymph % (Auto) Hanson % (Auto) Eos % (Auto) Baso % (Auto) Neut # (Auto) Lymph # (Auto) Hanson # (Auto) Eos # (Auto) Baso # (Auto) PT 10.5 INR 1.0 APTT 31.7 Sodium Potassium Chloride Carbon Dioxide Anion Gap BUN Creatinine Est GFR ( Amer) Est GFR (Non-Af Amer) POC Glucose (mg/dL) 130 H Random Glucose Calcium Phosphorus Magnesium Total Bilirubin AST ALT Alkaline Phosphatase Troponin I Total Protein Albumin Globulin Albumin/Globulin Ratio Influenza Typ A,B (EIA) Negative for flu a/b Blood Type Antibody Screen BBK History Checked 06/07/17 06/07/17 06/07/17 00:03 01:01 04:20 WBC 3.4 L RBC 3.15 L Hgb 9.9 L Hct 29.7 L MCV 94.2 D MCH 31.3 H MCHC 33.2 RDW 18.2 H Plt Count 184 MPV 8.0 Neut % (Auto) 41.8 L Lymph % (Auto) 39.1 Hanson % (Auto) 10.8 H Eos % (Auto) 7.1 H Baso % (Auto) 1.2 Neut # (Auto) 1.4 L Lymph # (Auto) 1.3 Hanson # (Auto) 0.4 Eos # (Auto) 0.2 Baso # (Auto) 0.0 PT INR APTT Sodium Potassium Chloride Carbon Dioxide Anion Gap BUN Creatinine Est GFR ( Amer) Est GFR (Non-Af Amer) POC Glucose (mg/dL) 248 H 239 H Random Glucose Calcium Phosphorus Magnesium Total Bilirubin AST ALT Alkaline Phosphatase Troponin I Total Protein Albumin Globulin Albumin/Globulin Ratio Influenza Typ A,B (EIA) Blood Type Antibody Screen BBK History Checked 06/07/17 06/07/17 04:20 07:13 WBC RBC Hgb Hct MCV MCH MCHC RDW Plt Count MPV Neut % (Auto) Lymph % (Auto) Hanson % (Auto) Eos % (Auto) Baso % (Auto) Neut # (Auto) Lymph # (Auto) Hanson # (Auto) Eos # (Auto) Baso # (Auto) PT INR APTT Sodium 140 Potassium 4.3 Chloride 99 Carbon Dioxide 28 Anion Gap 17 BUN 30 H Creatinine 4.6 H Est GFR ( Amer) 11 Est GFR (Non-Af Amer) 9 POC Glucose (mg/dL) 81 Random Glucose 87 Calcium 9.0 Phosphorus Magnesium Total Bilirubin 0.5 AST 27 ALT 32 Alkaline Phosphatase 67 Troponin I 0.0170 Total Protein 6.5 Albumin 3.6 Globulin 2.8 Albumin/Globulin Ratio 1.3 Influenza Typ A,B (EIA) Blood Type Antibody Screen BBK History Checked
--- NOTE | 2017-06-07 12:03 | US ---
PROCEDURE: Duplex ultrasound of the carotid and vertebral arteries. HISTORY: R sided weakness, L carotid bruit/thrill COMPARISON: None available. TECHNIQUE: Grayscale and duplex Doppler evaluation of the cervical carotid and vertebral arteries were performed. The common carotid, carotid bifurcations and cervical ICA and proximal ECA were evaluated. The vertebral arteries were evaluated for gross patency and direction. FINDINGS: RIGHT CAROTID ARTERIES: Common Carotid Artery: Calcific and noncalcific plaque. Maximal flow velocity of 108.8 cm/s. Carotid Bifurcation: Calcific and noncalcific plaque. Internal Carotid Artery:Calcific and noncalcific plaque. Maximal flow velocity of 116.0 cm/s. External Carotid Artery (proximal branches): Calcific and noncalcific plaque. Maximal flow velocity of 106.2 cm/s. ICA/CCA Ratio: 1.1 LEFT CAROTID ARTERIES: Common Carotid Artery: Calcific and noncalcific plaque. Maximal flow velocity of 116.8 cm/s. Carotid Bifurcation: Calcific and noncalcific plaque. Internal Carotid Artery:Calcific and noncalcific plaque. Maximal flow velocity of 104.2 cm/s. External Carotid Artery (proximal branches): Calcific and noncalcific plaque. Maximal flow velocity of 104.2 cm/s. ICA/CCA Ratio: 0.9 VERTEBRAL ARTERIES: Right Vertebral Artery: Patent. Antegrade flow. Left Vertebral Artery: Bidirectional flow. OTHER FINDINGS: Right thyroid nodule IMPRESSION: Per NASCET criteria, less than 50 percent stenosis of the internal carotid arteries bilaterally. Bidirectional flow of left vertebral artery, nonspecific. Right thyroid nodule. Dedicated thyroid ultrasound can be obtained for further evaluation as clinically warranted.
[2017-06-07 12:30] VITALS: O2SAT 99
--- NOTE | 2017-06-07 13:08 | MRI ---
PROCEDURE: MRI BRAIN WITHOUT CONTRAST HISTORY: R sided weakness COMPARISON: None. TECHNIQUE: Multiplanar, multisequence MR images of the brain were obtained without intravenous contrast enhancement. FINDINGS: HEMORRHAGE: None DWI: No evidence of an acute or early subacute infarction. BRAIN PARENCHYMA: Good corticomedullary differentiation is seen. Diffuse expansion of the ventriculosulcal and cisternal spaces is appreciated with white matter signal changes compatible with diffuse cerebral atrophy and chronic microangiopathy. Multiple chronic left lacunar infarcts are identified and minimally at the right thalamus. No suspicious extra-axial fluid collection is identified and the midline brain anatomy appears grossly nonfocal as imaged. There is no mass effect throughout. VENTRICLES: Unremarkable. No hydrocephalus. CRANIUM: Unremarkable. ORBITS: Grossly unremarkable. PARANASAL SINUSES/MASTOIDS: Clear VASCULAR SYSTEM: Skull base flow voids intact. OTHER FINDINGS: None. IMPRESSION: No acute intracranial findings. Chronic lacune is are identified in the left basal ganglia and right thalamus and reiteration of age related neuro degenerative changes also identified.
--- NOTE | 2017-06-07 15:13 | CP.PCM.CON ---
History of Present Illness - History of Present Illness History of Present Illness: renal consult note 72 yr old with htn, esrd on hd mwf, dm is admitted with dizziness episode post hd. denies any nausea or vomiting. no sob no missed hd sessions ros: complete ros i snegative except for those above pmh: JHTN. ESRD ,DM-2 non smoker no alcohol Review of Systems - Review of Systems All systems: reviewed and no additional remarkable complaints except Past Patient History - Past Medical History & Family History Past Medical History?: Yes - Past Social History Smoking Status: Former Smoker - CARDIAC Hx Congestive Heart Failure: No Hx Hypercholesterolemia: Yes Hx Hypertension: Yes - PULMONARY Hx Chronic Obstructive Pulmonary Disease (COPD): No Hx Pneumonia: Yes - NEUROLOGICAL HX Cerebrovascular Accident: No - HEENT Hx HEENT Problems: No - RENAL Hx Chronic Kidney Disease: Yes (HD M/W/F) Type of Dialysis Access: left AV shunt Date of Last Dialysis Treatment: 06/06/17 - ENDOCRINE/METABOLIC Hx Diabetes Mellitus Type 2: Yes Hx Hypothyroidism: No - HEMATOLOGICAL/ONCOLOGICAL Hx Anemia: Yes Hx Human Immunodeficiency Virus (HIV): No - INTEGUMENTARY Hx Dermatological Problems: No - MUSCULOSKELETAL/RHEUMATOLOGICAL Hx Arthritis: Yes Hx Falls: Yes Hx Rheumatoid Arthritis: Yes Hx Unsteady Gait: Yes - GASTROINTESTINAL Hx Gastrointestinal Disorders: No - GENITOURINARY/GYNECOLOGICAL Hx Genitourinary Disorders: No - PSYCHIATRIC Hx Substance Use: No - SURGICAL HISTORY Hx Appendectomy: Yes Hx Cholecystectomy: Yes Hx Coronary Stent: Yes Hx Herniorrhaphy: Yes - ANESTHESIA Hx Anesthesia: Yes Hx Anesthesia Reactions: No Hx Malignant Hyperthermia: No Meds Allergies/Adverse Reactions: Allergies Allergy/AdvReac Type Severity Reaction Status Date / Time No Known Allergies Allergy Verified 06/13/16 15:16 - Medications Medications: Current Medications Amlodipine Besylate (Norvasc) 10 mg PO DAILY [facility] Last Admin: 06/07/17 09:47 Dose: 10 mg Aspirin (Aspirin Chewable) 81 mg PO DAILY [facility] Last Admin: 06/07/17 09:43 Dose: 81 mg Ferrous Sulfate (Feosol) 325 mg PO DAILY [facility] Last Admin: 06/07/17 09:43 Dose: 325 mg Gabapentin (Neurontin) 300 mg PO DAILY [facility] Last Admin: 06/07/17 09:47 Dose: 300 mg Home Med (Ciclopirox/Ure/Camph/Menth/Euc [Ciclopirox 8% Treatment Kit]) 1 appl TOP BID [facility] Home Med (Diclofenac Sodium [Diclo Gel]) 1 appl TOP BID [facility] Home Med (Raloxifene [Evista]) 60 mg PO DAILY [facility] Isosorbide Dinitrate (Isordil) 30 mg PO DAILY [facility] Last Admin: 06/07/17 09:44 Dose: 30 mg Lidocaine/Prilocaine (Lidocaine/Prilocaine 2.5%-2.5%) 1 applic TP BID [facility] Lisinopril (Zestril) 10 mg PO DAILY [facility] Last Admin: 06/07/17 09:48 Dose: 10 mg Naproxen (Naprosyn Tab) 250 mg PO BID [facility] Last Admin: 06/07/17 09:44 Dose: 250 mg Oxycodone/Acetaminophen (Percocet 5/325 Mg Tab) 1 tab PO Q4 PRN PRN Reason: Pain, severe (8-10) Stop: 06/09/17 21:54 Sevelamer HCl (Renagel) 800 mg PO DAILY [facility] Last Admin: 06/07/17 09:48 Dose: 800 mg Temazepam (Restoril) 30 mg PO HS [facility] Tramadol HCl (Ultram) 50 mg PO Q6 PRN PRN Reason: Pain, moderate (4-7) Physical Exam - Constitutional Appears: Non-toxic, No Acute Distress - Head Exam Head Exam: NORMAL INSPECTION - Eye Exam Eye Exam: Normal appearance - ENT Exam ENT Exam: Mucous Membranes Moist - Respiratory Exam Respiratory Exam: NORMAL BREATHING PATTERN - Cardiovascular Exam Cardiovascular Exam: +S1, +S2 - GI/Abdominal Exam GI & Abdominal Exam: Normal Bowel Sounds, Soft - Extremities Exam Extremities exam: Positive for: normal inspection - Neurological Exam Neurological exam: Alert, Oriented x3 - Psychiatric Exam Psychiatric exam: Normal Mood Results - Vital Signs Recent Vital Signs: Last Vital Signs Temp 97.5 F L 06/07/17 12:30 Pulse 64 06/07/17 12:30 Resp 18 06/07/17 12:30 BP 131/65 06/07/17 12:30 Pulse Ox 99 06/07/17 12:30 - Labs Result Diagrams: 06/07/17 04:20 06/07/17 04:20 Labs: Laboratory Results - last 24 hr 06/06/17 06/06/17 06/06/17 19:20 19:24 19:24 WBC 2.9 L RBC 3.44 L Hgb 10.5 L Hct 33.3 L MCV 96.6 D MCH 30.5 MCHC 31.5 L RDW 18.9 H Plt Count 181 MPV 8.1 Neut % (Auto) 52.7 Lymph % (Auto) 29.9 Geary % (Auto) 9.2 Eos % (Auto) 6.8 H Baso % (Auto) 1.4 Neut # (Auto) 1.5 L Lymph # (Auto) 0.9 L Geary # (Auto) 0.3 Eos # (Auto) 0.2 Baso # (Auto) 0.0 PT INR APTT Sodium 138 Potassium 4.4 Chloride 99 Carbon Dioxide 26 Anion Gap 17 BUN 24 H Creatinine 3.8 H Est GFR ( Amer) 14 Est GFR (Non-Af Amer) 12 POC Glucose (mg/dL) Random Glucose 147 H Calcium 9.3 Phosphorus 3.3 Magnesium 2.3 Total Bilirubin 0.7 AST 41 H D ALT 32 Alkaline Phosphatase 82 Troponin I < 0.0120 Total Protein 7.6 Albumin 4.3 Globulin 3.2 Albumin/Globulin Ratio 1.3 Influenza Typ A,B (EIA) Blood Type A POSITIVE Antibody Screen Negative BBK History Checked Patient has bt 06/06/17 06/06/17 06/06/17 19:24 19:24 19:30 WBC RBC Hgb Hct MCV MCH MCHC RDW Plt Count MPV Neut % (Auto) Lymph % (Auto) Geary % (Auto) Eos % (Auto) Baso % (Auto) Neut # (Auto) Lymph # (Auto) Geary # (Auto) Eos # (Auto) Baso # (Auto) PT 10.5 INR 1.0 APTT 31.7 Sodium Potassium Chloride Carbon Dioxide Anion Gap BUN Creatinine Est GFR ( Amer) Est GFR (Non-Af Amer) POC Glucose (mg/dL) 130 H Random Glucose Calcium Phosphorus Magnesium Total Bilirubin AST ALT Alkaline Phosphatase Troponin I Total Protein Albumin Globulin Albumin/Globulin Ratio Influenza Typ A,B (EIA) Negative for flu a/b Blood Type Antibody Screen BBK History Checked 06/07/17 06/07/17 06/07/17 00:03 01:01 04:20 WBC 3.4 L RBC 3.15 L Hgb 9.9 L Hct 29.7 L MCV 94.2 D MCH 31.3 H MCHC 33.2 RDW 18.2 H Plt Count 184 MPV 8.0 Neut % (Auto) 41.8 L Lymph % (Auto) 39.1 Geary % (Auto) 10.8 H Eos % (Auto) 7.1 H Baso % (Auto) 1.2 Neut # (Auto) 1.4 L Lymph # (Auto) 1.3 Geary # (Auto) 0.4 Eos # (Auto) 0.2 Baso # (Auto) 0.0 PT INR APTT Sodium Potassium Chloride Carbon Dioxide Anion Gap BUN Creatinine Est GFR ( Amer) Est GFR (Non-Af Amer) POC Glucose (mg/dL) 248 H 239 H Random Glucose Calcium Phosphorus Magnesium Total Bilirubin AST ALT Alkaline Phosphatase Troponin I Total Protein Albumin Globulin Albumin/Globulin Ratio Influenza Typ A,B (EIA) Blood Type Antibody Screen BBK History Checked 06/07/17 06/07/17 06/07/17 04:20 07:13 12:26 WBC RBC Hgb Hct MCV MCH MCHC RDW Plt Count MPV Neut % (Auto) Lymph % (Auto) Geary % (Auto) Eos % (Auto) Baso % (Auto) Neut # (Auto) Lymph # (Auto) Geary # (Auto) Eos # (Auto) Baso # (Auto) PT INR APTT Sodium 140 Potassium 4.3 Chloride 99 Carbon Dioxide 28 Anion Gap 17 BUN 30 H Creatinine 4.6 H Est GFR ( Amer) 11 Est GFR (Non-Af Amer) 9 POC Glucose (mg/dL) 81 270 H Random Glucose 87 Calcium 9.0 Phosphorus Magnesium Total Bilirubin 0.5 AST 27 ALT 32 Alkaline Phosphatase 67 Troponin I 0.0170 Total Protein 6.5 Albumin 3.6 Globulin 2.8 Albumin/Globulin Ratio 1.3 Influenza Typ A,B (EIA) Blood Type Antibody Screen BBK History Checked Assessment & Plan - Assessment and Plan (Free Text) Plan: ESRD/HTN/DM/syncope/anemia hd mwf, done yesterday continue per schedule no needs for hd today lytes ok bp continue home meds contiue binders and monitor phos levels syncope: cards on board
[2017-06-07] MEDS ORDERED: Insulin Lispro (humaLOG) 100 Units/ml Inj SC SCH (15:30)
[2017-06-07 16:16] VITALS: BP 151/65; PULSE 65; RESP 20; TEMP 97.4
--- NOTE | 2017-06-07 18:06 | CON ---
NEUROLOGY CONSULT DATE: 06/07/2017 CHIEF COMPLAINT: Dizziness and questionable weakness. HISTORY OF PRESENT ILLNESS: This is a 72-year-old woman with past medical history of hypertension, end-stage renal disease on hemodialysis, on Tuesday, Tuesday and Tuesday; type 2 diabetes mellitus who was admitted for dizziness/lightheadedness post hemodialysis with some generalized weakness, most likely some right-sided weakness and questionable left carotid bruit. Carotid Doppler showed no significant hemodynamic stenosis, less than 50%. MRI of the brain showed no acute intracranial abnormality just chronic lacunar infarcts in the left basal ganglia related neurogenic changes. She is doing much better. She is following commands. No pronator drift seen. PAST MEDICAL HISTORY: Hypertension, dyslipidemia, end-stage renal disease on hemodialysis and type 2 diabetes mellitus. FAMILY HISTORY: Noncontributory. SOCIAL HISTORY: No illicit drug use, smoking or EtOH abuse. ALLERGIES: NO KNOWN DRUG ALLERGIES. MEDICATIONS: Reviewed by nurse reconciliation sheet. REVIEW OF SYSTEMS: A 14-point review of system is negative except in the HPI. PHYSICAL EXAMINATION: VITAL SIGNS: Temperature 97, pulse rate 64, blood pressure 131/65, respiratory rate 18 and oxygen saturation 99% by room air. GENERAL: The patient is sitting up in bed, in no acute distress. HEENT: Atraumatic and normocephalic. PERRLA. Extraocular muscles intact. NECK: Supple. No JVD. No adenopathy noted. LUNGS: Clear to auscultation. No adventitious sounds. HEART: S1 and S2, normal rate and rhythm. No murmurs, rubs or gallops. ABDOMEN: Soft, nontender and nondistended. Bowel sounds present. EXTREMITIES: No clubbing. No cyanosis. Peripheral pulses 2+ felt bilaterally. NEUROLOGIC: The patient is alert and oriented to person, place, month, and year. Speech is fluent without any errors. Cranial nerves II through XII intact. Motor exam: Moves all extremities equally. No pronator drift seen. Sensory exam: Decreased light touch and pinprick up to the calves bilaterally. Decreased vibration of the toes. DTRs are 2+ throughout and 1 at the both knees and ankles. Coordination: [id number] intact. No dysmetria noted. Gait is deferred for now. LABORATORY DATA: Sodium of 140, potassium of 4.3, chloride of 99, carbon dioxide of 28, BUN of 30, creatinine of 4.6 and random glucose of 81. ASSESSMENT AND PLAN: This is a 72-year-old woman history of dyslipidemia, hypertension, end-stage renal disease on hemodialysis Tuesday, Tuesday and Tuesday, type 2 diabetes mellitus who had dizziness and near syncopal symptoms, status post hemodialysis most likely secondary to transient cerebral hypoperfusion with inducing generalized weakness and near syncope. MRI of the brain showed no acute intracranial abnormalities, chronic ischemic changes, old scattered lacunar infarcts. Her carotid ultrasound showed no significant hemodynamic stenosis and shows clinically stable from my standpoint. RECOMMENDATIONS: 1. Recommend aspirin 81 mg and Lipitor 20 for stroke prevention. 2. Keep blood sugars between 140 to 180. 3. Monitor electrolytes and correct accordingly. Follow her primary care doctor. Thank you for this consult. Petey Silva MD
[2017-06-07 18:12] LABS: SQUAMOUS EPITHIAL 11 /hpf (0-5); URINE BACTERIA MANY (<OCC); URINE BILIRUBIN NEGATIVE (NEGATIVE); URINE BLOOD NEGATIVE (NEGATIVE); URINE CLARITY CLOUDY (Clear); URINE COLOR AMBER (YELLOW); URINE GLUCOSE (UA) NEG (Normal); URINE LEUKOCYTE ESTERASE LARGE Leu/uL (Negative); URINE PROTEIN 100 mg/dL (NEGATIVE); URINE UROBILINOGEN 0.2-1.0 mg/dL (0.2-1.0)
--- NOTE | 2017-06-07 21:23 | CARD ---
APPROVED REPORT EKG Measurement Heart [id number] [id number] <Conclusion> Sinus rhythm with 1st degree AV block Left axis deviation Right bundle branch block Abnormal ECG
== END 2017-06-07 17:30 | disposition home or self-care (01) ==
LOC: H.ER 18:25 → H.ERHOLD 21:23 → H.TEL 06-07 02:21
PROVIDERS: ADMIT Family Medicine; ATTEND Family Medicine
DX: R55 Syncope and collapse (principal); R53.1 Weakness; I12.0 Hypertensive chronic kidney disease with stage 5 chronic kidney disease or end stage renal disease; N18.6 End stage renal disease; I25.10 Atherosclerotic heart disease of native coronary artery without angina pectoris; Z95.5 Presence of coronary angioplasty implant and graft; Z99.2 Dependence on renal dialysis; Z87.891 Personal history of nicotine dependence; E11.22 Type 2 diabetes mellitus with diabetic chronic kidney disease; E11.65 Type 2 diabetes mellitus with hyperglycemia; E78.00 Pure hypercholesterolemia, unspecified; E78.5 Hyperlipidemia, unspecified; M19.90 Unspecified osteoarthritis, unspecified site; D64.9 Anemia, unspecified
CPT/HCPCS: 36415; 70450; 70551; 80053; 81003; 82948; 83735; 84100; 84484; 85025; 85610; 85730; 86850; 86900; 87040; 87086; 87804; 93005; 93880; 96372; 99285; G0378

== ENCOUNTER 2017-10-09 20:29 | Emergency (ER) | payer OTHER ==
[2017-10-09 20:29] VITALS: BMI 23.0
[2017-10-09 20:43] VITALS: BP 122/57; PULSE 70; RESP 16; TEMP 98.3; O2SAT 96
--- NOTE | 2017-10-09 22:22 | ED PDOC ---
HPI: Trauma/Fall - HPI Time Seen by Provider: 10/09/17 20:49 Chief Complaint (Nursing): Trauma Chief Complaint (Provider): Trauma History Per: Patient History/Exam Limitations: no limitations Onset/Duration Of Symptoms: Days (x2) Additional Complaint(s): 72 year old dialysis pt female presents to the ED for evaluation of injuries s/ p a fall. Patient states that yesterday while getting out of her car, she slipped and fell backwards, and now complains of a headache and left elbow pain. Otherwise: (-) worse headache of life, (-) nausea, (-) vomiting, (-) loss of consciousness, (-) neck pain, (-) back pain, (-) fever, (-) numbness, (-) decrease in ROM, (-) other extremity injury. She reports taking Tylenol a few minutes prior to arrival, and Tramadol around 18:00 today. PMD: Jhoan Anthony Past Medical History Reviewed: Historical Data, Nursing Documentation, Vital Signs Vital Signs: Last Vital Signs Temp 98.3 F 10/09/17 20:40 Pulse 70 10/09/17 20:40 Resp 16 10/09/17 20:40 BP 122/57 L 10/09/17 20:40 Pulse Ox 96 10/09/17 20:40 - Medical History PMH: Anemia, Arthritis, CAD, Depression, Diabetes (type II), HTN, Hypercholesterolemia, Pneumonia, End Stage Renal Disease, Chronic Kidney Disease (HD M/W/F), Rheumatoid Arthritis Denies: CHF, COPD, HIV, Hypothyroidism - Surgical History Surgical History: Appendectomy, Cholecystectomy, Coronary Stent - Family History Family History: States: Unknown Family Hx - Social History Ex-Smoker (has not smoked in the last 12 months): Yes Alcohol: None Drugs: Denies - Immunization History Hx Tetanus Toxoid Vaccination: No Hx Influenza Vaccination: No Hx Pneumococcal Vaccination: No - Home Medications Home Medications: Ambulatory Orders Medication Instructions Recorded Aspirin 81 mg PO DAILY 08/09/16 Ferrous Sulfate [Feosol] 325 mg PO DAILY 08/09/16 Gabapentin [Neurontin] 300 mg PO DAILY 08/09/16 Isosorbide Dinitrate 30 mg PO DAILY 08/09/16 Lisinopril [Zestril] 10 mg PO DAILY 08/09/16 Sevelamer Carbonate [Renvela] 800 mg PO DAILY 08/09/16 Temazepam [Restoril] 30 mg PO HS 08/09/16 amLODIPine [Norvasc] 10 mg PO DAILY 08/09/16 Tramadol HCl [Ultram] 50 mg PO PRN PRN 05/19/17 - Allergies Allergies/Adverse Reactions: Allergies Allergy/AdvReac Type Severity Reaction Status Date / Time No Known Allergies Allergy Verified 06/13/16 15:16 Review of Systems ROS Statement: Except As Marked, All Systems Reviewed And Found Negative Constitutional: Negative for: Fever Eyes: Negative for: Other (photophobia) Respiratory: Negative for: Other (URI symptoms) Gastrointestinal: Negative for: Nausea, Vomiting Musculoskeletal: Positive for: Other (left elbow pain). Negative for: Neck Pain , Back Pain Neurological: Positive for: Headache (but not thunderclap, or worst of her life) . Negative for: Other (subjective neurological symptoms; loss of consciousness) Physical Exam - Reviewed Nursing Documentation Reviewed: Yes Vital Signs Reviewed: Yes - Physical Exam Comments: GENERALIZED APPEARANCE: Patient is AAO x 3 in mild painful distress. SKIN: Warm, dry; (-) cyanosis. HEAD: Mild swelling and tenderness of parietal scalp with an abrasion, with no palpable bony defect. EYES: (-) conjunctival pallor, (-) scleral icterus, (-) nystagmus. ENMT: Mucous membranes moist. (-) Moreau's sign. TMs: (-) blood. Nose: (-) tenderness, (-) rhinorrhea. No oral trauma. Pharynx clear. Airway patent: (-) stridor. Full ROM of mandible without pain. NECK: (-) tenderness, (-) stiffness, (-) lymphadenopathy. CHEST AND RESPIRATORY: (-) chest wall tenderness. Lungs: (-) rales, (-) rhonchi , (-) wheezes; breath sounds equal bilaterally. HEART AND CARDIOVASCULAR: (-) irregularity; (-) murmur, (-) gallop. ABDOMEN AND GI: Soft; (-) tenderness. BACK: (-) tenderness. EXTREMITIES: (-) deformity, (+) mild tenderness to the L elbow with FROM and no edema or ecchymosis, (-) limitation of motion. (+) Distal pulses and sensation. NEURO AND PSYCH: GCS=15. Mental status as above. 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 EOMI. (-) facial asymmetry. Tongue and uvula midline. Strength 5/5 in all extremities. No gross sensory deficits. - ECG O2 Sat by Pulse Oximetry: 96 (RA) Pulse Ox Interpretation: Normal Medical Decision Making Medical Decision Making: Plan : - CT head - XR L elbow - Morphine [address] head : FINDINGS: There is a normal-variant cavum septum pellucidum. There is moderate brain parenchymal atrophy. There is chronic microvascular ischemic changes/gliosis in the brain parenchyma. There is a small hypodensity in the left basal ganglia without mass effect or surrounding edema, suggesting a remote lacunar infarction. There is no midline shift or mass effect. There is no evidence of an acute ischemic stroke. There is no intracranial hemorrhage. There is calcification of the arteries. There is posterior scalp contusion. The skull shows no evidence of injury or other acute pathologic processes. IMPRESSION: There is no acute intracranial abnormality. Thank you for allowing us to participate in the care of your patient. Dictated and Authenticated by: Abilio Michelle MD 10/09/2017 10:15 PM Eastern Time ([place] & [place]) XR L elbow : no fracture, no dislocation, as read by PA Patient is requesting pain medication prescription, but per [facility], patient last had 60 tabs of Tramadol prescribed to her on 09/30. On re-evaluation, patient remains AAOx3, in no acute distress. Repeat neuro exam shows no focal findings. Diagnostic results d/w the patient in great detail. Diagnosis of head contusion and elbow contusion d/w the patient. Based on history, exam and diagnostic results, plan will be for outpatient follow up. Advised to apply ice to head and L elbow. Patient instructed to follow-up with pmd in 1-2 days without fail. Advised to take medication as prescribed. Return to the emergency room at any time for any new or worsening symptoms. Patient states she fully agrees with and understands discharge instructions. States that she agrees with the plan and disposition. Verbalized and repeated discharge instructions and plan. I have given the patient opportunity to ask any additional questions. Scribe Attestation: Documented by Ashley Borrero, acting as a scribe for Vannesa Aparicio PA-C. Provider Scribe Attestation: All medical record entries made by the Scribe were at my direction and personally dictated by me. I have reviewed the chart and agree that the record accurately reflects my personal performance of the history, physical exam, medical decision making, and the department course for this patient. I have also personally directed, reviewed, and agree with the discharge instructions and disposition. Disposition - Clinical Impression Clinical Impression: Contusion of elbow, left, Head injury - Patient ED Disposition Is Patient to be Admitted: No Counseled Patient/Family Regarding: Studies Performed, Diagnosis, Need For Followup - Disposition Disposition: Routine/Home Disposition Time: 22:00 Condition: STABLE Additional Instructions: Cathryn por dejarnos atenderlo manuel. Usted fue tratado por shyla lesin en la lou, contusin en el codo. La atencin mdica de emergencia que recibi hoy se dirigi a los sntomas agudos de presentacin. reas de dolor de hielo. Jazlyn s ntomas pueden tardar varios sanchez en resolverse. Regrese al Departamento de Emergencia en cualquier momento si los sntomas empeoran, no mejoran o si surge algn otro problema. Por favor, pngase en contacto con horta mdico en 2 sanchez para shyla nueva evaluaci n y seguimiento. Lleve todos los documentos que recibi al momento del roberto junto con los medicamentos a horta visita de seguimiento. Nuestro tratamiento no puede reemplazar la atencin mdica en curso por parte de un proveedor de atenci n primaria (PCP) fuera del departamento de emergencias. Cathryn por permitir que el equipo de [facility] sea parte de horta cuidado hoy. Si se hizo shyla radiografa: un radilogo revisar la lectura del DE si se necesita algn cambio en el tratamiento, nos comunicaremos con usted. Instructions: Closed Head Injury (DC), Contusion (DC) Forms: [employer] (Ukrainian) Print Language: ICELANDIC
--- NOTE | 2017-10-10 07:59 | RAD ---
Date of service: 10/09/2017 PROCEDURE: Radiographs of the left elbow. HISTORY: pain COMPARISON: No prior. FINDINGS: BONES: No acute fracture or destructive bony lesion identified. JOINTS: Normal. No osteoarthritis. SOFT TISSUES: Vascular calcifications are identified at the medial soft tissues with dialysis fistula or shunt appreciated medially. Wall stent is identified in the plane of the arterial side of the dialysis fistula or shunt. Further, embolic material is identified at the distal right arm soft tissues anteriorly. JOINT EFFUSION: None. OTHER FINDINGS: None IMPRESSION: No acute fracture or dislocation identified. Various incidental vascular findings, the majority of which are related to dialysis fistula/ON.
--- NOTE | 2017-10-10 10:46 | CT ---
Date of service: 10/09/2017 PROCEDURE: CT HEAD WITHOUT CONTRAST. HISTORY: fall COMPARISON: Noncontrast head CT 06/06/2017. TECHNIQUE: Axial computed tomography images were obtained through the head/brain without intravenous contrast. Radiation dose: Total exam DLP = 785.05 mGy-cm. This CT exam was performed using one or more of the following dose reduction techniques: Automated exposure control, adjustment of the mA and/or kV according to patient size, and/or use of iterative reconstruction technique. FINDINGS: HEMORRHAGE: No intracranial hemorrhage. BRAIN: Chronic lacune at the left caudate head is reiterated. Otherwise stable noncontrast head CT exam including diffuse cerebral atrophy chronic microangiopathy, both of which remain age-appropriate. Normal corticomedullary differentiation is appreciated otherwise and there is no mass effect. The midline brain anatomy appears stable and there is no suspicious extra-axial collection appreciated. Posterior fossa contents appear unremarkable the brainstem. Note is made of relatively prominent cavernous ICA atherosclerosis bilaterally. VENTRICLES: Unremarkable. No hydrocephalus. CALVARIUM: No destructive bony lesion or displaced fracture identified including through the skullbase. PARANASAL SINUSES: Unremarkable as visualized. No significant inflammatory changes. MASTOID AIR CELLS: Unremarkable as visualized. No inflammatory changes. OTHER FINDINGS: None. IMPRESSION: No definite acute intracranial findings as discussed above. Stable age-related age-appropriate neuro degenerative changes are identified once again with a chronic lacune left caudate head reiterated. No fracture identified. Follow up CT or MRI are available if clinically warranted. Concordant preliminary report from [facility], 10/09/2017.
== END 2017-10-09 23:03 | disposition home or self-care (01) ==
LOC: H.ER 20:29
DX: S00.03XA Contusion of scalp, initial encounter (principal); S09.90XA Unspecified injury of head, initial encounter; S50.02XA Contusion of left elbow, initial encounter; W01.0XXA Fall on same level from slipping, tripping and stumbling without subsequent striking against object, initial encounter; Y92.89 Other specified places as the place of occurrence of the external cause; N18.6 End stage renal disease; Z86.73 Personal history of transient ischemic attack (TIA), and cerebral infarction without residual deficits; Z99.2 Dependence on renal dialysis; Z95.5 Presence of coronary angioplasty implant and graft; E11.22 Type 2 diabetes mellitus with diabetic chronic kidney disease
CPT/HCPCS: 70450; 73080; 96372; 99285; J2270

== ENCOUNTER 2018-02-20 18:52 | Emergency (ER) | payer OTHER ==
[2018-02-20 18:52] VITALS: BMI 23.0
--- NOTE | 2018-02-20 20:09 | ED PDOC ---
HPI: Headache Time Seen by Provider: 02/20/18 19:04 Chief Complaint (Nursing): Headache Chief Complaint (Provider): Headache History Per: Patient History/Exam Limitations: no limitations Onset/Duration Of Symptoms: Days (x 1) Current Symptoms Are (Timing): Still Present Quality: Pressure, "Pain" Preceeding Symptoms: None Additional Complaint(s): 73 year old female with a history of HTN, CVA and ESRD presents to the ED with a headache for 16 hours. Pain is described as pressure like at bilateral temples and is associated with dizziness. She also reports diarrhea for months. Patient completed dialysis today and, because the symptoms persisted, she came to the ER. She denies thunderclap, focal weakness, nausea, difficulty with speech, blurry vision and unsteady gait. Patient admits that she had all these symptoms prior to her stroke this past April. Offers no other complaints. PMD: Dr. Sawant - Risk Factors SAH Risk Factors: Neg: Worst Headache Of Life Past Medical History Reviewed: Historical Data, Nursing Documentation, Vital Signs Vital Signs: Last Vital Signs Temp 97.7 F 02/20/18 18:58 Pulse 83 02/20/18 18:58 Resp 20 02/20/18 18:58 BP 174/74 H 02/20/18 18:58 Pulse Ox 98 02/20/18 18:58 - Medical History PMH: Anemia, Arthritis, CAD, Depression, Diabetes (type II), HTN, Hypercholesterolemia, Pneumonia, End Stage Renal Disease, Chronic Kidney Disease (HD M/W/F), Rheumatoid Arthritis Denies: CHF, COPD, HIV, Hypothyroidism - Surgical History Surgical History: Appendectomy, Back Surgery (fusion and plates), Cholecystectomy, Coronary Stent Other surgeries: left AV shunt - Family History Family History: States: Unknown Family Hx - Social History Current smoker - smoking cessation education provided: No - Immunization History Hx Tetanus Toxoid Vaccination: No Hx Influenza Vaccination: No Hx Pneumococcal Vaccination: No - Home Medications Home Medications: Ambulatory Orders Medication Instructions Recorded Aspirin 81 mg PO DAILY 08/09/16 Ferrous Sulfate [Feosol] 325 mg PO DAILY 08/09/16 Gabapentin [Neurontin] 300 mg PO DAILY 08/09/16 Isosorbide Dinitrate 30 mg PO DAILY 08/09/16 Lisinopril [Zestril] 10 mg PO DAILY 08/09/16 Sevelamer Carbonate [Renvela] 800 mg PO DAILY 08/09/16 Temazepam [Restoril] 30 mg PO HS 08/09/16 amLODIPine [Norvasc] 10 mg PO DAILY 08/09/16 Tramadol HCl [Ultram] 50 mg PO PRN PRN 05/19/17 Meclizine HCl 25 mg PO QID PRN #30 tablet 02/20/18 - Allergies Allergies/Adverse Reactions: Allergies Allergy/AdvReac Type Severity Reaction Status Date / Time No Known Allergies Allergy Verified 06/13/16 15:16 Review of Systems ROS Statement: Except As Marked, All Systems Reviewed And Found Negative Gastrointestinal: Positive for: Diarrhea (for months). Negative for: Nausea, Vomiting Neurological: Positive for: Headache (pressure like pain to both temples). Negative for: Weakness, Numbness, Change in Speech, Confusion, Dizziness Physical Exam - Reviewed Nursing Documentation Reviewed: Yes Vital Signs Reviewed: Yes - Physical Exam Appears: Positive for: Well, No Acute Distress Head Exam: Positive for: ATRAUMATIC, NORMAL INSPECTION, NORMOCEPHALIC Skin: Positive for: Warm, Dry Eye Exam: Positive for: EOMI, PERRL. Negative for: Nystagmus ENT: Positive for: Other (dry mucous membranes) Neck: Positive for: Painless ROM, Supple Cardiovascular/Chest: Positive for: Regular Rate, Rhythm, Chest Non Tender Respiratory: Positive for: Normal Breath Sounds. Negative for: Respiratory Distress Gastrointestinal/Abdominal: Positive for: Soft. Negative for: Tenderness Back: Positive for: Normal Inspection. Negative for: Decreased ROM Extremity: Positive for: Normal ROM (5/5 strength to all extremities). Negative for: Deformity Lymphatic: Negative for: Adenopathy Neurologic/Psych: Positive for: Alert, Oriented (x 3). Negative for: Motor/Sensory Deficits, Aphasia, Facial Droop - Laboratory Results Result Diagrams: 02/20/18 19:49 02/20/18 19:49 - ECG ECG: Positive for: Interpreted By Me ECG Rhythm: Positive for: Sinus Rhythm, Nonspecific Changes (but similar to EKG 05/2017) O2 Sat by Pulse Oximetry: 98 (RA) Pulse Ox Interpretation: Normal Medical Decision Making Medical Decision Makin:35 Impression: headache Differential diagnoses include but are not limited to: hypertensive encephalopathy, electrolyte abnormality, CVA and vertigo Initial Plan: --Blood type --CT Head --EKG --CMP --Mag Phos --CBC --PTT/PT --Antivert 25 mg PO --Tylenol 975 mg PO 20:[address] FINDINGS: BRAIN Chronic periventricular and subcortical microvascular disease is seen. VENTRICLES: There is generalized parenchymal atrophy noted as demonstrated by symmetrical dilatation of ventricles and sulci. ORBITS: The orbits are unremarkable. SINUSES AND MASTOIDS: The paranasal sinuses and mastoid air cells are clear. BONES: No fracture. SOFT TISSUES: Unremarkable. MISCELLANEOUS: No acute intracranial pathology. IMPRESSION: 1. There is generalized parenchymal atrophy noted as demonstrated by symmetrical dilatation of ventricles and sulci. 2. Chronic periventricular and subcortical microvascular disease is seen. 3. No acute intracranial pathology. 21:27 --Labs demonstrate no acute abnormalities (stable leukopenia, anemia, and renal failure.) --DW pt findings. --Pt reports feeling better and eager to go home. --Gabapentin 300 mg PO and Labetalol 100 mg PO (missed her earlier doses.) Scribe Attestation: Documented by Liz Dangelo, acting as a scribe for Terri Rizzo MD Provider Scribe Attestation: All medical record entries made by the Scribe were at my direction and personally dictated by me. I have reviewed the chart and agree that the record accurately reflects my personal performance of the history, physical exam, medical decision making, and the department course for this patient. I have also personally directed, reviewed, and agree with the discharge instructions and disposition. Disposition - Clinical Impression Clinical Impression: Headache, HTN (hypertension) - Disposition Referrals: Shania Sawant MD [Family Provider] - Disposition: Routine/Home Disposition Time: 21:30 Condition: IMPROVED Prescriptions: Meclizine HCl 25 mg PO QID PRN #30 tablet PRN Reason: Dizziness Instructions: High Blood Pressure (DC), Headache, Adult (DC), Dizziness, Nonvertigo, (DC) Print Language: [place]
[2018-02-20 20:27] LABS: PARTIAL THROMBOPLASTIN TIME 30.9 Seconds (25.6-37.1)
[2018-02-20 20:32] LABS: BASO % 1.2 % (0.0-2.0); EOS # 0.2 K/uL (0.0-0.7); EOS % 7.5 % (0.0-4.0); HEMOGLOBIN 11.5 g/dL (12.0-16.0); LYMPH # 0.7 K/uL (1.0-4.3); LYMPH % 25.2 % (20.0-40.0); MEAN CELL VOLUME 87.5 fl (81.0-99.0); MEAN CORPUSCULAR HEMOGLOBIN 28.3 pg (27.0-31.0); MEAN CORPUSCULAR HGB CONC 32.4 g/dL (33.0-37.0); MEAN PLATELET VOLUME 9.4 fl (7.2-11.7); MONO # 0.3 K/uL (0.0-0.8); MONO % 10.5 % (0.0-10.0); NEUT # 1.6 K/uL (1.8-7.0); NEUT % 55.6 % (50.0-75.0); NRBC % 0.1 % (0.0-0.0); RBC 4.07 Mil/uL (3.80-5.20); RED CELL DISTRIBUTION WIDTH 14.6 % (11.5-14.5); WHITE BLOOD COUNT 2.9 K/uL (4.8-10.8)
[2018-02-20 20:35] VITALS: RESP 18
[2018-02-20 20:41] LABS: ALB/GLOB RATIO 1.3 (1.0-2.1); ALBUMIN 4.7 g/dL (3.5-5.0); CALCIUM 9.6 mg/dL (8.4-10.2)
[2018-02-20 22:09] VITALS: BP 149/74; PULSE 83; TEMP 98; O2SAT 100
--- NOTE | 2018-02-21 06:24 | CARD ---
APPROVED REPORT Date of service: 02/20/2018 EKG Measurement Heart [id number] <Conclusion> Normal sinus rhythm Possible Left atrial enlargement Right bundle branch block Left anterior fascicular block Bifascicular block Abnormal ECG
--- NOTE | 2018-02-21 09:03 | CT ---
Date of service: 02/20/2018 PROCEDURE: CT HEAD WITHOUT CONTRAST. HISTORY: dizziness COMPARISON: Comparison is made to the previous study dated 10/09/2017 TECHNIQUE: Axial computed tomography images were obtained through the head/brain without intravenous contrast. Radiation dose: Total exam DLP = 799.12 mGy-cm. This CT exam was performed using one or more of the following dose reduction techniques: Automated exposure control, adjustment of the mA and/or kV according to patient size, and/or use of iterative reconstruction technique. FINDINGS: HEMORRHAGE: No intracranial hemorrhage. BRAIN: No mass effect or edema. Mild atrophy and chronic microvascular white matter ischemic changes are again noted. VENTRICLES: Unremarkable. No hydrocephalus. CALVARIUM: Unremarkable. PARANASAL SINUSES: Unremarkable as visualized. No significant inflammatory changes. MASTOID AIR CELLS: Unremarkable as visualized. No inflammatory changes. OTHER FINDINGS: None. IMPRESSION: No evidence of acute intracranial hemorrhage mass effect or midline shift. No significant interval changes noted compared to the previous exam. Preliminary report was submitted by [facility] Radiology contains concordant findings.
== END 2018-02-20 22:11 | disposition home or self-care (01) ==
LOC: H.ER 18:52
DX: R51 Headache (principal); I10 Essential (primary) hypertension; E11.22 Type 2 diabetes mellitus with diabetic chronic kidney disease; N18.6 End stage renal disease; M06.9 Rheumatoid arthritis, unspecified; Z95.5 Presence of coronary angioplasty implant and graft; I12.0 Hypertensive chronic kidney disease with stage 5 chronic kidney disease or end stage renal disease; Z99.2 Dependence on renal dialysis

== ENCOUNTER 2018-06-29 17:02 | Emergency (ER) | payer OTHER ==
[2018-06-29 17:23] VITALS: TEMP 98.1; O2SAT 97
[2018-06-29 17:24] VITALS: BMI 28.1
--- NOTE | 2018-06-29 19:29 | ED PDOC ---
HPI: Back Time Seen by Provider: 06/29/18 18:16 Chief Complaint (Nursing): Back Pain Chief Complaint (Provider): neck and back pain History Per: Patient History/Exam Limitations: no limitations Additional Complaint(s): 73 y/o F with hx of HTN, HL, DM, CAD s/p stent, arthritis, ESRD on HD (M/W/F) who presents with neck pain that radiates down her back and up to the base of her skull and shoulders x 1 week. The pain has been persistent and slightly worse over the last couple of days. Patient rates pain 8/10 on pain scale currently. She has been taking Tylenol with minimal improvement. She was given "a stronger Tylenol" in dialysis yesterday with some improvement. Denies any fall or trauma. She occasionally has numbness and tingling in her hands since the neck pain began but denies this currently. Pt states that this pain is different than her usual arthritis. She takes Tramadol for arthritis as she was told not to take Naproxen or Ibuprofen due to her kidneys but ran out of her Tramadol several days ago and her primary care doctor is on vacation without coverage until next week. Denies fever, chills, night sweats, speech or visual disturbance, weakness, dizziness or lower extremity numbness or tingling. Furthermore, pt states that she did not take any of her BP meds today. Past Medical History Reviewed: Historical Data, Nursing Documentation, Vital Signs Vital Signs: Last Vital Signs Temp 98.1 F 06/29/18 17:22 Pulse 86 06/29/18 17:22 Resp 20 06/29/18 17:22 BP 194/79 H 06/29/18 17:22 Pulse Ox 97 06/29/18 17:22 - Medical History PMH: Anemia, Arthritis, CAD, Depression, Diabetes (type II), HTN, Hypercholesterolemia, Pneumonia, End Stage Renal Disease, Chronic Kidney Disease (HD M/W/F), Rheumatoid Arthritis Denies: CHF, COPD, HIV, Hypothyroidism - Surgical History Surgical History: Appendectomy, Back Surgery (fusion and plates), Cholecystectomy, Coronary Stent - Family History Family History: States: Unknown Family Hx - Immunization History Hx Tetanus Toxoid Vaccination: No Hx Influenza Vaccination: No Hx Pneumococcal Vaccination: No - Home Medications Home Medications: Ambulatory Orders Medication Instructions Recorded Aspirin 81 mg PO DAILY 08/09/16 Ferrous Sulfate [Feosol] 325 mg PO DAILY 08/09/16 Gabapentin [Neurontin] 300 mg PO DAILY 08/09/16 Isosorbide Dinitrate 30 mg PO DAILY 08/09/16 Lisinopril [Zestril] 10 mg PO DAILY 08/09/16 Sevelamer Carbonate [Renvela] 800 mg PO DAILY 08/09/16 Temazepam [Restoril] 30 mg PO HS 08/09/16 amLODIPine [Norvasc] 10 mg PO DAILY 08/09/16 Tramadol HCl [Ultram] 50 mg PO PRN PRN 05/19/17 Meclizine HCl 25 mg PO QID PRN #30 tablet 02/20/18 traMADol [Ultram] 50 mg PO BID PRN #8 tab 06/29/18 - Allergies Allergies/Adverse Reactions: Allergies Allergy/AdvReac Type Severity Reaction Status Date / Time No Known Allergies Allergy Verified 06/29/18 17:22 Review of Systems Constitutional: Negative for: Fever, Chills Musculoskeletal: Positive for: Neck Pain Neurological: Positive for: Numbness. Negative for: Weakness, Confusion, Altered Mental Status, Headache, Dizziness Physical Exam - Reviewed Nursing Documentation Reviewed: Yes Vital Signs Reviewed: Yes - Physical Exam Appears: Positive for: Uncomfortable Head Exam: Positive for: ATRAUMATIC Skin: Positive for: Normal Color Neck: Positive for: Decreased ROM (with lateral rotation, normal ROM with flexion and extension) Extremity: Positive for: Normal ROM (with flexion and extension of elbows, hips, knees B/L) Neurological/Psych: Positive for: Awake, Alert, Symmetric/Intact Strength (in B/L upper and lower extremities), Oriented. Negative for: Lethargic, Motor/Sensory Deficits (to light touch in B/L upper and lower extremity), Facial Droop - ECG O2 Sat by Pulse Oximetry: 97 Medical Decision Making Medical Decision Making: Morphine 2mg IV x 1 Lisinopril 10mg PO x 1 Amlodipine 10mg PO x 1 Labetalol 100mg PO x 1 Re-evaluation Disposition - Clinical Impression Clinical Impression: Neck pain - Patient ED Disposition Is Patient to be Admitted: Transfer of Care (HORACIO Hook) - Disposition Disposition: Transfer of Care Disposition Time: 20:15 Condition: FAIR Additional Instructions: Follow up with your primary care doctor early next week for further refills of pain medications. Take Tylenol for pain or Tramadol for severe pain but avoid Tramadol as much as possible as it is a narcotic and is addictive. Prescriptions: traMADol [Ultram] 50 mg PO BID PRN #8 tab PRN Reason: Pain, Severe (8-10) Instructions: Generalized Neck Pain (DC) Forms: [employer] (Maltese) Print Language: BENGALI
[2018-06-29] MEDS ORDERED: Lidocaine 5% Patch TD STA (20:53)
[2018-06-29] MEDS ORDERED: Lidocaine 5% Patch TD ONE (21:09)
[2018-06-29 21:18] LABS: EOS # 0.2 K/uL (0.0-0.7); HEMOGLOBIN 11.9 g/dL (12.0-16.0); LYMPH # 0.8 K/uL (1.0-4.3); LYMPH % 25.9 % (20.0-40.0); MEAN CELL VOLUME 89.4 fl (81.0-99.0); MEAN CORPUSCULAR HGB CONC 32.4 g/dL (33.0-37.0); MEAN PLATELET VOLUME 8.4 fl (7.2-11.7); MONO # 0.3 K/uL (0.0-0.8); MONO % 9.1 % (0.0-10.0); NEUT # 1.8 K/uL (1.8-7.0); NRBC % 0.2 % (0.0-0.0); RBC 4.12 Mil/uL (3.80-5.20); WHITE BLOOD COUNT 3.1 K/uL (4.8-10.8)
[2018-06-29 21:30] LABS: ALB/GLOB RATIO 1.5 (1.0-2.1); ALBUMIN 4.6 g/dL (3.5-5.0); ALT/SGPT 21 U/L (9-52); AST/SGOT 29 U/L (14-36); BLOOD UREA NITROGEN 38 mg/dl (7-17); CALCIUM 9.6 mg/dL (8.4-10.2); GFR NON-AFRICAN AMERICAN 10
--- NOTE | 2018-06-29 22:38 | ED PDOC ---
- Laboratory Results Result Diagrams: 06/29/18 21:14 06/29/18 21:14 Lab Results: Troponin I < 0.0120 ng/mL (0.00-0.120) 06/29/18 21:14 Total Bilirubin 0.7 mg/dl (0.2-1.3) 06/29/18 21:14 AST 29 U/L (14-36) 06/29/18 21:14 ALT 21 U/L (9-52) 06/29/18 21:14 Alkaline Phosphatase 105 U/L (38-126) 06/29/18 21:14 Total Protein 7.7 G/DL (6.3-8.2) 06/29/18 21:14 Albumin 4.6 g/dL (3.5-5.0) 06/29/18 21:14 Globulin 3.1 gm/dL (2.2-3.9) 06/29/18 21:14 Albumin/Globulin Ratio 1.5 (1.0-2.1) 06/29/18 21:14 - ECG ECG: Positive for: Interpreted By Me ECG Rhythm: Positive for: Sinus Rhythm. Negative for: ST/T Changes Rate: 89 O2 Sat by Pulse Oximetry: 97 - Progress ED Course And Treament: 1999 Signed out to me pending re-evaluation 2019 On my initial evaluation pt. reports no relief in pain. Labs, CT head and C-spine w/o contrast, lidoderm ordered. 2250 interpreter translator [id number] On re-evaluation, pt. reports good relief of pain. Patient and daughter (Nida) informed of all results and advised to f/u with PMD for further evaluation of radiolucent mass on C-spine CT and possible biopsy. Given copy of CT report. Both patient and daughter verbalized correct understanding of plan and care. Pt. searched on [place] [employer] aware. Last Ultram Rx was given on 05/25/2018. Patient and family also verbally counseled on appropriate use of opioids including risks and safety plan. Medical Decision Making Medical Decision Making: Time: 22:[address] FINDINGS: BRAIN: No acute intraparenchymal hemorrhage. No mass lesion. No CT evidence for acute territorial infarct. No midline shift or extra-axial collections. Mild-moderate age-appropriate diffuse cerebral and cerebellar atrophy is noted. There are bilateral periventricular and subcortical white matter hypolucencies compatible with mild chronic microvascular disease. An old 7.4 mm lacunar infarction is seen in the posterior left head of the caudate nucleus .Focal calcification is seen in the basal ganglia bilaterally; usually an idiopathic findinng. VENTRICLES: No hydrocephalus. Cavum septum pellucidum is again noted; a normal variant finding. VASCULAR: Dense atherosclerotic vascular plaquing is seen within the vertebral arteries and carotid siphons bilaterally. ORBITS: The orbits are unremarkable. SINUSES AND MASTOIDS: The paranasal sinuses and mastoid air cells are clear. BONES: No fracture. SOFT TISSUES: Unremarkable. IMPRESSION: 1. No acute intracranial abnormality. 2. Mild-moderate age-appropriate cerebral and cerebellar atrophy. 3. 7.4 mm old lacunar infarction in the posterior aspect of the left head of the caudate nucleus. 4. Extensive atherosclerotic vascular plaquing as described above. 5. Cavum septum pellucidum is noted; a normal variant finding. 6. No significant interval change. 22:15 CT Cervical Spine FINDINGS: ALIGNMENT: Bony alignment is anatomic. DEGENERATIVE CHANGES: No significant canal stenosis or neural foraminal narrowing evident. Advanced bilateral uncovertebral facet arthropathy is seen at C6-7. Moderate-advanced degenerative arthritis is seen within the atlanto-dens interval. Disc interspace narrowing is noted at C6-7 and C7-T1 consistent with degenerative disc disease. The remaining disc interspaces appear adequately maintained. SOFT TISSUES: The prevertebral soft tissues are within normal limits. Dense atheromatous calcific plaquing is seen within the carotid bulbs bilaterally. BONES: No acute fracture. A 6.3 x 8.3 mm mildly expansile radiolucency is seen in the posterior left lamina-base of the spinous process of C3. This could be compatible with multiple myeloma defect or lytic metastatic deposit. IMPRESSION: 1. Evidence of advanced degenerative disc disease at C6-7 and C7-T1. 2. 6.3 x 8.3 mm radiolucent lesion in the left lamina-base of the spinous process of C3. This could be compatible with multiple myeloma defect or lytic metastatic defect. 3. Moderate-advanced degenerative arthritis within the atlantodens interval. 4. Advanced bilateral uncovertebral facet arthropathy at C6-7. 5. Dense atherosclerotic plaquing within the carotid bulbs bilaterally. Scribe Attestation: Documented by Dayne Angeles, acting as a scribe for Tomer Hook PA-C Provider Scribe Attestation: All medical record entries made by the Scribe were at my direction and personally dictated by me. I have reviewed the chart and agree that the record accurately reflects my personal performance of the history, physical exam, medical decision making, and the department course for this patient. I have also personally directed, reviewed, and agree with the discharge instructions and disposition Disposition - Clinical Impression Clinical Impression: Neck pain - POA Present On Arrival: None - Disposition Disposition: Routine/Home Disposition Time: 22:55 Condition: IMPROVED Additional Instructions: Follow up with your primary care doctor early next week for further refills of pain medications. Take Tylenol for pain or Tramadol for severe pain but avoid Tramadol as much as possible as it is a narcotic and is addictive. Prescriptions: traMADol [Ultram] 50 mg PO BID PRN #8 tab PRN Reason: Pain, Severe (8-10) Instructions: Generalized Neck Pain (DC) Forms: [email or web address] (Estonian) Print Language: CONGOLESE
[2018-06-29 23:09] VITALS: BP 173/73; RESP 17
[2018-06-30 01:39] VITALS: PULSE 89
--- NOTE | 2018-06-30 09:43 | CARD ---
APPROVED REPORT Date of service: 06/29/2018 EKG Measurement Heart [id number] <Conclusion> Normal sinus rhythm Possible Left atrial enlargement Right bundle branch block Left anterior fascicular block Bifascicular block Abnormal ECG
--- NOTE | 2018-06-30 10:21 | CT ---
Date of service: 06/29/2018 PROCEDURE: CT HEAD WITHOUT CONTRAST. HISTORY: Headache COMPARISON: Comparison made with prior CT scan of brain 02/20/2018. TECHNIQUE: Axial computed tomography images were obtained through the head/brain without intravenous contrast. Radiation dose: Total exam DLP = 791.02 mGy-cm. This CT exam was performed using one or more of the following dose reduction techniques: Automated exposure control, adjustment of the mA and/or kV according to patient size, and/or use of iterative reconstruction technique. FINDINGS: HEMORRHAGE: No acute parenchymal, subarachnoid nor extra-axial hemorrhage. BRAIN: Moderate diffuse and confluent chronic white matter ischemic changes with some minimal extension of these changes into the white matter tracts of both basal nuclei. There are also more discrete chronic left basal ganglia lacunar type infarcts as well. Note that the possibility of a small hyperacute infarct cannot be excluded on this study and if there is any concern, recommend followup MRI.. Moderate generalized volume loss. Calcifications of the carotid siphons and both vertebral arteries. VENTRICLES: No obstructive hydrocephalus. Redemonstrated are cavum septum pellucidum and vergae. CALVARIUM: Calvarial fractures. Extensive vascular calcifications within the scalp consistent with underlying IDDM. Clinical correlation recommended PARANASAL SINUSES: Unremarkable as visualized. No significant inflammatory changes. MASTOID AIR CELLS: Unremarkable as visualized. No inflammatory changes. OTHER FINDINGS: Changes of bilateral cataract surgery. IMPRESSION: Moderate diffuse and confluent chronic white matter ischemic changes with some minimal extension of these changes into the white matter tracts of both basal nuclei. There are also more discrete chronic left basal ganglia lacunar type infarcts as well. Note that the possibility of a small hyperacute infarct cannot be excluded on this study and if there is any concern, recommend followup MRI. Moderate generalized volume loss. No acute parenchymal, subarachnoid nor extra-axial hemorrhage.
--- NOTE | 2018-06-30 10:48 | CT ---
Date of service: 06/29/2018 PROCEDURE: CT Cervical Spine without contrast HISTORY: Pain. COMPARISON: None available. TECHNIQUE: Axial computed tomography images were obtained of the cervical spine without the use of intravenous contrast. Coronal and sagittal reformatted images were created and reviewed. Radiation dose: Total exam DLP = 278.54 mGy-cm. This CT exam was performed using one or more of the following dose reduction techniques: Automated exposure control, adjustment of the mA and/or kV according to patient size, and/or use of iterative reconstruction technique. FINDINGS: VERTEBRAE: No acute compression fractures nor retropulsed fragments. Vertebral bodies exhibit normal stature. Straightening of the normal cervical lordosis which may in part be due to patient positioning gantry however underlying element of muscle spasm may contribute. Note is made of a elliptical shaped lucency within the left parasagittal aspect of the posterior lamina and spinous process junction of uncertain etiology.. There is also a small lucency within the right superior L3 lamina-facet junction abutting the facet joint. Followup bone scan recommended to exclude the possibility of a infiltrating marrow disease process such as myeloma or metastatic lytic lesion. DISCS/SPINAL CANAL/NEURAL FORAMINA: Multilevel degenerative spondylosis is present. At the C6-C7 level, there is disc space narrowing with endplate eburnation and small irregular disc ridge complex contiguous with hypertrophic uncovertebral joints. The central canal is slightly narrowed with presumed mild compressive effects on the ventral surface of the spinal cord. Uncovertebral joints are hypertrophic as are the facets with bilateral foraminal stenosis. At the C5-C6 level, there is relatively adequate disc height. Medium-sized central and bilateral disc herniation ridge complex compresses the ventral surface of the thecal sac and spinal cord. Minor canal narrowing.. Exit foramina appear adequate despite slightly prominent uncovertebral facets. At the C4-C5 level, there is adequate disc height. Small central and bilateral disc bulge ridge complex is present which minimally flattens the ventral surface of the thecal sac. Central canal appears adequate. The uncovertebral joints and facets are minimally overgrown. Exit foramina adequate. At the C3-C4 level, there is adequate disc height. Minor intradiscal calcification is present.. The uncovertebral joints are slightly overgrown. Facet joints are mildly hypertrophic left greater than right.. Right exit foramen adequate. Left exit foramen is marginal to adequate. PARASPINAL SOFT TISSUES: Unremarkable. OTHER FINDINGS: Vascular calcifications of both distal common carotid arteries and bifurcations extending into the proximal internal carotid arteries. Consider follow-up carotid Doppler exam. The thyroid gland is slightly prominent and lobular in contour with heterogeneous parenchyma. Questionable low-attenuation foci in the inferior and mid anterolateral aspect of the left lobe thyroid gland. Consider follow-up thyroid ultrasound for further evaluation. IMPRESSION: No acute fractures. Multilevel degenerative spondylosis most notably affecting the cease 5 C6 level where there is a medium-sized disc herniation that compresses the ventral surface of the spinal cord.. Nonspecific lucencies within the C3 vertebral body as above. Recommend followup bone scan for further evaluation to exclude the possibility of infiltrating marrow disease process such as myeloma or metastatic deposit Concordant preliminary findings.
== END 2018-06-29 23:08 | disposition home or self-care (01) ==
LOC: H.ER 17:02
DX: M54.2 Cervicalgia (principal); M54.9 Dorsalgia, unspecified; E11.22 Type 2 diabetes mellitus with diabetic chronic kidney disease; E78.00 Pure hypercholesterolemia, unspecified; F32.9 Major depressive disorder, single episode, unspecified; I12.0 Hypertensive chronic kidney disease with stage 5 chronic kidney disease or end stage renal disease; N18.6 End stage renal disease; Z86.73 Personal history of transient ischemic attack (TIA), and cerebral infarction without residual deficits; Z95.5 Presence of coronary angioplasty implant and graft; Z99.2 Dependence on renal dialysis
CPT/HCPCS: 70450; 72125; 80053; 84484; 85025; 93005; 96374; 99283; J2270